=== PATIENT | female | born 2000 | race Caucasian/White ===

== ENCOUNTER 2021-05-04 17:18 | Emergency (ER) | payer OTHER, MEDICAID, SELFPAY ==
[2021-05-04] VITALS (18 sets, daily range): BP systolic 123–146; BP diastolic 58–93; PULSE 111–169; RESP 11–24; O2SAT 95–100
[2021-05-04 17:48] LABS: Add Manual Diff / Slide Review NO; Basophils Absolute Auto 0 /uL (0-100); Basophils Percent Auto 0.1 % (0-2); Eosinophils Absolute Auto 0 /uL (0-450); Eosinophils Percent Auto 0.2 % (2-4); Hematocrit 41.4 % (36-46); Hemoglobin 13.9 g/dL (12.0-16.0); Lymphocytes Absolute Auto 700 /uL (1100-4500); Lymphocytes Percent Auto 3.2 % (25-40); Mean Corpuscular HGB Conc 33.5 % (30-36); Mean Corpuscular Hemoglobin 25.5 PG (26-34); Mean Corpuscular Volume 76.1 fL (80-100); Monocytes Absolute Auto 1000 /uL (0-900); Monocytes Percent Auto 4.7 % (3-14); Neutrophils Absolute Auto 19400 /uL (1500-7000); Neutrophils Percent Auto 91.8 % (50-75); Platelet Count 490 X10^3/uL (150-400); Red Blood Cell Count 5.45 X10^6/uL (4.0-5.2); Red Cell Distribution Width 15.1 % (11.6-14.8); White Blood Cell Count 21.1 X10^3/uL (4.5-11.0)
--- NOTE | 2021-05-04 18:25 | DI.RAD.S_ITS ---
PROCEDURE: XR CHEST 1V INDICATIONS: chest pain, tachycardia TECHNIQUE: One view of the chest was acquired. COMPARISON: None. FINDINGS: Surgical changes and devices: Several overlying monitoring wires. Lungs and pleura: A subtle hazy right upper lobe alveolar opacity underlying monitoring wires, potentially summation artifact. No pleural effusion or pneumothorax. Mediastinum: Mediastinal contours appear normal. Heart size is normal. Bones and chest wall: No suspicious bony lesions. Overlying soft tissues appear unremarkable. IMPRESSION: 1. Possible hazy right upper lobe opacity, artifact versus infiltrate. Correlate clinically. Dictated by: Lynne Balderas M.D. on 05/04/2021 at 18:57 Approved by: Lynne Balderas M.D. on 05/04/2021 at 18:58
--- NOTE | 2021-05-04 18:25 | DI.US.S_ITS ---
PROCEDURE: US ABDOMEN LIMITED INDICATIONS: RUQ PAIN TECHNIQUE: Real-time focused scanning was performed of the abdominal right upper quadrant, with image documentation. COMPARISON: None. FINDINGS: The pancreas was not seen secondary to overlying bowel gas. The gallbladder is normal without stones, sludge, wall thickening, or pericholecystic fluid. The common bile duct is 3.8 mm. The visible liver is mildly hyperechoic compared to the kidney. No visible intrahepatic biliary dilatation. IMPRESSION: 1. Mild hepatic steatosis. 2. Normal gallbladder and no biliary dilatation. 3. Nonvisualized pancreas due to bowel gas. Dictated by: Lynne Balderas M.D. on 05/04/2021 at 19:32 Approved by: Lynne Balderas M.D. on 05/04/2021 at 19:34
--- NOTE | 2021-05-04 18:29 | ED.ABDPAIN ---
HPI - Abdominal Pain <Reginald Gambino PA-C - Last Filed: 05/04/21 20:05> General Chief Complaint: Abdominal Pain Stated Complaint: Vomiting ABD pain Time Seen by Provider: 05/04/21 18:19 Source: patient Mode of arrival: Ambulatory History of Present Illness HPI narrative: Patient is a 21-year-old female who presents to the ED complaining of right upper quadrant abdominal pain that started this morning when she woke up. There has been reports of nausea vomiting associated and has only had a small cup of apple sauce this morning but was able to eat a normal meal last night. No reported diarrhea pain is localized to the right upper quadrant does not radiate is constant. Patient has a history of heart problems in the past she was unable to recall the exact diagnosis however she was seen by [facility] few years ago and has not had any issues since then. Patient describes the pain to be a sharp sensation in severe Related Data Home Medications Medication Instructions Recorded Confirmed alprazolam 1 mg tablet (Xanax) 1 mg PO BID PRN 05/04/21 05/04/21 aspirin 81 mg capsule 81 mg PO DAILY 05/04/21 05/04/21 cetirizine 10 mg tablet 10 mg PO DAILY 05/04/21 05/04/21 clonazepam 2 mg tablet (Klonopin) 4 mg PO BID 05/04/21 05/04/21 estradiol cypionate 05/04/21 lamotrigine 100 mg tablet 50 mg PO DAILY 05/04/21 05/04/21 (Lamictal) levothyroxine 50 mcg capsule 50 mcg PO DAILY 05/04/21 05/04/21 progesterone micronized 200 mg 200 mg PO DAILY 05/04/21 05/04/21 capsule propranolol 20 mg tablet 20 mg PO BID 05/04/21 05/04/21 spironolactone 100 mg tablet 100 mg PO BID 05/04/21 05/04/21 trazodone 100 mg tablet 200 mg PO BEDTIME 05/04/21 05/04/21 Previous Rx's Medication Instructions Recorded ondansetron 4 mg disintegrating 4 mg PO Q8H #10 tab 05/05/21 tablet Allergies Allergy/AdvReac Type Severity Reaction Status Date / Time latex Allergy Verified 05/04/21 17:46 sumatriptan Allergy Verified 05/04/21 17:46 Patient History <Reginald Gambino PA-C - Last Filed: 05/04/21 20:05> Social History Smoking Status: Current every day smoker Smoking Status: Current every day smoker alcohol intake frequency: 0-2 drinks per day Exam <Reginald Gambino PA-C - Last Filed: 05/04/21 20:05> Initial Vital Signs Initial Vital Signs: Vital Signs Pulse Rate 169 H 05/04/21 17:22 Respiratory Rate 24 05/04/21 17:22 Blood Pressure 140/83 05/04/21 17:22 Pulse Oximetry 100 05/04/21 17:22 <Talia Maurer DO - Last Filed: 05/05/21 05:46> Initial Vital Signs Initial Vital Signs: Vital Signs Pulse Rate 169 H 05/04/21 17:22 Respiratory Rate 24 05/04/21 17:22 Blood Pressure 140/83 05/04/21 17:22 Pulse Oximetry 100 05/04/21 17:22 Course <Reginald Gambino PA-C - Last Filed: 05/04/21 20:05> Orders Ordered: ED Orders 05/04/21 20:50 Blood Culture Stat 05/04/21 21:30 UA Complete [Urinalysis and Microscopic] Stat Urine Drug Screen, Rapid Stat 05/04/21 22:06 CT abdomen pelvis wo con Stat Discontinued Medications Haloperidol (Haloperidol 5 Mg/Ml Vial) 2 mg IV NOW ONE Stop: 05/04/21 23:05 Last Admin: 05/04/21 23:32 Dose: 2 mg Documented by: HI Hydromorphone HCl (Hydromorphone 1 Mg Inj) 1 mg IV NOW ONE Stop: 05/04/21 18:46 Last Admin: 05/04/21 18:49 Dose: 1 mg Documented by: ZIYAD Hydromorphone HCl (Hydromorphone 1 Mg Inj) 1 mg IV NOW ONE Stop: 05/04/21 20:02 Last Admin: 05/04/21 20:13 Dose: 1 mg Documented by: ZIYAD Hydromorphone HCl (Hydromorphone 1 Mg Inj) 1 mg IV NOW ONE Stop: 05/04/21 22:07 Last Admin: 05/04/21 22:15 Dose: 1 mg Documented by: ZIYAD Sodium Chloride (Normal Saline 0.9%) 1,000 mls @ 1,000 mls/hr IV BOLUS ONE Stop: 05/04/21 19:24 Last Infusion: 05/04/21 21:24 Dose: 0 mls/hr Documented by: Admin: 05/04/21 18:30 Dose: 1,000 mls/hr Documented by: ZIYAD Piperacillin Sod/Tazobactam (Sod 3.375 gm/ Sodium Chloride) 100 mls @ 25 mls/hr IV Q8H MIR Last Infusion: 05/05/21 01:52 Dose: 0 mls/hr Documented by: Admin: 05/04/21 20:14 Dose: 25 mls/hr Documented by: ZIYAD Sodium Chloride (Normal Saline 0.9%) 1,000 mls @ 1,000 mls/hr IV BOLUS ONE Stop: 05/04/21 21:00 Last Infusion: 05/05/21 01:52 Dose: 0 mls/hr Documented by: Admin: 05/04/21 20:18 Dose: 1,000 mls/hr Documented by: ZIYAD Ketorolac Tromethamine (Ketorolac 30 Mg/Ml Vial) 15 mg IV NOW ONE Stop: 05/04/21 20:02 Last Admin: 05/04/21 20:13 Dose: 15 mg Documented by: ZIYAD Ondansetron HCl (Ondansetron 4 Mg Odt Prepack) 1 bottle MISC SEEINSTR ONE Stop: 05/05/21 01:32 Last Admin: 05/05/21 01:52 Dose: 1 bottle Documented by: HI Pantoprazole Sodium (Pantoprazole 40 Mg Vial) 40 mg IV NOW ONE Stop: 05/04/21 22:07 Last Admin: 05/04/21 22:15 Dose: 40 mg Documented by: ZIYAD Vital Signs Vital signs: Vital Signs - 8 hr 05/04/21 22:00 05/04/21 22:33 05/04/21 23:00 Temperature Pulse Rate 115 H 125 H 116 H Respiratory Rate 14 17 Blood Pressure 142/72 H Pulse Oximetry 97 99 96 05/04/21 23:01 05/04/21 23:30 05/05/21 00:00 Temperature Pulse Rate 113 H 128 H 102 H Respiratory Rate 16 11 L 13 Blood Pressure 128/58 L Pulse Oximetry 95 96 05/05/21 00:30 05/05/21 00:37 05/05/21 01:00 Temperature Pulse Rate 106 H 117 H 109 H Respiratory Rate 17 12 18 Blood Pressure 130/79 Pulse Oximetry 96 97 95 05/05/21 01:29 05/05/21 01:30 Temperature 98.2 F Pulse Rate 111 H 106 H Respiratory Rate 16 15 Blood Pressure 131/75 Pulse Oximetry 97 97 <Talia Maurer DO - Last Filed: 05/05/21 05:46> Orders Ordered: ED Orders 05/04/21 20:50 Blood Culture Stat 05/04/21 21:30 UA Complete [Urinalysis and Microscopic] Stat Urine Drug Screen, Rapid Stat 05/04/21 22:06 CT abdomen pelvis wo con Stat Discontinued Medications Haloperidol (Haloperidol 5 Mg/Ml Vial) 2 mg IV NOW ONE Stop: 05/04/21 23:05 Last Admin: 05/04/21 23:32 Dose: 2 mg Documented by: HI Hydromorphone HCl (Hydromorphone 1 Mg Inj) 1 mg IV NOW ONE Stop: 05/04/21 18:46 Last Admin: 05/04/21 18:49 Dose: 1 mg Documented by: ZIYAD Hydromorphone HCl (Hydromorphone 1 Mg Inj) 1 mg IV NOW ONE Stop: 05/04/21 20:02 Last Admin: 05/04/21 20:13 Dose: 1 mg Documented by: ZIYAD Hydromorphone HCl (Hydromorphone 1 Mg Inj) 1 mg IV NOW ONE Stop: 05/04/21 22:07 Last Admin: 05/04/21 22:15 Dose: 1 mg Documented by: ZIYAD Sodium Chloride (Normal Saline 0.9%) 1,000 mls @ 1,000 mls/hr IV BOLUS ONE Stop: 05/04/21 19:24 Last Infusion: 05/04/21 21:24 Dose: 0 mls/hr Documented by: Admin: 05/04/21 18:30 Dose: 1,000 mls/hr Documented by: ZIYAD Piperacillin Sod/Tazobactam (Sod 3.375 gm/ Sodium Chloride) 100 mls @ 25 mls/hr IV Q8H MIR Last Infusion: 05/05/21 01:52 Dose: 0 mls/hr Documented by: Admin: 05/04/21 20:14 Dose: 25 mls/hr Documented by: ZIYAD Sodium Chloride (Normal Saline 0.9%) 1,000 mls @ 1,000 mls/hr IV BOLUS ONE Stop: 05/04/21 21:00 Last Infusion: 05/05/21 01:52 Dose: 0 mls/hr Documented by: Admin: 05/04/21 20:18 Dose: 1,000 mls/hr Documented by: ZIYAD Ketorolac Tromethamine (Ketorolac 30 Mg/Ml Vial) 15 mg IV NOW ONE Stop: 05/04/21 20:02 Last Admin: 05/04/21 20:13 Dose: 15 mg Documented by: ZIYAD Ondansetron HCl (Ondansetron 4 Mg Odt Prepack) 1 bottle MISC SEEINSTR ONE Stop: 05/05/21 01:32 Last Admin: 05/05/21 01:52 Dose: 1 bottle Documented by: HI Pantoprazole Sodium (Pantoprazole 40 Mg Vial) 40 mg IV NOW ONE Stop: 05/04/21 22:07 Last Admin: 05/04/21 22:15 Dose: 40 mg Documented by: ZIYAD Vital Signs Vital signs: Vital Signs - 8 hr 05/04/21 22:00 05/04/21 22:33 05/04/21 23:00 Temperature Pulse Rate 115 H 125 H 116 H Respiratory Rate 14 17 Blood Pressure 142/72 H Pulse Oximetry 97 99 96 05/04/21 23:01 05/04/21 23:30 05/05/21 00:00 Temperature Pulse Rate 113 H 128 H 102 H Respiratory Rate 16 11 L 13 Blood Pressure 128/58 L Pulse Oximetry 95 96 05/05/21 00:30 05/05/21 00:37 05/05/21 01:00 Temperature Pulse Rate 106 H 117 H 109 H Respiratory Rate 17 12 18 Blood Pressure 130/79 Pulse Oximetry 96 97 95 05/05/21 01:29 05/05/21 01:30 Temperature 98.2 F Pulse Rate 111 H 106 H Respiratory Rate 16 15 Blood Pressure 131/75 Pulse Oximetry 97 97 MDM - Abdominal Pain <Reginald Gambino PA-C - Last Filed: 05/04/21 20:05> Lab Data Result diagrams: 05/04/21 17:40 05/04/21 18:09 Labs: Lab Results 05/04/21 05/04/21 05/04/21 Range/Units 17:40 17:40 18:09 WBC 21.1 H (4.5-11.0) X10^3/uL RBC 5.45 H (4.0-5.2) X10^6/uL Hgb 13.9 (12.0-16.0) g/dL Hct 41.4 (36-46) % MCV 76.1 L (80-100) fL MCH 25.5 L (26-34) PG MCHC 33.5 (30-36) % RDW 15.1 H (11.6-14.8) % Plt Count 490 H (150-400) X10^3/uL Neut % (Auto) 91.8 H (50-75) % Lymph % (Auto) 3.2 L (25-40) % Meagher % (Auto) 4.7 (3-14) % Eos % (Auto) 0.2 L (2-4) % Baso % (Auto) 0.1 (0-2) % Neut # (Auto) 68098 H (7949-4174) /uL Lymph # (Auto) 700 L (2391-0801) /uL Meagher # (Auto) 1000 H (0-900) /uL Eos # (Auto) 0 (0-450) /uL Baso # (Auto) 0 (0-100) /uL Sodium 140 (137-145) mmol/L Potassium 4.2 (3.4-5.1) mmol/L Chloride 103 (98-107) mmol/L Carbon Dioxide 23 (22-32) mmol/L BUN 17 (7-17) mg/dL Creatinine 0.72 (0.52-1.04) mg/dL Estimated GFR > 60.0 (>60) mL/min BUN/Creatinine Ratio 23.6 H (6-22) Glucose 120 H (70-100) mg/dL Lactate 2.2 H (0.7-2.1) mmol/L Calcium 10.2 (8.4-10.2) mg/dL Total Bilirubin 0.5 (0.2-1.3) mg/dL AST 26 (14-36) IU/L ALT 25 (<35) IU/L Alkaline Phosphatase 140 H (38-126) U/L Total Creatine Kinase (30-135) U/L CK-MB (CK-2) CK-MB (CK-2) Rel Index Troponin I (0.01-0.034) ng/mL NT-Pro-B Natriuret Pep (<125) pg/mL Total Protein 9.6 H (6.3-8.2) g/dL Albumin 5.1 H (3.5-5.0) g/dL Globulin 4.5 H (1.7-4.1) g/dL Albumin/Globulin Ratio 1.1 (1.0-2.8) Lipase 502 H (23-300) U/L Procalcitonin (<0.5) ng/mL Urine Color Urine Appearance Urine pH (4.5-8.0) Ur Specific [place] (1.000-1.035) Urine Protein (Negative) Urine Glucose (UA) (Negative) g/dL Urine Ketones (NEGATIVE) Urine Occult Blood (Negative) Urine Nitrate (Negative) Urine Bilirubin (NEGATIVE) Urine Urobilinogen (0.2) E.U./dL Ur Leukocyte Esterase (NEGATIVE) Urine RBC (0-5/HPF) Urine WBC (0-5/HPF) Ur Squamous Epith Cells (0-5/HPF) Urine Bacteria (None) Ur Culture Indicated? Micro UA Comment U Opiates 300ng/mL cut (Negative) Ur Oxycodone Screen (Negative) Urine Methadone Screen (Negative) Ur Barbiturates Screen (Negative) U Tricyclic Antidepress (Negative) Ur Phencyclidine Scrn (Negative) Ur Amphetamines Screen (Negative) U Methamphetamines Scrn (Negative) Ur MDMA Scrn (Ecstasy) (Negative) U Benzodiazepines Scrn (Negative) Urine Cocaine Screen (Negative) U Marijuana (THC) Screen (Negative) 05/04/21 05/04/21 05/04/21 Range/Units 18:09 18:09 21:14 WBC (4.5-11.0) X10^3/uL RBC (4.0-5.2) X10^6/uL Hgb (12.0-16.0) g/dL Hct (36-46) % MCV (80-100) fL MCH (26-34) PG MCHC (30-36) % RDW (11.6-14.8) % Plt Count (150-400) X10^3/uL Neut % (Auto) (50-75) % Lymph % (Auto) (25-40) % Meagher % (Auto) (3-14) % Eos % (Auto) (2-4) % Baso % (Auto) (0-2) % Neut # (Auto) (7235-1213) /uL Lymph # (Auto) (7669-3733) /uL Meagher # (Auto) (0-900) /uL Eos # (Auto) (0-450) /uL Baso # (Auto) (0-100) /uL Sodium (137-145) mmol/L Potassium (3.4-5.1) mmol/L Chloride (98-107) mmol/L Carbon Dioxide (22-32) mmol/L BUN (7-17) mg/dL Creatinine (0.52-1.04) mg/dL Estimated GFR (>60) mL/min BUN/Creatinine Ratio (6-22) Glucose (70-100) mg/dL Lactate 1.6 (0.7-2.1) mmol/L Calcium (8.4-10.2) mg/dL Total Bilirubin (0.2-1.3) mg/dL AST (14-36) IU/L ALT (<35) IU/L Alkaline Phosphatase (38-126) U/L Total Creatine Kinase 44 (30-135) U/L CK-MB (CK-2) TNP CK-MB (CK-2) Rel Index TNP Troponin I < 0.012 (0.01-0.034) ng/mL NT-Pro-B Natriuret Pep 16 (<125) pg/mL Total Protein (6.3-8.2) g/dL Albumin (3.5-5.0) g/dL Globulin (1.7-4.1) g/dL Albumin/Globulin Ratio (1.0-2.8) Lipase (23-300) U/L Procalcitonin 0.06 (<0.5) ng/mL Urine Color Urine Appearance Urine pH (4.5-8.0) Ur Specific [place] (1.000-1.035) Urine Protein (Negative) Urine Glucose (UA) (Negative) g/dL Urine Ketones (NEGATIVE) Urine Occult Blood (Negative) Urine Nitrate (Negative) Urine Bilirubin (NEGATIVE) Urine Urobilinogen (0.2) E.U./dL Ur Leukocyte Esterase (NEGATIVE) Urine RBC (0-5/HPF) Urine WBC (0-5/HPF) Ur Squamous Epith Cells (0-5/HPF) Urine Bacteria (None) Ur Culture Indicated? Micro UA Comment U Opiates 300ng/mL cut (Negative) Ur Oxycodone Screen (Negative) Urine Methadone Screen (Negative) Ur Barbiturates Screen (Negative) U Tricyclic Antidepress (Negative) Ur Phencyclidine Scrn (Negative) Ur Amphetamines Screen (Negative) U Methamphetamines Scrn (Negative) Ur MDMA Scrn (Ecstasy) (Negative) U Benzodiazepines Scrn (Negative) Urine Cocaine Screen (Negative) U Marijuana (THC) Screen (Negative) 05/04/21 05/04/21 Range/Units 21:30 21:30 WBC (4.5-11.0) X10^3/uL RBC (4.0-5.2) X10^6/uL Hgb (12.0-16.0) g/dL Hct (36-46) % MCV (80-100) fL MCH (26-34) PG MCHC (30-36) % RDW (11.6-14.8) % Plt Count (150-400) X10^3/uL Neut % (Auto) (50-75) % Lymph % (Auto) (25-40) % Meagher % (Auto) (3-14) % Eos % (Auto) (2-4) % Baso % (Auto) (0-2) % Neut # (Auto) (1961-0864) /uL Lymph # (Auto) (6209-5131) /uL Meagher # (Auto) (0-900) /uL Eos # (Auto) (0-450) /uL Baso # (Auto) (0-100) /uL Sodium (137-145) mmol/L Potassium (3.4-5.1) mmol/L Chloride (98-107) mmol/L Carbon Dioxide (22-32) mmol/L BUN (7-17) mg/dL Creatinine (0.52-1.04) mg/dL Estimated GFR (>60) mL/min BUN/Creatinine Ratio (6-22) Glucose (70-100) mg/dL Lactate (0.7-2.1) mmol/L Calcium (8.4-10.2) mg/dL Total Bilirubin (0.2-1.3) mg/dL AST (14-36) IU/L ALT (<35) IU/L Alkaline Phosphatase (38-126) U/L Total Creatine Kinase (30-135) U/L CK-MB (CK-2) CK-MB (CK-2) Rel Index Troponin I (0.01-0.034) ng/mL NT-Pro-B Natriuret Pep (<125) pg/mL Total Protein (6.3-8.2) g/dL Albumin (3.5-5.0) g/dL Globulin (1.7-4.1) g/dL Albumin/Globulin Ratio (1.0-2.8) Lipase (23-300) U/L Procalcitonin (<0.5) ng/mL Urine Color Yellow Urine Appearance Clear Urine pH 5.0 (4.5-8.0) Ur Specific [place] 1.020 (1.000-1.035) Urine Protein Negative (Negative) Urine Glucose (UA) Negative (Negative) g/dL Urine Ketones Negative (NEGATIVE) Urine Occult Blood Negative (Negative) Urine Nitrate Negative (Negative) Urine Bilirubin Negative (NEGATIVE) Urine Urobilinogen 0.2 (0.2) E.U./dL Ur Leukocyte Esterase Negative (NEGATIVE) Urine RBC None seen (0-5/HPF) Urine WBC None seen (0-5/HPF) Ur Squamous Epith Cells 0-1 /hpf (0-5/HPF) Urine Bacteria None seen (None) Ur Culture Indicated? Cult not indicated Micro UA Comment Microscopic normal U Opiates 300ng/mL cut Negative (Negative) Ur Oxycodone Screen Negative (Negative) Urine Methadone Screen Negative (Negative) Ur Barbiturates Screen Negative (Negative) U Tricyclic Antidepress Negative (Negative) Ur Phencyclidine Scrn Negative (Negative) Ur Amphetamines Screen Negative (Negative) U Methamphetamines Scrn Negative (Negative) Ur MDMA Scrn (Ecstasy) Negative (Negative) U Benzodiazepines Scrn Negative (Negative) Urine Cocaine Screen Negative (Negative) U Marijuana (THC) Screen Positive H (Negative) Point of care testing: Point of Care Testing Test Results Negative Urine Dip Bedside Urine Glucose Negative Bedside Urine Bilirubin + 1 Bedside Urine Ketone - Negative Urine Specific [place] 1.020 Bedside Urine Occult Blood - Negative Bedside Urine pH 6.0 Bedside Urine Protein - Negative Bedside Urine Urobilinogen - Negative Bedside Urine Nitrite - Negative Bedside Urine Leukocytes - Negative Esterase <Talia Erasto, DO - Last Filed: 05/05/21 05:46> Lab Data Labs: Lab Results 05/04/21 05/04/21 05/04/21 Range/Units 17:40 17:40 18:09 WBC 21.1 H (4.5-11.0) X10^3/uL RBC 5.45 H (4.0-5.2) X10^6/uL Hgb 13.9 (12.0-16.0) g/dL Hct 41.4 (36-46) % MCV 76.1 L (80-100) fL MCH 25.5 L (26-34) PG MCHC 33.5 (30-36) % RDW 15.1 H (11.6-14.8) % Plt Count 490 H (150-400) X10^3/uL Neut % (Auto) 91.8 H (50-75) % Lymph % (Auto) 3.2 L (25-40) % Meagher % (Auto) 4.7 (3-14) % Eos % (Auto) 0.2 L (2-4) % Baso % (Auto) 0.1 (0-2) % Neut # (Auto) 33140 H (9599-9344) /uL Lymph # (Auto) 700 L (9980-0573) /uL Meagher # (Auto) 1000 H (0-900) /uL Eos # (Auto) 0 (0-450) /uL Baso # (Auto) 0 (0-100) /uL Sodium 140 (137-145) mmol/L Potassium 4.2 (3.4-5.1) mmol/L Chloride 103 (98-107) mmol/L Carbon Dioxide 23 (22-32) mmol/L BUN 17 (7-17) mg/dL Creatinine 0.72 (0.52-1.04) mg/dL Estimated GFR > 60.0 (>60) mL/min BUN/Creatinine Ratio 23.6 H (6-22) Glucose 120 H (70-100) mg/dL Lactate 2.2 H (0.7-2.1) mmol/L Calcium 10.2 (8.4-10.2) mg/dL Total Bilirubin 0.5 (0.2-1.3) mg/dL AST 26 (14-36) IU/L ALT 25 (<35) IU/L Alkaline Phosphatase 140 H (38-126) U/L Total Creatine Kinase (30-135) U/L CK-MB (CK-2) CK-MB (CK-2) Rel Index Troponin I (0.01-0.034) ng/mL NT-Pro-B Natriuret Pep (<125) pg/mL Total Protein 9.6 H (6.3-8.2) g/dL Albumin 5.1 H (3.5-5.0) g/dL Globulin 4.5 H (1.7-4.1) g/dL Albumin/Globulin Ratio 1.1 (1.0-2.8) Lipase 502 H (23-300) U/L Procalcitonin (<0.5) ng/mL Urine Color Urine Appearance Urine pH (4.5-8.0) Ur Specific [place] (1.000-1.035) Urine Protein (Negative) Urine Glucose (UA) (Negative) g/dL Urine Ketones (NEGATIVE) Urine Occult Blood (Negative) Urine Nitrate (Negative) Urine Bilirubin (NEGATIVE) Urine Urobilinogen (0.2) E.U./dL Ur Leukocyte Esterase (NEGATIVE) Urine RBC (0-5/HPF) Urine WBC (0-5/HPF) Ur Squamous Epith Cells (0-5/HPF) Urine Bacteria (None) Ur Culture Indicated? Micro UA Comment U Opiates 300ng/mL cut (Negative) Ur Oxycodone Screen (Negative) Urine Methadone Screen (Negative) Ur Barbiturates Screen (Negative) U Tricyclic Antidepress (Negative) Ur Phencyclidine Scrn (Negative) Ur Amphetamines Screen (Negative) U Methamphetamines Scrn (Negative) Ur MDMA Scrn (Ecstasy) (Negative) U Benzodiazepines Scrn (Negative) Urine Cocaine Screen (Negative) U Marijuana (THC) Screen (Negative) 05/04/21 05/04/21 05/04/21 Range/Units 18:09 18:09 21:14 WBC (4.5-11.0) X10^3/uL RBC (4.0-5.2) X10^6/uL Hgb (12.0-16.0) g/dL Hct (36-46) % MCV (80-100) fL MCH (26-34) PG MCHC (30-36) % RDW (11.6-14.8) % Plt Count (150-400) X10^3/uL Neut % (Auto) (50-75) % Lymph % (Auto) (25-40) % Meagher % (Auto) (3-14) % Eos % (Auto) (2-4) % Baso % (Auto) (0-2) % Neut # (Auto) (5721-6536) /uL Lymph # (Auto) (8229-5247) /uL Meagher # (Auto) (0-900) /uL Eos # (Auto) (0-450) /uL Baso # (Auto) (0-100) /uL Sodium (137-145) mmol/L Potassium (3.4-5.1) mmol/L Chloride (98-107) mmol/L Carbon Dioxide (22-32) mmol/L BUN (7-17) mg/dL Creatinine (0.52-1.04) mg/dL Estimated GFR (>60) mL/min BUN/Creatinine Ratio (6-22) Glucose (70-100) mg/dL Lactate 1.6 (0.7-2.1) mmol/L Calcium (8.4-10.2) mg/dL Total Bilirubin (0.2-1.3) mg/dL AST (14-36) IU/L ALT (<35) IU/L Alkaline Phosphatase (38-126) U/L Total Creatine Kinase 44 (30-135) U/L CK-MB (CK-2) TNP CK-MB (CK-2) Rel Index TNP Troponin I < 0.012 (0.01-0.034) ng/mL NT-Pro-B Natriuret Pep 16 (<125) pg/mL Total Protein (6.3-8.2) g/dL Albumin (3.5-5.0) g/dL Globulin (1.7-4.1) g/dL Albumin/Globulin Ratio (1.0-2.8) Lipase (23-300) U/L Procalcitonin 0.06 (<0.5) ng/mL Urine Color Urine Appearance Urine pH (4.5-8.0) Ur Specific [place] (1.000-1.035) Urine Protein (Negative) Urine Glucose (UA) (Negative) g/dL Urine Ketones (NEGATIVE) Urine Occult Blood (Negative) Urine Nitrate (Negative) Urine Bilirubin (NEGATIVE) Urine Urobilinogen (0.2) E.U./dL Ur Leukocyte Esterase (NEGATIVE) Urine RBC (0-5/HPF) Urine WBC (0-5/HPF) Ur Squamous Epith Cells (0-5/HPF) Urine Bacteria (None) Ur Culture Indicated? Micro UA Comment U Opiates 300ng/mL cut (Negative) Ur Oxycodone Screen (Negative) Urine Methadone Screen (Negative) Ur Barbiturates Screen (Negative) U Tricyclic Antidepress (Negative) Ur Phencyclidine Scrn (Negative) Ur Amphetamines Screen (Negative) U Methamphetamines Scrn (Negative) Ur MDMA Scrn (Ecstasy) (Negative) U Benzodiazepines Scrn (Negative) Urine Cocaine Screen (Negative) U Marijuana (THC) Screen (Negative) 05/04/21 05/04/21 Range/Units 21:30 21:30 WBC (4.5-11.0) X10^3/uL RBC (4.0-5.2) X10^6/uL Hgb (12.0-16.0) g/dL Hct (36-46) % MCV (80-100) fL MCH (26-34) PG MCHC (30-36) % RDW (11.6-14.8) % Plt Count (150-400) X10^3/uL Neut % (Auto) (50-75) % Lymph % (Auto) (25-40) % Meagher % (Auto) (3-14) % Eos % (Auto) (2-4) % Baso % (Auto) (0-2) % Neut # (Auto) (3821-7161) /uL Lymph # (Auto) (1300-7313) /uL Meagher # (Auto) (0-900) /uL Eos # (Auto) (0-450) /uL Baso # (Auto) (0-100) /uL Sodium (137-145) mmol/L Potassium (3.4-5.1) mmol/L Chloride (98-107) mmol/L Carbon Dioxide (22-32) mmol/L BUN (7-17) mg/dL Creatinine (0.52-1.04) mg/dL Estimated GFR (>60) mL/min BUN/Creatinine Ratio (6-22) Glucose (70-100) mg/dL Lactate (0.7-2.1) mmol/L Calcium (8.4-10.2) mg/dL Total Bilirubin (0.2-1.3) mg/dL AST (14-36) IU/L ALT (<35) IU/L Alkaline Phosphatase (38-126) U/L Total Creatine Kinase (30-135) U/L CK-MB (CK-2) CK-MB (CK-2) Rel Index Troponin I (0.01-0.034) ng/mL NT-Pro-B Natriuret Pep (<125) pg/mL Total Protein (6.3-8.2) g/dL Albumin (3.5-5.0) g/dL Globulin (1.7-4.1) g/dL Albumin/Globulin Ratio (1.0-2.8) Lipase (23-300) U/L Procalcitonin (<0.5) ng/mL Urine Color Yellow Urine Appearance Clear Urine pH 5.0 (4.5-8.0) Ur Specific [place] 1.020 (1.000-1.035) Urine Protein Negative (Negative) Urine Glucose (UA) Negative (Negative) g/dL Urine Ketones Negative (NEGATIVE) Urine Occult Blood Negative (Negative) Urine Nitrate Negative (Negative) Urine Bilirubin Negative (NEGATIVE) Urine Urobilinogen 0.2 (0.2) E.U./dL Ur Leukocyte Esterase Negative (NEGATIVE) Urine RBC None seen (0-5/HPF) Urine WBC None seen (0-5/HPF) Ur Squamous Epith Cells 0-1 /hpf (0-5/HPF) Urine Bacteria None seen (None) Ur Culture Indicated? Cult not indicated Micro UA Comment Microscopic normal U Opiates 300ng/mL cut Negative (Negative) Ur Oxycodone Screen Negative (Negative) Urine Methadone Screen Negative (Negative) Ur Barbiturates Screen Negative (Negative) U Tricyclic Antidepress Negative (Negative) Ur Phencyclidine Scrn Negative (Negative) Ur Amphetamines Screen Negative (Negative) U Methamphetamines Scrn Negative (Negative) Ur MDMA Scrn (Ecstasy) Negative (Negative) U Benzodiazepines Scrn Negative (Negative) Urine Cocaine Screen Negative (Negative) U Marijuana (THC) Screen Positive H (Negative) Point of care testing: Point of Care Testing Test Results Negative Urine Dip Bedside Urine Glucose Negative Bedside Urine Bilirubin + 1 Bedside Urine Ketone - Negative Urine Specific [place] 1.020 Bedside Urine Occult Blood - Negative Bedside Urine pH 6.0 Bedside Urine Protein - Negative Bedside Urine Urobilinogen - Negative Bedside Urine Nitrite - Negative Bedside Urine Leukocytes - Negative Esterase Imaging Data US - abdomen: Radiologist's Impression: PROCEDURE: US ABDOMEN LIMITED ? INDICATIONS:? RUQ PAIN ? TECHNIQUE:? Real-time focused scanning was performed of the abdominal right upper quadrant, with image documentation.? ? COMPARISON:? None. ? FINDINGS:? The pancreas was not seen secondary to overlying bowel gas. The gallbladder is normal without stones, sludge, wall thickening, or pericholecystic fluid.? The common bile duct is 3.8 mm.? The visible liver is mildly hyperechoic compared to the kidney.? No visible intrahepatic biliary dilatation.? ? IMPRESSION:? ? 1. Mild hepatic steatosis. ? 2. Normal gallbladder and no biliary dilatation. ? 3. Nonvisualized pancreas due to bowel gas.? ? ? Dictated by: Lynne Balderas M.D. on 05/04/2021 at 19:32 ? ? Approved by: Lynne Balderas M.D. on 05/04/2021 at 19:34 ? Chest x-ray: Radiologist's Impression: PROCEDURE:? XR CHEST 1V ? INDICATIONS:? chest pain, tachycardia ? TECHNIQUE:? One view of the chest was acquired.? ? COMPARISON:? None. ? FINDINGS:? ? Surgical changes and devices:? Several overlying monitoring wires. ? Lungs and pleura:? A subtle hazy right upper lobe alveolar opacity underlying monitoring wires, potentially summation artifact. No pleural effusion or pneumothorax. ? Mediastinum:? Mediastinal contours appear normal.? Heart size is normal.? ? Bones and chest wall:? No suspicious bony lesions.? Overlying soft tissues appear unremarkable.? ? IMPRESSION:? ? 1. Possible hazy right upper lobe opacity, artifact versus infiltrate.? Correlate clinically.? ? ? Dictated by: Lynne Balderas M.D. on 05/04/2021 at 18:57 ? ? CT scan - chest: Radiologist's Impression: PROCEDURE:? CT ANGIO CHEST PE PROTOCOL ? INDICATIONS:? tachycardia, epigastric pain ? TECHNIQUE:? After the administration of intravenous contrast, 2 mm thick sections acquired from the pulmonary apices to the posterior costophrenic angles.? 3-dimensional maximum intensity projection (MIP) coronal and sagittal reformats were then acquired through the thorax.? For radiation dose reduction, the following was used:? automated exposure control, adjustment of mA and/or kV according to patient size.? ? COMPARISON:? [facility], CT, CT ANGIO CHEST PE, 04/27/2019, 17:29. ? FINDINGS:? Image quality:? Diagnostic.? ? Pulmonary arteries:? Pulmonary arteries are normal in size, and demonstrate no intraluminal filling defects to suggest central pulmonary embolism.? ? Lungs and pleura:? There is mild dependent atelectasis.? No focal consolidation.? No pleural effusions or pneumothorax.? Central and peripheral airways are patent.? ? Mediastinum:? Heart size is normal, with a small pericardial effusion which appears minimally increased compared to the prior study.? No mediastinal or hilar adenopathy.? There is triangular shaped soft tissue redemonstrated within the anterior mediastinum consistent with residual thymus.? Thoracic aorta is normal in caliber and enhancement.? Esophagus is normal in caliber, without hiatal hernia.? ? Bones and chest wall:? No suspicious bony lesions.? Ribs and thoracic spine appear intact throughout.? There are bilateral breast implants which appear intact.? No axillary or supraclavicular adenopathy.? ? Abdomen:? Visualized upper abdominal solid organs appear normal in the early arterial phase of enhancement.? ? IMPRESSION:? ? 1. No evidence of pulmonary embolism. ? 2. Small pericardial effusion appears minimally increased compared to the prior study. ? 3. No acute consolidation in the lungs.? ? ? Dictated by: Willard Rg M.D. on 05/04/2021 at 20:54 ? ? CT scan - abdomen/pelvis: Radiologist's Impression: PROCEDURE:? CT ABDOMEN PELVIS WO CON ? INDICATIONS:? severe ab pain ruq and periumbilical pain ? TECHNIQUE:? Axial sections were acquired from the lung bases to the pubic symphysis.? Coronal and sagittal reformats were performed.? For radiation dose reduction, the following was used: ?automated exposure control, adjustment of mA and/or kV according to patient size.? ? COMPARISON:? [facility], CT, CT ABDOMEN PELVIS WITH CONTRAST, 01/28/2021, 0:03.? [facility], CT, CT ANGIO CHEST PE PROTOCOL, 05/04/2021, 20:19. ? FINDINGS:? Image quality:? Excellent.? ? Lung bases:? There is minimal dependent atelectasis.? ? Heart:? Heart is normal in size. ? ? ABDOMEN: Liver:? Noncontrast evaluation demonstrates no discrete lesion. Gallbladder:? Within normal limits without calcified gallstones.? ? Biliary ducts:? No biliary ductal dilatation.? ? Pancreas:? Unremarkable.? ? Spleen:? Normal in size.? ? Adrenal Glands:? No adrenal nodules.? ? Kidneys and Ureters:? No hydronephrosis.? There is contrast within the renal collecting systems from recent chest CT.? ? Stomach and Bowel:? Stomach, small bowel loops, and residual colon are normal in caliber and wall thickness.? There are postsurgical changes compatible with partial right colonic resection redemonstrated.? There are also postsurgical changes consistent with partial sigmoid colon resection. Peritoneum:? No abnormal intraperitoneal fluid.? No free air.? ? Ventral Wall: ? No hernia.? Abdominal Nodes:? No retroperitoneal or mesenteric adenopathy by size criteria.? Vessels:? Aorta and inferior vena cava are normal in size.? ? PELVIS: Pelvic Organs:? Unremarkable.? ? Bladder:? There is dense contrast within the bladder secondary to recent chest CT.? ? Pelvic Nodes: No enlarged lymph nodes.? Miscellaneous: No inguinal hernias are seen. ? ? ? Bones:? Visualized osseous structures demonstrate no suspicious focal lesions. IMPRESSION:? ? 1.? No definite acute intra-abdominal abnormality. ? 2. Postsurgical changes consistent with prior partial bowel resection without evidence of obstruction or definite acute inflammatory changes.? ? ? Dictated by: Willard Rg M.D. on 05/04/2021 at 22:43 ? ? ECG Data Interpretation: Sinus tachycardia rate 141 NJ interval 128 QRS [address] changes MDM Narrative Medical decision making narrative: Patient signed out to me by Reginald Gambino patient is a 21-year-old male to female trans gender patient who had vaginal reconstruction surgery in January of 2021 history of cardiomyopathy anxiety presenting today with nausea vomiting and abdominal pain. She states she did use marijuana for the 1st time in a number of his months. Today is having pain in vomiting. She is quite tender in epigastric and right but upper quadrant however ultrasound is negative. A CT was done because of persistent tachycardia PE however CT angio was negative for PE. 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 She does have leukocytosis of 21,000 an tachycardia was given high dose of antibiotics here in the ED for possible infection, lactic acid was also noted to be mildly elevated at 2.2, and negative procalcitonin however source is not found. No abdominal source urine is negative chest is negative. At this time I see no need for continuing antibiotics. She requires multiple doses of anti nausea medication along with pain medication. Possible cannabis induced hyperemesis. She is tolerating oral fluids. At this time recommend outpatient treatment with oral rehydration. She is given prescription and prepack of Zofran. Recommend Tylenol and ibuprofen for pain management. Discharge Plan Departure Patient Disposition: Home Clinical Impression: Vomiting Instructions: DI for Vomiting -- Adult Activity Restrictions/Additional Instructions: *You have been diagnosed with vomiting *What to do: At this time I am not sure what caused your vomiting. It may or may not be related to the marijuana from yesterday. Good of very complete workup in the emergency department. At this time you do not a antibiotics for home. Increase fluid intake as tolerated. Recommend Gatorade or Gatorade like product. *Continue to take medications as directed Zofran 4 mg every 8 hours if needed for nausea vomit *Follow up with your primary care provider in 2-3 days or call [phone] *Return to ER if you should have increasing pain persistent vomiting dizziness lightheadedness passing out fever greater than 100.4 or any new, worsening or concerning symptoms Prescriptions: New ondansetron 4 mg tablet,disintegrating 4 mg PO Q8H Qty: 10 0RF No Action cetirizine 10 mg Tablet 10 mg PO DAILY 0RF alprazolam [Xanax] 1 mg Tablet 1 mg PO BID PRN (Reason: Anxiety) 0RF spironolactone 100 mg Tablet 100 mg PO BID 0RF Rx Instructions: 100mg morning, 150mg hs trazodone 100 mg Tablet 200 mg PO BEDTIME 0RF clonazepam [Klonopin] 2 mg Tablet 4 mg PO BID 0RF progesterone micronized 200 mg capsule 200 mg PO DAILY 0RF Rx Instructions: HS propranolol 20 mg Tablet 20 mg PO BID 0RF lamotrigine [Lamictal] 100 mg Tablet 50 mg PO DAILY 0RF levothyroxine 50 mcg Capsule 50 mcg PO DAILY 0RF aspirin 81 mg Capsule 81 mg PO DAILY 0RF estradiol cypionate 0RF Referrals: Miscellaneous,Doctor, MD [Primary Care Provider] - ED Sign-out <Reginald Gambino PA-C - Last Filed: 05/04/21 20:05> Sign Out Provider Sign Out Attestation: Report given to Dr. Maurer she will assume care and further treatment. <Talia Maurer DO - Last Filed: 05/05/21 05:46> Cosign ED Attending Cosignature Attestation: I was immediately available in the department for consultation. Documentation has been reviewed. I agree with assessment and plan.
[2021-05-04] MEDS: SODIUM CHLORIDE 0.9% 1,000 ML 1000 ML IV ×2 (18:30→20:18)
[2021-05-04 18:31] LABS: Alanine Aminotransferase 25 IU/L (<35); Albumin 5.1 g/dL (3.5-5.0); Albumin Globulin Ratio 1.1 (1.0-2.8); Alkaline Phosphatase 140 U/L (38-126); Aspartate Aminotransferase 26 IU/L (14-36); BUN Creatinine Ratio 23.6 (6-22); Bilirubin Total 0.5 mg/dL (0.2-1.3); Blood Urea Nitrogen 17 mg/dL (7-17); Calcium 10.2 mg/dL (8.4-10.2); Carbon Dioxide 23 mmol/L (22-32); Chloride 103 mmol/L (98-107); Estimated Glomerular Filt Rate > 60.0 mL/min (>60); Glucose 120 mg/dL (70-100); HEMOLYSIS < 15 (0-50); Lipase 502 U/L (23-300); Potassium 4.2 mmol/L (3.4-5.1); Sodium 140 mmol/L (137-145)
[2021-05-04 18:42] LABS: Globulin 4.5 g/dL (1.7-4.1); Total Protein 9.6 g/dL (6.3-8.2)
[2021-05-04] MEDS: HYDROMORPHONE 1 MG INJ IV ×3 (18:49→22:15)
[2021-05-04 18:51] LABS: Creatine Kinase 44 U/L (30-135)
[2021-05-04 19:04] LABS: NT-proBNP (BNP-Adult 18+) 16 pg/mL (<125); Troponin I < 0.012 ng/mL (0.01-0.034)
--- NOTE | 2021-05-04 19:05 | DI.CT.S_ITS ---
PROCEDURE: CT ANGIO CHEST PE PROTOCOL INDICATIONS: tachycardia, epigastric pain TECHNIQUE: After the administration of intravenous contrast, 2 mm thick sections acquired from the pulmonary apices to the posterior costophrenic angles. 3-dimensional maximum intensity projection (MIP) coronal and sagittal reformats were then acquired through the thorax. For radiation dose reduction, the following was used: automated exposure control, adjustment of mA and/or kV according to patient size. COMPARISON: [facility], CT, CT ANGIO CHEST PE, 04/27/2019, 17:29. FINDINGS: Image quality: Diagnostic. Pulmonary arteries: Pulmonary arteries are normal in size, and demonstrate no intraluminal filling defects to suggest central pulmonary embolism. Lungs and pleura: There is mild dependent atelectasis. No focal consolidation. No pleural effusions or pneumothorax. Central and peripheral airways are patent. Mediastinum: Heart size is normal, with a small pericardial effusion which appears minimally increased compared to the prior study. No mediastinal or hilar adenopathy. There is triangular shaped soft tissue redemonstrated within the anterior mediastinum consistent with residual thymus. Thoracic aorta is normal in caliber and enhancement. Esophagus is normal in caliber, without hiatal hernia. Bones and chest wall: No suspicious bony lesions. Ribs and thoracic spine appear intact throughout. There are bilateral breast implants which appear intact. No axillary or supraclavicular adenopathy. Abdomen: Visualized upper abdominal solid organs appear normal in the early arterial phase of enhancement. IMPRESSION: 1. No evidence of pulmonary embolism. 2. Small pericardial effusion appears minimally increased compared to the prior study. 3. No acute consolidation in the lungs. Dictated by: Willard Rg M.D. on 05/04/2021 at 20:54 Approved by: Willard Rg M.D. on 05/04/2021 at 20:58
[2021-05-04 19:19] LABS: Lactate (Lactic Acid) 2.2 mmol/L (0.7-2.1)
[2021-05-04] MEDS: KETOROLAC 30 MG/ML VIAL 15 MG IV (20:13)
[2021-05-04] MEDS: PIPERACILLIN/TAZO 3.375 GM in SODIUM CHLORIDE 0.9% 100 ML 25 ML IV (20:14)
[2021-05-04 20:33] LABS: Procalcitonin 0.06 ng/mL (<0.5)
[2021-05-04 21:09] LABS: Reflexed Lactate in 2 Hours Y
[2021-05-04 21:41] LABS: Appearance Urine UA CLEAR; Bilirubin Urine UA NEGATIVE (NEGATIVE); Color Urine UA YELLOW; Glucose Urine UA NEGATIVE (Negative); Ketones Urine UA NEGATIVE (NEGATIVE); Leukocyte Esterase Urine UA NEGATIVE (NEGATIVE); Nitrite Urine UA NEGATIVE (Negative); Occult Blood Urine UA NEGATIVE (Negative); Protein Urine UA NEGATIVE (Negative); Urobilinogen Urine UA 0.2 E.U./dL (0.2)
[2021-05-04 21:46] LABS: Bacteria Urine None Seen; RBC Urine None Seen (0-5/HPF); Squamous Epithelial Cell Urine 0-1 /HPF (0-5/HPF); WBC Urine None Seen (0-5/HPF)
[2021-05-04 21:46] LABS: Lactate 2HR (Lactic Acid Rflx) 1.6 mmol/L (0.7-2.1)
[2021-05-04 21:47] LABS: Culture Indicated Urine Cult Not Indicated; Urine Comments Microscopic Normal
--- NOTE | 2021-05-04 22:06 | DI.CT.S_ITS ---
PROCEDURE: CT ABDOMEN PELVIS WO CON INDICATIONS: severe ab pain ruq and periumbilical pain TECHNIQUE: Axial sections were acquired from the lung bases to the pubic symphysis. Coronal and sagittal reformats were performed. For radiation dose reduction, the following was used: automated exposure control, adjustment of mA and/or kV according to patient size. COMPARISON: [facility], CT, CT ABDOMEN PELVIS WITH CONTRAST, 01/28/2021, 0:03. [facility], CT, CT ANGIO CHEST PE PROTOCOL, 05/04/2021, 20:19. FINDINGS: Image quality: Excellent. Lung bases: There is minimal dependent atelectasis. Heart: Heart is normal in size. ABDOMEN: Liver: Noncontrast evaluation demonstrates no discrete lesion. Gallbladder: Within normal limits without calcified gallstones. Biliary ducts: No biliary ductal dilatation. Pancreas: Unremarkable. Spleen: Normal in size. Adrenal Glands: No adrenal nodules. Kidneys and Ureters: No hydronephrosis. There is contrast within the renal collecting systems from recent chest CT. Stomach and Bowel: Stomach, small bowel loops, and residual colon are normal in caliber and wall thickness. There are postsurgical changes compatible with partial right colonic resection redemonstrated. There are also postsurgical changes consistent with partial sigmoid colon resection. Peritoneum: No abnormal intraperitoneal fluid. No free air. Ventral Wall: No hernia. Abdominal Nodes: No retroperitoneal or mesenteric adenopathy by size criteria. Vessels: Aorta and inferior vena cava are normal in size. PELVIS: Pelvic Organs: Unremarkable. Bladder: There is dense contrast within the bladder secondary to recent chest CT. Pelvic Nodes: No enlarged lymph nodes. Miscellaneous: No inguinal hernias are seen. Bones: Visualized osseous structures demonstrate no suspicious focal lesions. IMPRESSION: 1. No definite acute intra-abdominal abnormality. 2. Postsurgical changes consistent with prior partial bowel resection without evidence of obstruction or definite acute inflammatory changes. Dictated by: Willard Rg M.D. on 05/04/2021 at 22:43 Approved by: Willard Rg M.D. on 05/04/2021 at 22:47
[2021-05-04] MEDS: PANTOPRAZOLE 40 MG VIAL IV (22:15)
[2021-05-04] MEDS: HALOPERIDOL 5 MG/ML VIAL 2 MG IV (23:32)
[2021-05-04 23:38] LABS: UR Morphine/Opiate cutoff 300 Negative (Negative); Ur Creatinine Normal (Normal); Ur Specific Gravity Normal (Normal); Urine Amphetamines Negative (Negative); Urine Barbiturates Negative (Negative); Urine Benzodiazepines Negative (Negative); Urine Cocaine Negative (Negative); Urine MDMA Negative (Negative); Urine Methadone Negative (Negative); Urine Methamphetamines Negative (Negative); Urine Phencyclidine Negative (Negative); Urine Tetrahydrocannabinol Positive (Negative); Urine pH Normal (Normal)
[2021-05-04 23:39] LABS: Urine Oxycodone Negative (Negative); Urine Tricyclic Antidepressant Negative (Negative)
[2021-05-05] VITALS: PULSE 102; RESP 13; O2SAT 96
[2021-05-05 00:30] VITALS: PULSE 106; RESP 17; O2SAT 96
[2021-05-05 00:37] VITALS: BP 130/79; PULSE 117; RESP 12; O2SAT 97
[2021-05-05 01:00] VITALS: PULSE 109; RESP 18; O2SAT 95
[2021-05-05 01:29] VITALS: BP 131/75; PULSE 111; RESP 16; O2SAT 97
[2021-05-05 01:30] VITALS: PULSE 106; RESP 15; TEMP 36.8; O2SAT 97
[2021-05-05] MEDS: ONDANSETRON 4 MG ODT PREPACK 1 BOTTLE MISC (01:52)
== END 2021-05-05 01:59 | disposition home or self-care (01) ==
PROVIDERS: Emergency Medicine; Physician Assistant; Emergency Provider Emergency Medicine
DX: R10.11 Right upper quadrant pain (principal); R11.2 Nausea with vomiting, unspecified; R00.0 Tachycardia, unspecified
CPT/HCPCS: 36415; 71045; 71275; 74176; 76705; 80053; 80305; 81001; 81003; 81025; 82550; 83605; 83690; 83880; 84145; 84484; 85025; 87040; 93005; 96365; 96366; 96375; 96376; 99284; C9113; J1170; J1630; J1885; J2543; Q9967

== ENCOUNTER 2021-05-20 11:13 | Emergency (ER) | payer OTHER, MEDICAID, SELFPAY ==
[2021-05-20] VITALS (12 sets, daily range): BP systolic 107–125; BP diastolic 53–84; PULSE 68–93; RESP 13–18; TEMP 36.7; O2SAT 96–98; BMI 30.4
[2021-05-20 12:15] LABS: Add Manual Diff / Slide Review NO; Basophils Absolute Auto 0 /uL (0-100); Basophils Percent Auto 0.3 % (0-2); Eosinophils Absolute Auto 0 /uL (0-450); Eosinophils Percent Auto 0.4 % (2-4); Hematocrit 36.3 % (36-46); Hemoglobin 12.1 g/dL (12.0-16.0); Lymphocytes Absolute Auto 800 /uL (1100-4500); Lymphocytes Percent Auto 6.7 % (25-40); Mean Corpuscular HGB Conc 33.4 % (30-36); Mean Corpuscular Hemoglobin 25.4 PG (26-34); Monocytes Absolute Auto 800 /uL (0-900); Monocytes Percent Auto 6.9 % (3-14); Neutrophils Absolute Auto 10500 /uL (1500-7000); Neutrophils Percent Auto 85.7 % (50-75); Platelet Count 383 X10^3/uL (150-400); Red Blood Cell Count 4.78 X10^6/uL (4.0-5.2); Red Cell Distribution Width 15.7 % (11.6-14.8); White Blood Cell Count 12.2 X10^3/uL (4.5-11.0)
--- NOTE | 2021-05-20 12:15 | DI.CT.S_ITS ---
PROCEDURE: CT HEAD/BRAIN WO CON INDICATIONS: seizure TECHNIQUE: Noncontrast 4.5 mm thick angled axial sections acquired from the foramen magnum to the vertex, with coronal and sagittal reformats. For radiation dose reduction, the following was used: automated exposure control, adjustment of mA and/or kV according to patient size. COMPARISON: [facility], CT, CT HEAD WITHOUT CONTRAST, 04/27/2019, 16:20. FINDINGS: Image quality: Excellent. CSF spaces: Basal cisterns are patent. No extra-axial fluid collections. Ventricles are normal in size and shape. Brain: No midline shift. No intracranial masses or hemorrhage. Velarde-white matter interface is normal. Skull and face: Calvarium and visualized facial bones are intact, without suspicious lesions. Sinuses: Visualized sinuses and mastoids are clear. IMPRESSION: 1. No acute intracranial abnormalities. Dictated by: Govind Long M.D. on 05/20/2021 at 12:42 Approved by: Govind Long M.D. on 05/20/2021 at 12:43
[2021-05-20] MEDS: lamoTRIgine 25 MG CHEW TABLET 50 MG PO (12:18)
--- NOTE | 2021-05-20 12:35 | ED.SEIZURE ---
HPI - Seizure General Chief Complaint: Seizure Stated Complaint: Seizure,hx of same Time Seen by Provider: 05/20/21 11:50 Source: patient and family Mode of arrival: EMS Limitations: no limitations History of Present Illness HPI Narrative: This is a 21-year-old male to female transgender individual with history reported of seizures, migraines, cardiomyopathy, vaginal reconstructive surgery in 2020 Patient has had intermittent nausea and vomiting for several weeks. Has not been taking their Lamictal regularly because of the nausea. Patient states Lamictal was originally prescribed for bipolar disorder they along with their significant other who describes himself as the as well as fiance described patient is having some tonic-clonic activity earlier today as well as multiple other seizures but these were not all witnessed but somewhat heard. According to significant other patient seemed confused afterwards. Patient does not follow regularly with a neurologist they get their prescriptions from their primary care physician. 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 Patient is on propranolol as well as Lamictal daily has been taking these intermittently. Denies other daily medications at the moment. Patient denies fevers or chills since then chest pain or shortness of breath. Patient has had some mild constipation but stooling, no dysuria, urgency or other urinary symptoms but did have a small amount of urinary incontinence today with seizure activity. Patient denies any cuts or bites to lips or mouth. States they feel kind of painful all over and has a headache consistent with prior migraines which is present. Patient states they do smoke occasional alcohol, marijuana but denies other illicit. Related Data Home Medications Medication Instructions Recorded Confirmed alprazolam 1 mg tablet (Xanax) 1 mg PO BID PRN 05/04/21 05/04/21 aspirin 81 mg capsule 81 mg PO DAILY 05/04/21 05/04/21 cetirizine 10 mg tablet 10 mg PO DAILY 05/04/21 05/04/21 clonazepam 2 mg tablet (Klonopin) 4 mg PO BID 05/04/21 05/04/21 estradiol cypionate 05/04/21 lamotrigine 100 mg tablet 50 mg PO DAILY 05/04/21 05/04/21 (Lamictal) levothyroxine 50 mcg capsule 50 mcg PO DAILY 05/04/21 05/04/21 progesterone micronized 200 mg 200 mg PO DAILY 05/04/21 05/04/21 capsule propranolol 20 mg tablet 20 mg PO BID 05/04/21 05/04/21 spironolactone 100 mg tablet 100 mg PO BID 05/04/21 05/04/21 trazodone 100 mg tablet 200 mg PO BEDTIME 05/04/21 05/04/21 Previous Rx's Medication Instructions Recorded ondansetron 4 mg disintegrating 4 mg PO Q8H #10 tab 05/05/21 tablet levetiracetam 500 mg tablet 500 mg PO Q12H #30 tab 05/20/21 (Keppra) ondansetron 4 mg disintegrating 4 mg PO Q6H PRN #7 tab 05/20/21 tablet Allergies Allergy/AdvReac Type Severity Reaction Status Date / Time latex Allergy Verified 05/04/21 17:46 sumatriptan Allergy Verified 05/04/21 17:46 Review of Systems Review of Systems ROS Unobtainable: All systems reviewed & are unremarkable except as noted in HPI and below Patient History Social History Smoking Status: Current every day smoker Smoking Status: Current every day smoker tobacco type: cigarettes, e-cigarettes and vaping alcohol intake frequency: 0-2 drinks per day Substance Use Type: marijuana Exam Narrative Exam Narrative: GEN: well nourished, well appearing, alert and oriented x 3, patient appears to be in mild distress. HEENT: Atraumatic, pupils are equal round reactive to light, extraocular movements are intact, nares are clear, there is no conjunctival pallor. Throat is clear without any exudates, erythema, tonsillar enlargement or uvular deviation, no facial droop. HEART: Regular rate and rhythm without murmur, clicks, rubs. Pulses are equal in upper and lower extremities LUNGS:Lungs clear to auscultation, no wheezes, rales, crackles, chest moves symmetrically ABD:bowel sounds normal, soft, non-tender, no guarding, rebound, rigidity, no masses noted, no hepatosplenomegaly :No CVA tenderness MSCL: Non-tender, no muscle atrophy, muscles strength 5/5 upper and lower extremities, full range of motion, normal gait NEURO:CN 2-12 intact, sensation normal SKIN: No rash, erythema or other skin changes noted. Initial Vital Signs Initial Vital Signs: Vital Signs Temperature 98.0 F 05/20/21 11:29 Pulse Rate 92 H 05/20/21 11:29 Respiratory Rate 18 05/20/21 11:29 Blood Pressure 123/82 05/20/21 11:29 Pulse Oximetry 96 05/20/21 11:29 Scores GCS Katie coma scale eye opening: Spontaneous Katie coma scale verbal response: Orientated [place] coma scale motor response: Obey commands Katie coma scale total score: 15 Course Orders Ordered: ED Orders 05/20/21 11:50 EKG-12 Lead Stat 05/20/21 12:10 Basic Metabolic Panel Stat Complete Blood Count AUTO DIFF Stat Ethanol (ETOH) Stat Lamotrigine Lamictal Stat Magnesium Stat Prolactin Stat 05/20/21 12:15 CT head/brain wo con Stat 05/20/21 16:00 Urinalysis and Microscopic Stat Urine Drug Screen, Rapid Stat Discontinued Medications Acetaminophen (Acetaminophen 325 Mg Tablet) 975 mg PO NOW ONE Stop: 05/20/21 13:59 Last Admin: 05/20/21 14:25 Dose: 975 mg Documented by: NATHANIEL Sodium Chloride (Normal Saline 0.9%) 1,000 mls @ 1,000 mls/hr IV BOLUS ONE Stop: 05/20/21 12:49 Last Infusion: 05/20/21 14:46 Dose: 0 mls/hr Documented by: Admin: 05/20/21 12:45 Dose: 1,000 mls/hr Documented by: MONY Levetiracetam 1,000 mg/ Sodium (Chloride) 110 mls @ 440 mls/hr IV NOW ONE Stop: 05/20/21 13:59 Last Infusion: 05/20/21 14:46 Dose: 0 mls/hr Documented by: Admin: 05/20/21 14:25 Dose: 440 mls/hr Documented by: NATHANIEL Lamotrigine (Lamotrigine 25 Mg Chew Tablet) 50 mg PO NOW ONE Stop: 05/20/21 11:51 Last Admin: 05/20/21 12:18 Dose: 50 mg Documented by: MONY Reevaluation(s) Reevaluation #1: Patient and I discussed findings so far we have not completed this. There on Lamictal but states this is for bipolar disorder. They have been taking it regularly. Reevaluation #2: Patient has not had any seizure activity. They are quite anxious. We discussed they were on Keppra at some point it was. They do not know why and they do not know if they had any side effects with it. We discussed if we should restart this and follow-up with Neurology. They would like to talk with her primary care physician but would be happy to take prescription so if they discussed this is good thing they can started. I think this would be very appropriate. Time: 17:02 Vital Signs Vital signs: Vital Signs - 8 hr 05/20/21 12:00 05/20/21 12:20 05/20/21 12:55 Pulse Rate 84 85 84 Respiratory Rate 15 16 13 Blood Pressure 117/81 115/77 125/84 Pulse Oximetry 97 97 98 05/20/21 13:00 05/20/21 13:20 05/20/21 14:40 Pulse Rate 87 82 91 H Respiratory Rate 14 14 18 Blood Pressure 116/78 117/69 109/58 L Pulse Oximetry 98 98 97 05/20/21 15:00 05/20/21 15:40 05/20/21 16:05 Pulse Rate 76 68 89 Respiratory Rate 18 18 18 Blood Pressure 107/62 108/56 L 107/64 Pulse Oximetry 97 97 98 05/20/21 17:15 Pulse Rate 91 H Respiratory Rate 15 Blood Pressure 110/53 L Pulse Oximetry 98 MDM - Seizure Lab Data Result diagrams: 05/20/21 12:10 05/20/21 12:10 Labs: Lab Results 05/20/21 05/20/21 05/20/21 Range/Units 12:10 12:10 16:00 WBC 12.2 H (4.5-11.0) X10^3/uL RBC 4.78 (4.0-5.2) X10^6/uL Hgb 12.1 (12.0-16.0) g/dL Hct 36.3 (36-46) % MCV 76.0 L (80-100) fL MCH 25.4 L (26-34) PG MCHC 33.4 (30-36) % RDW 15.7 H (11.6-14.8) % Plt Count 383 (150-400) X10^3/uL Neut % (Auto) 85.7 H (50-75) % Lymph % (Auto) 6.7 L (25-40) % [place] % (Auto) 6.9 (3-14) % Eos % (Auto) 0.4 L (2-4) % Baso % (Auto) 0.3 (0-2) % Neut # (Auto) 30870 H (2138-9344) /uL Lymph # (Auto) 800 L (9707-4806) /uL [place] # (Auto) 800 (0-900) /uL Eos # (Auto) 0 (0-450) /uL Baso # (Auto) 0 (0-100) /uL Sodium 141 (137-145) mmol/L Potassium 4.5 (3.4-5.1) mmol/L Chloride 102 (98-107) mmol/L Carbon Dioxide 29 (22-32) mmol/L BUN 9 (7-17) mg/dL Creatinine 0.66 (0.52-1.04) mg/dL Estimated GFR > 60.0 (>60) mL/min BUN/Creatinine Ratio 13.6 (6-22) Glucose 118 H (70-100) mg/dL Calcium 9.7 (8.4-10.2) mg/dL Magnesium 1.8 (1.6-2.3) mg/dL Prolactin 23.9 H (3.0-18.6) ng/mL Urine Color Urine Appearance Urine pH (4.5-8.0) Ur Specific [place] (1.000-1.035) Urine Protein (Negative) Urine Glucose (UA) (Negative) g/dL Urine Ketones (NEGATIVE) Urine Occult Blood (Negative) Urine Nitrate (Negative) Urine Bilirubin (NEGATIVE) Urine Urobilinogen (0.2) E.U./dL Ur Leukocyte Esterase (NEGATIVE) Urine RBC (0-5/HPF) Urine WBC (0-5/HPF) Ur Squamous Epith Cells (0-5/HPF) Ur Transition Epith Cell (0-5/HPF) Urine Bacteria (None) Hyaline Casts (None) Granular Casts (None) Urine Mucus (Negative) Ur Culture Indicated? U Opiates 300ng/mL cut Negative (Negative) Ur Oxycodone Screen Negative (Negative) Urine Methadone Screen Negative (Negative) Ur Barbiturates Screen Negative (Negative) U Tricyclic Antidepress Negative (Negative) Ur Phencyclidine Scrn Negative (Negative) Ur Amphetamines Screen Negative (Negative) U Methamphetamines Scrn Negative (Negative) Ur MDMA Scrn (Ecstasy) Negative (Negative) U Benzodiazepines Scrn Positive H (Negative) Urine Cocaine Screen Negative (Negative) U Marijuana (THC) Screen Positive H (Negative) Ethyl Alcohol < 10 ( - 10) mg/dL 05/20/21 Range/Units 16:00 WBC (4.5-11.0) X10^3/uL RBC (4.0-5.2) X10^6/uL Hgb (12.0-16.0) g/dL Hct (36-46) % MCV (80-100) fL MCH (26-34) PG MCHC (30-36) % RDW (11.6-14.8) % Plt Count (150-400) X10^3/uL Neut % (Auto) (50-75) % Lymph % (Auto) (25-40) % [place] % (Auto) (3-14) % Eos % (Auto) (2-4) % Baso % (Auto) (0-2) % Neut # (Auto) (2600-8048) /uL Lymph # (Auto) (1020-7082) /uL [place] # (Auto) (0-900) /uL Eos # (Auto) (0-450) /uL Baso # (Auto) (0-100) /uL Sodium (137-145) mmol/L Potassium (3.4-5.1) mmol/L Chloride (98-107) mmol/L Carbon Dioxide (22-32) mmol/L BUN (7-17) mg/dL Creatinine (0.52-1.04) mg/dL Estimated GFR (>60) mL/min BUN/Creatinine Ratio (6-22) Glucose (70-100) mg/dL Calcium (8.4-10.2) mg/dL Magnesium (1.6-2.3) mg/dL Prolactin (3.0-18.6) ng/mL Urine Color Yellow Urine Appearance Clear Urine pH 7.0 (4.5-8.0) Ur Specific [place] 1.010 (1.000-1.035) Urine Protein 1+ H (Negative) Urine Glucose (UA) Negative (Negative) g/dL Urine Ketones 1+ H (NEGATIVE) Urine Occult Blood Negative (Negative) Urine Nitrate Negative (Negative) Urine Bilirubin Negative (NEGATIVE) Urine Urobilinogen 0.2 (0.2) E.U./dL Ur Leukocyte Esterase Negative (NEGATIVE) Urine RBC 1-5/hpf (0-5/HPF) Urine WBC 1-5/hpf (0-5/HPF) Ur Squamous Epith Cells 1-5 /hpf (0-5/HPF) Ur Transition Epith Cell 1-5/hpf (0-5/HPF) Urine Bacteria Occasional (0-1) (None) Hyaline Casts 0-1/lpf (None) Granular Casts 0-1/lpf (None) Urine Mucus 1+ H (Negative) Ur Culture Indicated? Cult not indicated U Opiates 300ng/mL cut (Negative) Ur Oxycodone Screen (Negative) Urine Methadone Screen (Negative) Ur Barbiturates Screen (Negative) U Tricyclic Antidepress (Negative) Ur Phencyclidine Scrn (Negative) Ur Amphetamines Screen (Negative) U Methamphetamines Scrn (Negative) Ur MDMA Scrn (Ecstasy) (Negative) U Benzodiazepines Scrn (Negative) Urine Cocaine Screen (Negative) U Marijuana (THC) Screen (Negative) Ethyl Alcohol ( - 10) mg/dL Point of Care Testing Test Results Negative Glucose POC 107 Urine Dip Bedside Urine Glucose Negative Bedside Urine Bilirubin - Negative Bedside Urine Ketone +/- 5 Urine Specific [place] 1.015 Bedside Urine Occult Blood - Negative Bedside Urine pH 6.5 Bedside Urine Protein + 30 Bedside Urine Urobilinogen - Negative Bedside Urine Nitrite - Negative Bedside Urine Leukocytes - Negative Esterase Imaging Data CT scan - head: Radiologist's Impression: Janki Hall??21??F??2000 ? Allergy/Adv: latex, sumatriptan (More??) Close Head CT (Signed) Tiana Long - 05/20/21 Abdomen/Pelvis CT (Signed) Willard Rg - 05/04/21 Chest CTA (Signed) Willard Rg - 05/04/21 Chest X-Ray (Signed) Lynne Balderas - 05/04/21 Abdomen Ultrasound (Signed) Lynne Balderas - 05/04/21 Launch?[address] [address] [address] Scan Report Signed Patient: Janki Hall MR#: [id number] : 2000 Acct:[id number] Age/Sex: 21 / F Date of Service: 05/20/21 Loc: ED Accession Number: [id number] ?? Procedure: CT head/brain wo con Ordering Provider: Mitra Clement D.O. PROCEDURE:? CT HEAD/BRAIN WO CON ? INDICATIONS:? seizure ? TECHNIQUE:? Noncontrast 4.5 mm thick angled axial sections acquired from the foramen magnum to the vertex, with coronal and sagittal reformats.? For radiation dose reduction, the following was used:? automated exposure control, adjustment of mA and/or kV according to patient size.? ? COMPARISON:? [facility], CT, CT HEAD WITHOUT CONTRAST, 04/27/2019, 16:20. ? FINDINGS:? Image quality:? Excellent.? ? CSF spaces:? Basal cisterns are patent.? No extra-axial fluid collections.? Ventricles are normal in size and shape.? ? Brain:? No midline shift.? No intracranial masses or hemorrhage.? [place]-white matter interface is normal.? ? Skull and face:? Calvarium and visualized facial bones are intact, without suspicious lesions.? ? Sinuses:? Visualized sinuses and mastoids are clear.? ? IMPRESSION:? ? 1. No acute intracranial abnormalities. ? ? ? Dictated by: Govind Long M.D. on 05/20/2021 at 12:42 ? ? Approved by: Govind Long M.D. on 05/20/2021 at 12:43?? MDM Narrative Medical decision making narrative: This is a 21 year old individual with reported history of seizure disorder that had several seizures some witnessed some not. Patient is slightly tearful on arrival but alert, appropriate with no acute neurologic deficits and mentation is clear and has been stable during stay. No additional seizure activity in the department. Patient states that there stopped and had been on Keppra but was stopped by physician at a correctional facility several years ago they have also been taking their Lamictal intermittently secondary to some nausea and vomiting at home intermittently. Patient's head CT and lab work do not show major changes I feel patient is safe to return home today. We discussed possibly restarting Keppra and patient was loaded in the department. They would elect to wait and talk with her primary care provider. We did reach out to Dr. Negro but did not receive a call back. Patient is not currently established with a neurologist I think this would be helpful for further management and evaluation and was given referral as well. Return precautions were discussed as well as precautions for night driving, swimming or participating in high risk activities and patient expressed their understanding. Patient is returning home with roommate who can help keep an eye on the patient. Discharge Plan Departure Patient Disposition: Home Clinical Impression: Seizure Instructions: DI for Seizure Disorder -- Adult Activity Restrictions/Additional Instructions: Follow-up with your primary care physician. Feel free to discussed with your physician about starting Keppra. They may also have records about what your prior dosage was or if there are any issues or complications with the medicine. I would recommend follow-up with Neurology, no driving or high-risk activities until cleared by Neurology. Call for follow-up with neurology referral is included below. Recommend restarting your Keppra. As were unsure of the dose will started a low dosing can be adjusted by your physician or neurologist. Also included as prescription for antinausea medicine that you can take every 6 hours as needed. You may take this 20 minutes prior to her Lamictal if you are having so can keep this medication down. Please return for fevers, recurrent seizures, altered mental status, new chest pain, shortness of breath, persistent vomiting, new weakness numbness or loss of sensation or difficulty with ambulation or other new or concerning symptoms. Prescriptions: New levetiracetam [Keppra] 500 mg tablet 500 mg PO Q12H Qty: 30 0RF ondansetron 4 mg tablet,disintegrating 4 mg PO Q6H PRN (Reason: nausea and vomiting) Qty: 7 0RF No Action cetirizine 10 mg Tablet 10 mg PO DAILY 0RF alprazolam [Xanax] 1 mg Tablet 1 mg PO BID PRN (Reason: Anxiety) 0RF spironolactone 100 mg Tablet 100 mg PO BID 0RF Rx Instructions: 100mg morning, 150mg hs trazodone 100 mg Tablet 200 mg PO BEDTIME 0RF clonazepam [Klonopin] 2 mg Tablet 4 mg PO BID 0RF progesterone micronized 200 mg capsule 200 mg PO DAILY 0RF Rx Instructions: HS propranolol 20 mg Tablet 20 mg PO BID 0RF lamotrigine [Lamictal] 100 mg Tablet 50 mg PO DAILY 0RF levothyroxine 50 mcg Capsule 50 mcg PO DAILY 0RF aspirin 81 mg Capsule 81 mg PO DAILY 0RF estradiol cypionate 0RF ondansetron 4 mg tablet,disintegrating 4 mg PO Q8H Qty: 10 0RF Referrals: Mirna Negro DO [Primary Care Provider] - Chester Gimenez MD [Non-Staff] -
[2021-05-20] MEDS: SODIUM CHLORIDE 0.9% 1,000 ML 1000 ML IV (12:45)
[2021-05-20 13:43] LABS: BUN Creatinine Ratio 13.6 (6-22); Blood Urea Nitrogen 9 mg/dL (7-17); Calcium 9.7 mg/dL (8.4-10.2); Carbon Dioxide 29 mmol/L (22-32); Chloride 102 mmol/L (98-107); Estimated Glomerular Filt Rate > 60.0 mL/min (>60); Ethanol (ETOH) < 10 mg/dL; Glucose 118 mg/dL (70-100); HEMOLYSIS < 15 (0-50); Magnesium 1.8 mg/dL (1.6-2.3); Potassium 4.5 mmol/L (3.4-5.1); Sodium 141 mmol/L (137-145)
[2021-05-20 13:58] LABS: Prolactin 23.9 ng/mL (3.0-18.6)
[2021-05-20] MEDS: ACETAMINOPHEN 325 MG TABLET 975 MG PO (14:25)
[2021-05-20] MEDS: levETIRAcetam 1,000 MG in SODIUM CHLORIDE 0.9% 100 ML 440 ML IV (14:25)
[2021-05-20 16:19] LABS: Appearance Urine UA CLEAR; Bilirubin Urine UA NEGATIVE (NEGATIVE); Color Urine UA YELLOW; Glucose Urine UA NEGATIVE (Negative); Ketones Urine UA 1+ (NEGATIVE); Leukocyte Esterase Urine UA NEGATIVE (NEGATIVE); Nitrite Urine UA NEGATIVE (Negative); Occult Blood Urine UA NEGATIVE (Negative); Protein Urine UA 1+ (Negative); Urobilinogen Urine UA 0.2 E.U./dL (0.2)
[2021-05-20 16:23] LABS: UR Morphine/Opiate cutoff 300 Negative (Negative); Ur Creatinine Normal (Normal); Ur Specific Gravity Normal (Normal); Urine Amphetamines Negative (Negative); Urine Barbiturates Negative (Negative); Urine Benzodiazepines Positive (Negative); Urine Cocaine Negative (Negative); Urine MDMA Negative (Negative); Urine Methadone Negative (Negative); Urine Methamphetamines Negative (Negative); Urine Oxycodone Negative (Negative); Urine Phencyclidine Negative (Negative); Urine Tetrahydrocannabinol Positive (Negative); Urine Tricyclic Antidepressant Negative (Negative); Urine pH Normal (Normal)
[2021-05-20 16:51] LABS: Bacteria Urine Occasional (0-1); Culture Indicated Urine Cult Not Indicated; Granular Casts Urine 0-1/LPF; Hyaline Casts Urine 0-1/LPF; Mucus Urine 1+ (Negative); RBC Urine 1-5/HPF (0-5/HPF); Squamous Epithelial Cell Urine 1-5 /HPF (0-5/HPF); Transitional Epi Cells Urine 1-5/HPF (0-5/HPF); WBC Urine 1-5/HPF (0-5/HPF)
[2021-05-23 13:05] LABS: Lamotrigine Lamictal <1.0 ug/mL (2.0-20.0)
== END 2021-05-20 17:17 | disposition home or self-care (01) ==
PROVIDERS: Emergency Provider Emergency Medicine; PCP Family Medicine
DX: G40.909 Epilepsy, unspecified, not intractable, without status epilepticus (principal); F17.210 Nicotine dependence, cigarettes, uncomplicated; F17.290 Nicotine dependence, other tobacco product, uncomplicated; Z79.899 Other long term (current) drug therapy
CPT/HCPCS: 36415; 70450; 80048; 80175; 80305; 80320; 81001; 81003; 81025; 82962; 83735; 84146; 85025; 93005; 93010; 96361; 96365; 99284; J1953

== ENCOUNTER 2021-06-09 07:34 | Emergency (ER) | payer OTHER, MEDICAID, SELFPAY ==
[2021-06-09 07:35] VITALS: BP 131/92; PULSE 103; RESP 18; TEMP 36.8; O2SAT 96; BMI 28.0
--- NOTE | 2021-06-09 07:41 | ED_ITS ---
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 She states 1 of the episodes was dark and looked like coffee grounds. She has epigastric pain that seems to get a bit worse when she vomits and then gets back to its baseline intensity. She denies other or obvious provocation, palliation or radiation of her pain. She has had no fever chills. She is not dizzy nor weak or lightheaded. She states she had an episode of diarrhea yesterday. She denies any change in medications, new [id number]-sei-jjlwnae medications, dietary change, recent antibiotics, bad food, exposure to other ill persons or travel. She denies runny nose, sore throat or cough. She has no chest pain or shortness of breath. She denies dysuria, frequency or urgency. She denies vaginal bleeding or discharge Related Data Home Medications Medication Instructions Recorded Confirmed alprazolam 1 mg tablet (Xanax) 1 mg PO BID PRN 05/04/21 05/04/21 aspirin 81 mg capsule 81 mg PO DAILY 05/04/21 05/04/21 cetirizine 10 mg tablet 10 mg PO DAILY 05/04/21 05/04/21 clonazepam 2 mg tablet (Klonopin) 4 mg PO BID 05/04/21 05/04/21 estradiol cypionate 05/04/21 lamotrigine 100 mg tablet 50 mg PO DAILY 05/04/21 05/04/21 (Lamictal) levothyroxine 50 mcg capsule 50 mcg PO DAILY 05/04/21 05/04/21 progesterone micronized 200 mg 200 mg PO DAILY 05/04/21 05/04/21 capsule propranolol 20 mg tablet 20 mg PO BID 05/04/21 05/04/21 spironolactone 100 mg tablet 100 mg PO BID 05/04/21 05/04/21 trazodone 100 mg tablet 200 mg PO BEDTIME 05/04/21 05/04/21 Previous Rx's Medication Instructions Recorded ondansetron 4 mg disintegrating 4 mg PO Q8H #10 tab 05/05/21 tablet levetiracetam 500 mg tablet 500 mg PO Q12H #30 tab 05/20/21 (Keppra) ondansetron 4 mg disintegrating 4 mg PO Q6H PRN #7 tab 05/20/21 tablet pantoprazole 40 mg tablet,delayed 40 mg PO DAILY #30 tab 06/09/21 release (Protonix) Allergies Allergy/AdvReac Type Severity Reaction Status Date / Time Cedar And Derivatives Allergy Verified 06/09/21 07:52 latex Allergy Verified 06/09/21 07:49 sumatriptan Allergy Verified 06/09/21 07:49 Review of Systems Review of Systems Narrative: GENERAL: Denies chills, fatigue, malaise, fever, sweats. HEENT: Denies sinus pain, ear pain, sore throat, difficulty swallowing, dizziness. RESPIRATORY: Denies dyspnea, cough, wheezing, hemoptysis, sputum. CARDIOVASCULAR: Denies chest pain, palpitations, orthopnea, edema, GASTROINTESTINAL: See HPI : Denies dysuria, frequency, incontinence, hematuria, urinary retention. MUSCULOSKELETAL: denies weakness, joint pain, or bony pain SKIN: Denies rash, skin lesions, or other NEUROLOGIC: Denies weakness, headache, numbness, change in speech, confusion, seizures, incoordination. PSYCHIATRIC: No concerning psychosocial issues. 12 point review of systems is negative except for those stated above Patient History Social History Smoking Status: Current every day smoker Smoking Status: Current every day smoker tobacco type: cigarettes, e-cigarettes and vaping alcohol intake frequency: 0-2 drinks per day Substance Use Type: marijuana Exam Narrative Exam Narrative: GENERAL: [21 year old patient appears stated age. Well-developed patient, in mild distress. Appears uncomfortable but in no acute distress, vitals stable HEAD: Atraumatic. Normocephalic. EYES: Pupils equal round and reactive. Extraocular motions intact. No scleral icterus. No injection or drainage. ENT: Nose without bleeding, purulent drainage. Throat without erythema, tonsillar hypertrophy or exudate. Airway patent. NECK: Trachea midline. Non tender CARDIOVASCULAR: Regular rate and rhythm without murmurs, gallops, or rubs. RESPIRATORY: Clear to auscultation. Breath sounds equal bilaterally. No wheezes, rales, or rhonchi. GASTROINTESTINAL: Abdomen soft, mild epigastric tenderness, nondistended. EXTREMITIES: No edema or joint tenderness. BACK: Nontender without deformity or crepitance. No flank tenderness. NEURO: AOx3. SKIN: No rash or erythema of visible areas Initial Vital Signs Initial Vital Signs: Vital Signs Temperature 98.3 F 06/09/21 07:35 Pulse Rate 103 H 06/09/21 07:35 Respiratory Rate 18 06/09/21 07:35 Blood Pressure 131/92 H 06/09/21 07:35 Pulse Oximetry 96 06/09/21 07:35 Course Course Course Narrative: Patient brought garbage bag with emesis, light brown with very minimal bright red streaks, no coffee-grounds at this time. Orders Ordered: ED Orders 06/09/21 07:42 US abdomen limited Stat 06/09/21 07:53 Complete Blood Count AUTO DIFF Stat 06/09/21 09:09 Comprehensive Metabolic Panel Stat Lipase Stat Magnesium Stat Prothrombin Time INR Stat 06/09/21 10:08 Chest [XR chest 2V] Stat 06/09/21 10:20 COVID19 -Nasal RAPID/Pre-Proc Stat 06/09/21 12:34 Throat Culture Stat Discontinued Medications Sodium Chloride (Normal Saline 0.9%) 1,000 mls @ 1,000 mls/hr IV BOLUS ONE Stop: 06/09/21 08:40 Last Infusion: 06/09/21 10:35 Dose: 0 mls/hr Documented by: Admin: 06/09/21 08:08 Dose: 1,000 mls/hr Documented by: MARRY Ondansetron HCl (Ondansetron 4 Mg/2 Ml Inj) 4 mg IV NOW ONE Stop: 06/09/21 07:42 Last Admin: 06/09/21 08:08 Dose: 4 mg Documented by: MARRY Pantoprazole Sodium (Pantoprazole 40 Mg Vial) 40 mg IV NOW ONE Stop: 06/09/21 07:42 Last Admin: 06/09/21 08:08 Dose: 40 mg Documented by: MARRY Vital Signs Vital signs: Vital Signs - 8 hr 06/09/21 07:35 06/09/21 08:13 06/09/21 12:37 Temperature 98.3 F 97.4 F L Pulse Rate 103 H 99 H 72 Respiratory Rate 18 20 Blood Pressure 131/92 H 122/78 Pulse Oximetry 96 97 99 06/09/21 12:56 Temperature Pulse Rate 101 H Respiratory Rate 16 Blood Pressure 123/78 Pulse Oximetry 98 MDM - Nausea/Vomiting/Diarrhea Lab Data Result diagrams: 06/09/21 07:53 06/09/21 09:09 Labs: Lab Results 06/09/21 06/09/21 06/09/21 Range/Units 07:53 09:09 09:09 WBC 14.5 H (4.5-11.0) X10^3/uL RBC 5.27 H (4.0-5.2) X10^6/uL Hgb 13.5 (12.0-16.0) g/dL Hct 41.1 (36-46) % MCV 77.9 L (80-100) fL MCH 25.7 L (26-34) PG MCHC 32.9 (30-36) % RDW 16.4 H (11.6-14.8) % Plt Count 407 H (150-400) X10^3/uL Neut % (Auto) 88.3 H (50-75) % Lymph % (Auto) 6.8 L (25-40) % [facility] % (Auto) 3.6 (3-14) % Eos % (Auto) 1.1 L (2-4) % Baso % (Auto) 0.2 (0-2) % Neut # (Auto) 42042 H (9290-0410) /uL Lymph # (Auto) 1000 L (4804-7826) /uL [facility] # (Auto) 500 (0-900) /uL Eos # (Auto) 200 (0-450) /uL Baso # (Auto) 0 (0-100) /uL PT 11.7 (10.1-12.7) SECONDS INR 1.0 (0.9-1.3) Sodium 141 (137-145) mmol/L Potassium 4.9 (3.4-5.1) mmol/L Chloride 107 (98-107) mmol/L Carbon Dioxide 27 (22-32) mmol/L BUN 9 (7-17) mg/dL Creatinine 0.73 (0.52-1.04) mg/dL Estimated GFR > 60 (>60) mL/min BUN/Creatinine Ratio 12.3 (6-22) Glucose 126 H (70-100) mg/dL Calcium 10.0 (8.4-10.2) mg/dL Magnesium 1.8 (1.6-2.3) mg/dL Total Bilirubin 0.2 (0.2-1.3) mg/dL AST 29 (14-36) IU/L ALT 37 H (<35) IU/L Alkaline Phosphatase 107 (38-126) U/L Total Protein 8.4 H (6.3-8.2) g/dL Albumin 4.7 (3.5-5.0) g/dL Globulin 3.7 (1.7-4.1) g/dL Albumin/Globulin Ratio 1.3 (1.0-2.8) Lipase 99 (23-300) U/L SARS-CoV-2 (PCR) (Negative) 06/09/21 Range/Units 10:20 WBC (4.5-11.0) X10^3/uL RBC (4.0-5.2) X10^6/uL Hgb (12.0-16.0) g/dL Hct (36-46) % MCV (80-100) fL MCH (26-34) PG MCHC (30-36) % RDW (11.6-14.8) % Plt Count (150-400) X10^3/uL Neut % (Auto) (50-75) % Lymph % (Auto) (25-40) % [facility] % (Auto) (3-14) % Eos % (Auto) (2-4) % Baso % (Auto) (0-2) % Neut # (Auto) (2979-3309) /uL Lymph # (Auto) (1672-6279) /uL [facility] # (Auto) (0-900) /uL Eos # (Auto) (0-450) /uL Baso # (Auto) (0-100) /uL PT (10.1-12.7) SECONDS INR (0.9-1.3) Sodium (137-145) mmol/L Potassium (3.4-5.1) mmol/L Chloride (98-107) mmol/L Carbon Dioxide (22-32) mmol/L BUN (7-17) mg/dL Creatinine (0.52-1.04) mg/dL Estimated GFR (>60) mL/min BUN/Creatinine Ratio (6-22) Glucose (70-100) mg/dL Calcium (8.4-10.2) mg/dL Magnesium (1.6-2.3) mg/dL Total Bilirubin (0.2-1.3) mg/dL AST (14-36) IU/L ALT (<35) IU/L Alkaline Phosphatase (38-126) U/L Total Protein (6.3-8.2) g/dL Albumin (3.5-5.0) g/dL Globulin (1.7-4.1) g/dL Albumin/Globulin Ratio (1.0-2.8) Lipase (23-300) U/L SARS-CoV-2 (PCR) Negative (Negative) Urine Dip Bedside Urine Glucose Negative Bedside Urine Bilirubin - Negative Bedside Urine Ketone - Negative Urine Specific Beaver 1.025 Bedside Urine Occult Blood - Negative Bedside Urine pH 6.0 Bedside Urine Protein - Negative Bedside Urine Urobilinogen - Negative Bedside Urine Nitrite - Negative Bedside Urine Leukocytes - Negative Esterase Imaging Data US - abdomen: Radiologist's Impression: [place] [address] Ultrasound Report Signed Patient: Janki Hall MR#: [id number] : 2000 Acct:[id number] Age/Sex: 21 / F Date of Service: 06/09/21 Loc: ED Accession Number: [id number] ?? Procedure: US abdomen limited Ordering Provider: Audie Tan D.O. PROCEDURE:? US ABDOMEN LIMITED ? INDICATIONS:? EPIGASTRIC PAIN ? TECHNIQUE:? Real-time scanning was performed of the abdominal and retroperitoneal organs, with image documentation.? ? [facility], 05/04/[facility]21, 18:56. ? FINDINGS:? Liver:? Liver is normal in size and homogeneous in echotexture.? ? Gallbladder:? Gallbladder is normal in sonographic appearance without gallston es, gallbladder wall thickening, pericholecystic fluid, or abnormal sonographic Eli's.? ? Biliary ducts:? Intrahepatic bile ducts are non-dilated.? Extrahepatic bile duct caliber measures 4 mm.? Normal is 6-7 mm or less in diameter, or 10 mm or less post-cholecystectomy.? ? Pancreas:? Pancreas not visualized secondary to overlying bowel gas. ? Miscellaneous:? No free abdominal fluid.? ? IMPRESSION:? No acute sonographic abnormalities identified in the right upper quadrant.? Pancreas not visualized secondary to overlying bowel gas. ? ? ? Dictated by: Adilson Rai M.D. on 06/09/2021 at 8:10 ? ? Approved by: Adilson Rai M.D. on 06/09/2021 at 8:11 ? Chest x-ray: Radiologist's Impression: Janki Hall??21??F??2000 ? Allergy/Adv: Cedar And Derivatives, latex, sumatriptan (More??) Close Chest X-Ray (Signed) Joey Christianson - 06/09/21 Abdomen Ultrasound (Signed) Adilson Rai - 06/09/[address] (Signed) Tiana Long - 05/20/21 Abdomen/Pelvis CT (Signed) Willard Rg - 05/04/21 Chest CTA (Signed) Willard Rg - 05/04/21 Chest X-Ray (Signed) Lynne Balderas - 05/04/21 Abdomen Ultrasound (Signed) Lynne Balderas - 05/04/21 [place] [address] XRay Report Signed Patient: Janki Hall MR#: [id number] : 2000 Acct:[id number] Age/Sex: 21 / F Date of Service: 06/09/21 Loc: ED Accession Number: [id number] ?? Procedure: XR chest 2V Ordering Provider: Audie Tan D.O. PROCEDURE:? XR CHEST 2V ? INDICATIONS:? cough, vomiting ? TECHNIQUE:? 2 views of the chest were acquired.? ? COMPARISON:? [facility], CT, CT ANGIO CHEST PE, 04/27/2019, 17:29.? [facility], CT, CT ABDOMEN PELVIS WO CON, 05/04/2021, 22:24.? [facility], CR, XR CHEST 1 VIEW, 01/27/2021, 21:19.? [facility], CR, XR CHEST 1V, 05/04/2021, 18:31. ? FINDINGS:? ? Surgical changes and devices:? Mammoplasty implants are faintly seen. ? Lungs and pleura:? Lungs are clear.? No pleural effusions or pneumothorax.? ? Mediastinum:? Mediastinal contours are normal.? Heart size is normal.? ? Bones and chest wall:? No suspicious bony abnormalities.? Soft tissues appear unremarkable.? IMPRESSION:? Negative for infiltrate. ? ? Dictated by: Joey Christianson M.D. on 06/09/2021 at 10:27 ? ? Approved by: Joey Christianson M.D. on 06/09/2021 at 10:28 MDM Narrative Medical decision making narrative: Multiple etiologies for patient's symptoms considered including: [Pancreatitis versus gallbladder disease versus bowel obstruction versus other Patient's symptoms improved over duration of stay with above-stated therapies. Pain is well controlled, patient no longer vomiting, tolerating orals. Findings and discharge diagnosis discussed with patient/family followed by verbalization of understanding Return precautions discussed with patient/family whom verbalize understanding. Discharge Plan Departure Patient Disposition: Home Clinical Impression: Vomiting, Acute epigastric pain Instructions: DI for Abdominal Pain-Adult, DI for Vomiting -- Adult Activity Restrictions/Additional Instructions: *You have been diagnosed with [vomiting with epigastric pain. As we discussed her history and physical exam as well as labs are very reassuring. There is no indication of a bowel obstruction, pancreatitis, gallbladder disease. As we discussed we will wait on cultures for throat to determine if you might need treatment for your sore throat, if the culture would suggest you needed specific treatment we will call you and talk about how to help *What to do: *Please continue to take your regular medications as directed. [ x] New medication prescriptions sent to your pharmacy: [ [facility]] [ ] New medication written as a paper prescription [ ] No new medications given *Please follow up with your primary care provider in 2-3 days, call for an appointment. Let them know you were seen in the Emergency Department and that we ask that you be seen in follow up. We will electronically transmit a record of today's note if your PCP is in our system * please consider a clear liquid diet for the next 24-48 hours and then slowly advance as tolerated *Return to Emergency Department if you should have any new, worsening or concerning symptoms, such as [fever greater than 101 F, shaking chills, worsenin g pain, persistent vomiting or other bothersome symptoms] Prescriptions: New pantoprazole [Protonix] 40 mg tablet,delayed release (DR/EC) 40 mg PO DAILY Qty: 30 0RF No Action cetirizine 10 mg Tablet 10 mg PO DAILY 0RF alprazolam [Xanax] 1 mg Tablet 1 mg PO BID PRN (Reason: Anxiety) 0RF spironolactone 100 mg Tablet 100 mg PO BID 0RF Rx Instructions: 100mg morning, 150mg hs trazodone 100 mg Tablet 200 mg PO BEDTIME 0RF clonazepam [Klonopin] 2 mg Tablet 4 mg PO BID 0RF progesterone micronized 200 mg capsule 200 mg PO DAILY 0RF Rx Instructions: HS propranolol 20 mg Tablet 20 mg PO BID 0RF lamotrigine [Lamictal] 100 mg Tablet 50 mg PO DAILY 0RF levothyroxine 50 mcg Capsule 50 mcg PO DAILY 0RF aspirin 81 mg Capsule 81 mg PO DAILY 0RF estradiol cypionate 0RF ondansetron 4 mg tablet,disintegrating 4 mg PO Q8H Qty: 10 0RF levetiracetam [Keppra] 500 mg tablet 500 mg PO Q12H Qty: 30 0RF ondansetron 4 mg tablet,disintegrating 4 mg PO Q6H PRN (Reason: nausea and vomiting) Qty: 7 0RF Referrals: Mirna Negro DO [Primary Care Provider] -
--- NOTE | 2021-06-09 07:42 | DI.US.S_ITS ---
PROCEDURE: US ABDOMEN LIMITED INDICATIONS: EPIGASTRIC PAIN TECHNIQUE: Real-time scanning was performed of the abdominal and retroperitoneal organs, with image documentation. COMPARISON: [facility], , US ABDOMEN LIMITED, 05/04/2021, 18:56. FINDINGS: Liver: Liver is normal in size and homogeneous in echotexture. Gallbladder: Gallbladder is normal in sonographic appearance without gallstones, gallbladder wall thickening, pericholecystic fluid, or abnormal sonographic Eli's. Biliary ducts: Intrahepatic bile ducts are non-dilated. Extrahepatic bile duct caliber measures 4 mm. Normal is 6-7 mm or less in diameter, or 10 mm or less post-cholecystectomy. Pancreas: Pancreas not visualized secondary to overlying bowel gas. Miscellaneous: No free abdominal fluid. IMPRESSION: No acute sonographic abnormalities identified in the right upper quadrant. Pancreas not visualized secondary to overlying bowel gas. Dictated by: Adilson Rai M.D. on 06/09/2021 at 8:10 Approved by: Adilson Rai M.D. on 06/09/2021 at 8:11
[2021-06-09] MEDS: ONDANSETRON 4 MG/2 ML INJ IV (08:08)
[2021-06-09] MEDS: SODIUM CHLORIDE 0.9% 1,000 ML 1000 ML IV (08:08)
[2021-06-09] MEDS: PANTOPRAZOLE 40 MG VIAL IV (08:08)
[2021-06-09 08:13] VITALS: PULSE 99; O2SAT 97
[2021-06-09 08:49] LABS: Add Manual Diff / Slide Review NO; Basophils Absolute Auto 0 /uL (0-100); Basophils Percent Auto 0.2 % (0-2); Eosinophils Absolute Auto 200 /uL (0-450); Eosinophils Percent Auto 1.1 % (2-4); Hematocrit 41.1 % (36-46); Hemoglobin 13.5 g/dL (12.0-16.0); Lymphocytes Absolute Auto 1000 /uL (1100-4500); Lymphocytes Percent Auto 6.8 % (25-40); Mean Corpuscular HGB Conc 32.9 % (30-36); Mean Corpuscular Hemoglobin 25.7 PG (26-34); Mean Corpuscular Volume 77.9 fL (80-100); Monocytes Absolute Auto 500 /uL (0-900); Monocytes Percent Auto 3.6 % (3-14); Neutrophils Absolute Auto 12800 /uL (1500-7000); Neutrophils Percent Auto 88.3 % (50-75); Platelet Count 407 X10^3/uL (150-400); Red Blood Cell Count 5.27 X10^6/uL (4.0-5.2); Red Cell Distribution Width 16.4 % (11.6-14.8); White Blood Cell Count 14.5 X10^3/uL (4.5-11.0)
[2021-06-09 09:23] LABS: Prothrombin Time 11.7 SECONDS (10.1-12.7)
--- NOTE | 2021-06-09 10:08 | DI.RAD.S_ITS ---
PROCEDURE: XR CHEST 2V INDICATIONS: cough, vomiting TECHNIQUE: 2 views of the chest were acquired. COMPARISON: [facility], CT, CT ANGIO CHEST PE, 04/27/2019, 17:29. [facility], CT, CT ABDOMEN PELVIS WO CON, 05/04/2021, 22:24. [facility], CR, XR CHEST 1 VIEW, 01/27/2021, 21:19. [facility], CR, XR CHEST 1V, 05/04/2021, 18:31. FINDINGS: Surgical changes and devices: Mammoplasty implants are faintly seen. Lungs and pleura: Lungs are clear. No pleural effusions or pneumothorax. Mediastinum: Mediastinal contours are normal. Heart size is normal. Bones and chest wall: No suspicious bony abnormalities. Soft tissues appear unremarkable. IMPRESSION: Negative for infiltrate. Dictated by: Joey Christianson M.D. on 06/09/2021 at 10:27 Approved by: Joey Christianson M.D. on 06/09/2021 at 10:28
[2021-06-09 10:17] LABS: Alanine Aminotransferase 37 IU/L (<35); Albumin 4.7 g/dL (3.5-5.0); Albumin Globulin Ratio 1.3 (1.0-2.8); Alkaline Phosphatase 107 U/L (38-126); Aspartate Aminotransferase 29 IU/L (14-36); BUN Creatinine Ratio 12.3 (6-22); Bilirubin Total 0.2 mg/dL (0.2-1.3); Blood Urea Nitrogen 9 mg/dL (7-17); Carbon Dioxide 27 mmol/L (22-32); Chloride 107 mmol/L (98-107); Estimated Glomerular Filt Rate > 60 mL/min (>60); Globulin 3.7 g/dL (1.7-4.1); Glucose 126 mg/dL (70-100); HEMOLYSIS < 15 (0-50); Lipase 99 U/L (23-300); Magnesium 1.8 mg/dL (1.6-2.3); Potassium 4.9 mmol/L (3.4-5.1); Sodium 141 mmol/L (137-145); Total Protein 8.4 g/dL (6.3-8.2)
[2021-06-09 10:57] LABS: COVID19 -Nasal RAPID Negative (Negative)
[2021-06-09 12:37] VITALS: BP 122/78; PULSE 72; RESP 20; TEMP 36.3; O2SAT 99
[2021-06-09 12:56] VITALS: BP 123/78; PULSE 101; RESP 16; O2SAT 98
== END 2021-06-09 13:15 | disposition home or self-care (01) ==
PROVIDERS: Emergency Provider Emergency Medicine; PCP Family Medicine
DX: K92.0 Hematemesis (principal); R10.13 Epigastric pain; Z20.822 Contact with and (suspected) exposure to COVID-19
CPT/HCPCS: 36415; 71046; 76705; 80053; 81003; 83690; 83735; 85025; 85610; 87070; 87635; 96374; 96375; 99284; C9803; C9113; J2405

== ENCOUNTER 2021-06-18 08:16 | Emergency (ER) | payer OTHER, MEDICAID, SELFPAY ==
[2021-06-18 09:11] VITALS: BP 155/94; PULSE 91; RESP 16; TEMP 36.8; O2SAT 99; BMI 33.5
[2021-06-18] MEDS: ONDANSETRON 4 MG/2 ML INJ IV (09:27)
[2021-06-18] MEDS: SODIUM CHLORIDE 0.9% 1,000 ML 1000 ML IV ×2 (09:27→10:55)
[2021-06-18 09:30] LABS: Add Manual Diff / Slide Review NO; Basophils Absolute Auto 0 /uL (0-100); Basophils Percent Auto 0.2 % (0-2); Eosinophils Absolute Auto 100 /uL (0-450); Eosinophils Percent Auto 0.5 % (2-4); Hematocrit 36.7 % (36-46); Hemoglobin 12.3 g/dL (12.0-16.0); Lymphocytes Absolute Auto 1200 /uL (1100-4500); Lymphocytes Percent Auto 9.9 % (25-40); Mean Corpuscular HGB Conc 33.6 % (30-36); Mean Corpuscular Hemoglobin 25.5 PG (26-34); Monocytes Absolute Auto 700 /uL (0-900); Monocytes Percent Auto 5.7 % (3-14); Neutrophils Absolute Auto 9900 /uL (1500-7000); Neutrophils Percent Auto 83.7 % (50-75); Platelet Count 530 X10^3/uL (150-400); Red Blood Cell Count 4.83 X10^6/uL (4.0-5.2); Red Cell Distribution Width 15.7 % (11.6-14.8); White Blood Cell Count 11.8 X10^3/uL (4.5-11.0)
[2021-06-18 09:31] LABS: Alanine Aminotransferase 29 IU/L (<35); Albumin 4.9 g/dL (3.5-5.0); Albumin Globulin Ratio 1.2 (1.0-2.8); Alkaline Phosphatase 132 U/L (38-126); Aspartate Aminotransferase 30 IU/L (14-36); BUN Creatinine Ratio 13.8 (6-22); Bilirubin Total 0.8 mg/dL (0.2-1.3); Blood Urea Nitrogen 9 mg/dL (7-17); Calcium 9.7 mg/dL (8.4-10.2); Carbon Dioxide 24 mmol/L (22-32); Chloride 101 mmol/L (98-107); Estimated Glomerular Filt Rate > 60 mL/min (>60); Globulin 4.1 g/dL (1.7-4.1); Glucose 112 mg/dL (70-100); HEMOLYSIS 18 (0-50); Lipase 53 U/L (23-300); Potassium 3.8 mmol/L (3.4-5.1); Sodium 140 mmol/L (137-145)
--- NOTE | 2021-06-18 09:54 | ED_ITS ---
HPI - Nausea/Vomiting/Diarrhea General Chief complaint: Nausea/Vomiting/Diarrhea Stated complaint: Vomiting, not eating x 5 days Time Seen by Provider: 06/18/21 09:33 Source: patient Mode of arrival: Ambulatory History of Present Illness HPI Narrative: Patient is a 21-year-old male to female transgender, History of seizure disorder, hypothyroid, mental health, cardiomyopathy, vaginal reconstructive surgery in 2020, ongoing abdominal pain and vomiting for number of weeks. This is her 3rd visit in the last 4 weeks for the same. She states she has been seen by GI she had an endoscopy and colonoscopy showing hiatal hernia and esophag itis. She has Zofran and suppository Phenergan at she says it is working. She was on proton pump inhibitor but was changed to Protonix cousin was not working insurance will not cover Protonix as she is not taking anything. She says at the thought of food, she vomits and throws up. She is unable to tolerate any liquids or solids. Denies any dizziness or lightheadedness. Has some mid periumbilical and epigastric pain but not severe. No fever or chills. She does smoke marijuana daily she says in fact that is only thing that seems to help her. Related Data Home Medications Medication Instructions Recorded Confirmed alprazolam 1 mg tablet (Xanax) 1 mg PO BID PRN 05/04/21 05/04/21 aspirin 81 mg capsule 81 mg PO DAILY 05/04/21 05/04/21 cetirizine 10 mg tablet 10 mg PO DAILY 05/04/21 05/04/21 clonazepam 2 mg tablet (Klonopin) 4 mg PO BID 05/04/21 05/04/21 estradiol cypionate 05/04/21 lamotrigine 100 mg tablet 50 mg PO DAILY 05/04/21 05/04/21 (Lamictal) levothyroxine 50 mcg capsule 50 mcg PO DAILY 05/04/21 05/04/21 progesterone micronized 200 mg 200 mg PO DAILY 05/04/21 05/04/21 capsule propranolol 20 mg tablet 20 mg PO BID 05/04/21 05/04/21 spironolactone 100 mg tablet 100 mg PO BID 05/04/21 05/04/21 trazodone 100 mg tablet 200 mg PO BEDTIME 05/04/21 05/04/21 Previous Rx's Medication Instructions Recorded ondansetron 4 mg disintegrating 4 mg PO Q8H #10 tab 05/05/21 tablet levetiracetam 500 mg tablet 500 mg PO Q12H #30 tab 05/20/21 (Keppra) ondansetron 4 mg disintegrating 4 mg PO Q6H PRN #7 tab 05/20/21 tablet pantoprazole 40 mg tablet,delayed 40 mg PO DAILY #30 tab 06/09/21 release (Protonix) ondansetron 4 mg disintegrating 4 mg PO Q8H PRN #10 tab 06/18/21 tablet Allergies Allergy/AdvReac Type Severity Reaction Status Date / Time adhesive Allergy Verified 06/18/21 09:11 aripiprazole [From Abilify] Allergy Verified 06/18/21 09:11 [place] And Derivatives Allergy Verified 06/09/21 07:52 latex Allergy Verified 06/09/21 07:49 sumatriptan Allergy Verified 06/09/21 07:49 Review of Systems Review of Systems Narrative: GENERAL: Denies chills, fatigue, malaise, fever, sweats, travel HEENT: Denies sinus pain, ear pain, sore throat, difficulty swallowing, neck pain RESPIRATORY: Denies dyspnea, cough, wheezing, hemoptysis, sputum. CARDIOVASCULAR: Denies chest pain, palpitations, orthopnea, edema GASTROINTESTINAL: See HPI : Denies dysuria, frequency, incontinence, hematuria, urinary retention, flank pain. MUSCULOSKELETAL: Denies weakness, joint pain, or bony pain SKIN: No rash, no erythema, no pruritus NEUROLOGIC: Denies weakness, dizziness, headache, numbness, change in speech, confusion PSYCHIATRIC: No concerning psychosocial issues. 12 point review of systems is negative except for those stated above and HPI Patient History Social History Smoking Status: Current every day smoker Smoking Status: Current every day smoker tobacco type: cigarettes, e-cigarettes and vaping alcohol intake frequency: 0-2 drinks per day Substance Use Type: marijuana Exam Initial Vital Signs Initial Vital Signs: Vital Signs Temperature 98.2 F 06/18/21 09:11 Pulse Rate 91 H 06/18/21 09:11 Respiratory Rate 16 06/18/21 09:11 Blood Pressure 155/94 H 06/18/21 09:11 Pulse Oximetry 99 06/18/21 09:11 GENERAL: Alert well-appearing and in no acute distress. HEENT: Head atraumatic,EOMI, pupils reactive, face symmetric, moist mucous membranes CARDIOVASCULAR: Regular rate and rhythm without murmurs, rubs or gallops. RESPIRATORY: Breath sounds equal bilaterally, no wheezes rales or rhonchi. ABDOMEN: Soft, mild pain epigastric no guarding no rebound no distention EXTREMITIES: Normal range of motion, no clubbing or edema. Neurovascularly intact NEUROLOGICAL: Alert and oriented x4.Normal gait and speech. SKIN: Warm, dry, no laceration, no petechiae, no rashes or lesions. Course Orders Ordered: ED Orders 06/18/21 10:53 Ictotest Urine Stat Urine Microscopic Stat Discontinued Medications Haloperidol (Haloperidol 5 Mg/Ml Vial) 2 mg IV NOW ONE Stop: 06/18/21 09:57 Last Admin: 06/18/21 10:07 Dose: 2 mg Documented by: LONI Sodium Chloride (Normal Saline 0.9%) 1,000 mls @ 1,000 mls/hr IV BOLUS ONE Stop: 06/18/21 10:15 Last Infusion: 06/18/21 11:11 Dose: 0 mls/hr Documented by: Admin: 06/18/21 09:27 Dose: 1,000 mls/hr Documented by: LONI Sodium Chloride (Normal Saline 0.9%) 1,000 mls @ 1,000 mls/hr IV BOLUS ONE Stop: 06/18/21 12:56 Last Infusion: 06/18/21 11:45 Dose: 0 mls/hr Documented by: Admin: 06/18/21 10:55 Dose: 1,000 mls/hr Documented by: LONI Ketorolac Tromethamine (Ketorolac 30 Mg/Ml Vial) 15 mg IV NOW ONE Stop: 06/18/21 09:57 Last Admin: 06/18/21 10:07 Dose: 15 mg Documented by: LONI Levetiracetam (Levetiracetam 250 Mg Tablet) 500 mg PO NOW ONE Stop: 06/18/21 11:22 Last Admin: 06/18/21 12:41 Dose: Not Given Documented by: KATE Metoclopramide HCl (Metoclopramide 10 Mg/2 Ml Inj) 10 mg IV NOW ONE Stop: 06/18/21 11:15 Last Admin: 06/18/21 11:21 Dose: 10 mg Documented by: LONI Ondansetron HCl (Ondansetron 4 Mg/2 Ml Inj) 4 mg IV NOW ONE Stop: 06/18/21 09:17 Last Admin: 06/18/21 09:27 Dose: 4 mg Documented by: LONI Pantoprazole Sodium (Pantoprazole 40 Mg Vial) 40 mg IV NOW ONE Stop: 06/18/21 09:57 Last Admin: 06/18/21 10:07 Dose: 40 mg Documented by: LONI Vital Signs Vital signs: Vital Signs - 8 hr 06/18/21 12:30 Pulse Rate 98 H Blood Pressure 135/72 Pulse Oximetry 97 MDM - Nausea/Vomiting/Diarrhea Lab Data Result diagrams: 06/18/21 09:10 06/18/21 09:10 Labs: Lab Results 06/18/21 06/18/21 06/18/21 Range/Units 09:10 09:10 10:53 WBC 11.8 H (4.5-11.0) X10^3/uL RBC 4.83 (4.0-5.2) X10^6/uL Hgb 12.3 (12.0-16.0) g/dL Hct 36.7 (36-46) % MCV 76.0 L (80-100) fL MCH 25.5 L (26-34) PG MCHC 33.6 (30-36) % RDW 15.7 H (11.6-14.8) % Plt Count 530 H (150-400) X10^3/uL Neut % (Auto) 83.7 H (50-75) % Lymph % (Auto) 9.9 L (25-40) % [place] % (Auto) 5.7 (3-14) % Eos % (Auto) 0.5 L (2-4) % Baso % (Auto) 0.2 (0-2) % Neut # (Auto) 9900 H (5113-2635) /uL Lymph # (Auto) 1200 (5792-4357) /uL [place] # (Auto) 700 (0-900) /uL Eos # (Auto) 100 (0-450) /uL Baso # (Auto) 0 (0-100) /uL Sodium 140 (137-145) mmol/L Potassium 3.8 (3.4-5.1) mmol/L Chloride 101 (98-107) mmol/L Carbon Dioxide 24 (22-32) mmol/L BUN 9 (7-17) mg/dL Creatinine 0.65 (0.52-1.04) mg/dL Estimated GFR > 60 (>60) mL/min BUN/Creatinine Ratio 13.8 (6-22) Glucose 112 H (70-100) mg/dL Calcium 9.7 (8.4-10.2) mg/dL Total Bilirubin 0.8 (0.2-1.3) mg/dL AST 30 (14-36) IU/L ALT 29 (<35) IU/L Alkaline Phosphatase 132 H (38-126) U/L Total Protein 9.0 H (6.3-8.2) g/dL Albumin 4.9 (3.5-5.0) g/dL Globulin 4.1 (1.7-4.1) g/dL Albumin/Globulin Ratio 1.2 (1.0-2.8) Lipase 53 (23-300) U/L Ur Bilirubin Confirm (Negative) Urine RBC 1-5/hpf (0-5/HPF) Urine WBC 0-1/hpf (0-5/HPF) Ur Squamous Epith Cells 5-10 /hpf H (0-5/HPF) Urine Bacteria None seen (None) Ur Culture Indicated? Cult not indicated 06/18/21 Range/Units 10:53 WBC (4.5-11.0) X10^3/uL RBC (4.0-5.2) X10^6/uL Hgb (12.0-16.0) g/dL Hct (36-46) % MCV (80-100) fL MCH (26-34) PG MCHC (30-36) % RDW (11.6-14.8) % Plt Count (150-400) X10^3/uL Neut % (Auto) (50-75) % Lymph % (Auto) (25-40) % [place] % (Auto) (3-14) % Eos % (Auto) (2-4) % Baso % (Auto) (0-2) % Neut # (Auto) (6099-7994) /uL Lymph # (Auto) (8723-3819) /uL [place] # (Auto) (0-900) /uL Eos # (Auto) (0-450) /uL Baso # (Auto) (0-100) /uL Sodium (137-145) mmol/L Potassium (3.4-5.1) mmol/L Chloride (98-107) mmol/L Carbon Dioxide (22-32) mmol/L BUN (7-17) mg/dL Creatinine (0.52-1.04) mg/dL Estimated GFR (>60) mL/min BUN/Creatinine Ratio (6-22) Glucose (70-100) mg/dL Calcium (8.4-10.2) mg/dL Total Bilirubin (0.2-1.3) mg/dL AST (14-36) IU/L ALT (<35) IU/L Alkaline Phosphatase (38-126) U/L Total Protein (6.3-8.2) g/dL Albumin (3.5-5.0) g/dL Globulin (1.7-4.1) g/dL Albumin/Globulin Ratio (1.0-2.8) Lipase (23-300) U/L Ur Bilirubin Confirm Negative (Negative) Urine RBC (0-5/HPF) Urine WBC (0-5/HPF) Ur Squamous Epith Cells (0-5/HPF) Urine Bacteria (None) Ur Culture Indicated? Point of Care Testing Test Results Negative Urine Dip Bedside Urine Glucose Negative Bedside Urine Bilirubin + 1 Bedside Urine Ketone ++ 40 Urine Specific [place] 1.030 Bedside Urine Occult Blood - Negative Bedside Urine pH 6.0 Bedside Urine Protein + 30 Bedside Urine Urobilinogen - Negative Bedside Urine Nitrite - Negative Bedside Urine Leukocytes - Negative Esterase MDM Narrative Medical decision making narrative: Patient complains of nausea but she actually does not have any vomiting in the emergency department. Blood work is overall reassuring her potassium is it within normal limits along with her creatinine. She does have some abdominal pain but she has had CTs in the past biggest complaint today is nausea without vomiting. Blood work is overall reassuring. I have discussed with her that she does need outpatient follow-up. She already sees GI she has already had endoscopy and colonoscopy. At this time there is nothing else to do in the emergency department. Requesting Zofran prescription. At this time patient pain is controlled, I see no need for further imaging. Discharge Plan Departure Patient Disposition: Home Clinical Impression: Chronic nausea Instructions: DI for Nausea -- Adult Activity Restrictions/Additional Instructions: *You have been diagnosed with nausea *What to do: At this time I do not have an explanation for your nausea. I do recommend dietitian consult to help reintroduce food. Try to take boost or Ensure daily this will help with nutrient intake. *Continue to take medications as directed Famotidine 20 mg twice a day for 6 weeks Tylenol 1000 mg every 6 hours if needed for pain, (avoid NSAIDs this can increase your stomach pain) *Follow up with your primary care provider in 2-3 days or call [phone] *Return to ER if you should have dizziness lightheadedness fever, persistent vomiting for more than 24 hours or any new, worsening or concerning symptoms Prescriptions: New ondansetron 4 mg tablet,disintegrating 4 mg PO Q8H PRN (Reason: nausea and vomiting) Qty: 10 0RF No Action cetirizine 10 mg Tablet 10 mg PO DAILY 0RF alprazolam [Xanax] 1 mg Tablet 1 mg PO BID PRN (Reason: Anxiety) 0RF spironolactone 100 mg Tablet 100 mg PO BID 0RF Rx Instructions: 100mg morning, 150mg hs trazodone 100 mg Tablet 200 mg PO BEDTIME 0RF clonazepam [Klonopin] 2 mg Tablet 4 mg PO BID 0RF progesterone micronized 200 mg capsule 200 mg PO DAILY 0RF Rx Instructions: HS propranolol 20 mg Tablet 20 mg PO BID 0RF lamotrigine [Lamictal] 100 mg Tablet 50 mg PO DAILY 0RF levothyroxine 50 mcg Capsule 50 mcg PO DAILY 0RF aspirin 81 mg Capsule 81 mg PO DAILY 0RF estradiol cypionate 0RF ondansetron 4 mg tablet,disintegrating 4 mg PO Q8H Qty: 10 0RF levetiracetam [Keppra] 500 mg tablet 500 mg PO Q12H Qty: 30 0RF ondansetron 4 mg tablet,disintegrating 4 mg PO Q6H PRN (Reason: nausea and vomiting) Qty: 7 0RF pantoprazole [Protonix] 40 mg tablet,delayed release (DR/EC) 40 mg PO DAILY Qty: 30 0RF Referrals: Mirna Negro DO [Primary Care Provider] -
[2021-06-18] MEDS: HALOPERIDOL 5 MG/ML VIAL 2 MG IV (10:07)
[2021-06-18] MEDS: PANTOPRAZOLE 40 MG VIAL IV (10:07)
[2021-06-18] MEDS: KETOROLAC 30 MG/ML VIAL 15 MG IV (10:07)
[2021-06-18 10:56] LABS: Ictotest Urine Negative (Negative)
[2021-06-18 11:01] LABS: Bacteria Urine None Seen; Culture Indicated Urine Cult Not Indicated; RBC Urine 1-5/HPF (0-5/HPF); Squamous Epithelial Cell Urine 5-10 /HPF (0-5/HPF); WBC Urine 0-1/HPF (0-5/HPF)
[2021-06-18 11:14] VITALS: BP 133/68; PULSE 91; RESP 14; O2SAT 98
[2021-06-18] MEDS: METOCLOPRAMIDE 10 MG/2 ML INJ IV (11:21)
[2021-06-18 12:30] VITALS: BP 135/72; PULSE 98; O2SAT 97
== END 2021-06-18 12:44 | disposition home or self-care (01) ==
PROVIDERS: Emergency Provider Emergency Medicine; PCP Family Medicine
DX: R11.0 Nausea (principal); R10.9 Unspecified abdominal pain
CPT/HCPCS: 36415; 80053; 81003; 81015; 81025; 83690; 85025; 93005; 93010; 96361; 96374; 96375; 99284; C9113; J1630; J1885; J2405; J2765

== ENCOUNTER 2021-08-22 19:02 | Emergency (ER) | payer OTHER, MEDICAID, SELFPAY ==
[2021-08-22 19:06] VITALS: BP 148/91; PULSE 127; RESP 20; TEMP 36.2; O2SAT 98; BMI 31.9
== END 2021-08-22 20:24 | disposition left against medical advice (07) ==
PROVIDERS: Emergency Provider Emergency Medicine; PCP Family Medicine
CPT/HCPCS: 99281

== ENCOUNTER 2021-09-25 11:32 | Emergency (ER) | payer OTHER, MEDICAID, SELFPAY ==
[2021-09-25 11:35] VITALS: BP 119/69; PULSE 86; RESP 14; TEMP 36.7; O2SAT 99; BMI 29.5
--- NOTE | 2021-09-25 12:24 | DI.CT.S_ITS ---
PROCEDURE: CT HEAD/BRAIN WO CON INDICATIONS: multiple recurrent seizures TECHNIQUE: Noncontrast 4.5 mm thick angled axial sections acquired from the foramen magnum to the vertex, with coronal and sagittal reformats. For radiation dose reduction, the following was used: automated exposure control, adjustment of mA and/or kV according to patient size. COMPARISON: [facility], CT, CT HEAD/BRAIN WO CON, 05/20/2021, 12:24. FINDINGS: Image quality: Excellent. CSF spaces: Basal cisterns are patent. No extra-axial fluid collections. Ventricles are normal in size and shape. Brain: No midline shift. No intracranial masses or hemorrhage. [place]-white matter interface is normal. Skull and face: Calvarium and visualized facial bones are intact, without suspicious lesions. Sinuses: Visualized sinuses and mastoids are clear. IMPRESSION: No evidence acute intracranial process. Dictated by: Mando Manriquez M.D. on 09/25/2021 at 12:54 Approved by: Mando Manriquez M.D. on 09/25/2021 at 12:55
[2021-09-25 12:40] LABS: Add Manual Diff / Slide Review NO; Basophils Absolute Auto 100 /uL (0-100); Basophils Percent Auto 0.6 % (0-2); Eosinophils Absolute Auto 200 /uL (0-450); Eosinophils Percent Auto 1.6 % (2-4); Hematocrit 35.4 % (36-46); Hemoglobin 11.7 g/dL (12.0-16.0); Lymphocytes Absolute Auto 2300 /uL (1100-4500); Lymphocytes Percent Auto 15.4 % (25-40); Mean Corpuscular HGB Conc 33.2 % (30-36); Mean Corpuscular Volume 78.5 fL (80-100); Monocytes Absolute Auto 800 /uL (0-900); Monocytes Percent Auto 5.4 % (3-14); Neutrophils Absolute Auto 11400 /uL (1500-7000); Platelet Count 439 X10^3/uL (150-400); Red Blood Cell Count 4.51 X10^6/uL (4.0-5.2); White Blood Cell Count 14.9 X10^3/uL (4.5-11.0)
[2021-09-25] MEDS: ONDANSETRON 4 MG/2 ML INJ IV (12:45)
[2021-09-25 12:56] LABS: Alanine Aminotransferase 14 IU/L (<35); Albumin 3.9 g/dL (3.5-5.0); Albumin Globulin Ratio 1.1 (1.0-2.8); Alkaline Phosphatase 95 U/L (38-126); Aspartate Aminotransferase 22 IU/L (14-36); BUN Creatinine Ratio 18.8 (6-22); Bilirubin Total 0.2 mg/dL (0.2-1.3); Blood Urea Nitrogen 12 mg/dL (7-17); Calcium 8.7 mg/dL (8.4-10.2); Carbon Dioxide 28 mmol/L (22-32); Chloride 103 mmol/L (98-107); Estimated Glomerular Filt Rate > 60 mL/min (>60); Globulin 3.4 g/dL (1.7-4.1); Glucose 100 mg/dL (70-100); HEMOLYSIS < 15 (0-50); Potassium 3.9 mmol/L (3.4-5.1); Sodium 137 mmol/L (137-145); Total Protein 7.3 g/dL (6.3-8.2)
--- NOTE | 2021-09-25 13:01 | ED.SEIZURE ---
HPI - Seizure General Chief Complaint: Seizure Stated Complaint: States multiple seizures this morning, headache Time Seen by Provider: 09/25/21 12:23 Source: patient Mode of arrival: Ambulatory Limitations: no limitations History of Present Illness HPI Narrative: Patient is a 21-year-old male to female transgender, history of seizure disorder, hypothyroid, mental health, cardiomyopathy, vaginal reconstructive surgery in 2020 and appendectomy. Patient presents today with recurrent seizure activity at home. Patient suspects they have had possibly 6 seizures at home today. Patient states that the room was in disarray, things were knocked over and had urinary incontinence. Two episodes were witnessed that were short 1-2 minutes, with fairly short postictal state of 1 or 2 minutes in the other 10 seconds. Patient has had fever yesterday of 102 F and 101 today, had vomiting and diarrhea yesterday with possibly vomiting up there a.m. anti seizure medication and missed evening dose. Patient states they have had a sore throat. No chest pain or shortness of breath. No dysuria, urgency or frequency. Diarrhea has slowed but not stop. No black or bloody stools. Patient thinks they may have hit her head. Patient states allergies include sumatriptan and Toradol makes them feel suicidal. Patient does use tobacco, denies current alcohol use, does use marijuana and states uses Xanax recreationally. Patient is supposed to see Neurology and October to establish. Currently their primary care is managing their medications. Related Data Home Medications Medication Instructions Recorded Confirmed alprazolam 1 mg tablet (Xanax) 1 mg PO BID PRN Anxiety 05/04/21 05/04/21 aspirin 81 mg capsule 81 mg PO DAILY 05/04/21 05/04/21 cetirizine 10 mg tablet 10 mg PO DAILY 05/04/21 05/04/21 clonazepam 2 mg tablet (Klonopin) 4 mg PO BID 05/04/21 05/04/21 estradiol cypionate 05/04/21 lamotrigine 100 mg tablet 50 mg PO DAILY 05/04/21 05/04/21 (Lamictal) levothyroxine 50 mcg capsule 50 mcg PO DAILY 05/04/21 05/04/21 progesterone micronized 200 mg 200 mg PO DAILY 05/04/21 05/04/21 capsule propranolol 20 mg tablet 20 mg PO BID 05/04/21 05/04/21 spironolactone 100 mg tablet 100 mg PO BID 05/04/21 05/04/21 trazodone 100 mg tablet 200 mg PO BEDTIME 05/04/21 05/04/21 Previous Rx's Medication Instructions Recorded ondansetron 4 mg disintegrating 4 mg PO Q8H #10 tabs 05/05/21 tablet levetiracetam 500 mg tablet 500 mg PO Q12H #30 tabs 05/20/21 (Keppra) ondansetron 4 mg disintegrating 4 mg PO Q6H PRN nausea and 05/20/21 tablet vomiting #7 tabs pantoprazole 40 mg tablet,delayed 40 mg PO DAILY #30 tabs 06/09/21 release (Protonix) ondansetron 4 mg disintegrating 4 mg PO Q8H PRN nausea and 06/18/21 tablet vomiting #10 tabs levetiracetam 500 mg tablet 1,000 mg PO BID #30 tabs 09/25/21 (Keppra) Allergies Allergy/AdvReac Type Severity Reaction Status Date / Time adhesive Allergy Verified 09/25/21 11:42 aripiprazole [From Abilify] Allergy Verified 09/25/21 11:42 [place] And Derivatives Allergy Verified 09/25/21 11:42 latex Allergy Verified 09/25/21 11:42 sumatriptan Allergy Verified 09/25/21 11:42 Review of Systems Review of Systems ROS Unobtainable: All systems reviewed & are unremarkable except as noted in HPI and below Patient History Social History Smoking Status: Current every day smoker Smoking Status: Current every day smoker tobacco type: cigarettes, e-cigarettes and vaping alcohol intake frequency: 0-2 drinks per day Substance Use Type: marijuana Exam Narrative Exam Narrative: GEN: well nourished, well appearing, alert and oriented x 3, patient appears to be in mild distress. HEENT: Atraumatic, pupils are equal round reactive to light, extraocular movements are intact, nares are clear, TMs are clear with no fluid, there is no conjunctival pallor. Throat is clear without any exudates, erythema, tonsillar enlargement or uvular deviation HEART: Regular rate and rhythm without murmur, clicks, rubs. LUNGS:Lungs clear to auscultation, no wheezes, rales, crackles, chest moves symmetrically, no tachypnea accessory muscle use. ABD:bowel sounds normal, soft, non-tender, no guarding, rebound, rigidity, no masses noted, no hepatosplenomegaly :No CVA tenderness MSCL: Non-tender, no muscle atrophy, muscles strength 5/5 upper and lower extremities, full range of motion NEURO:CN 2-12 intact, sensation normal SKIN: No rash, erythema or other skin changes. Initial Vital Signs Initial Vital Signs: Vital Signs Temperature 98.1 F 09/25/21 11:35 Pulse Rate 86 09/25/21 11:35 Respiratory Rate 14 09/25/21 11:35 Blood Pressure 119/69 09/25/21 11:35 Pulse Oximetry 99 09/25/21 11:35 Oxygen Delivery Method 09/25/21 11:35 Scores GCS Mabel coma scale eye opening: Spontaneous Mabel coma scale verbal response: Orientated Katie coma scale motor response: Obey commands Katie coma scale total score: 15 Course Orders Ordered: ED Orders 09/25/21 12:24 CT head/brain wo con Stat 09/25/21 12:37 CBC Auto Diff [Complete Blood Count AUTO DIFF] Stat CMP [Comprehensive Metabolic Panel] Stat ETOH [Ethanol (ETOH)] Stat Lamotrigine Lamictal Stat Levetiracetam Keppra Stat 09/25/21 13:10 COVID19 -Nasal RAPID/Pre-Proc Stat 09/25/21 14:50 Urine Drug Screen, Rapid Stat Discontinued Medications Acetaminophen (Acetaminophen 325 Mg Tablet) 975 mg PO NOW ONE Stop: 09/25/21 14:08 Last Admin: 09/25/21 14:13 Dose: 975 mg Documented By: KEVIN Sodium Chloride (Normal Saline 0.9%) 1,000 mls @ 1,000 mls/hr IV BOLUS ONE Stop: 09/25/21 13:23 Last Admin: 09/25/21 13:23 Dose: Not Given Documented By: KEVIN Levetiracetam (Levetiracetam 250 Mg Tablet) 1,000 mg PO NOW ONE Stop: 09/25/21 14:59 Last Admin: 09/25/21 15:04 Dose: 1,000 mg Documented By: DHRUV Lorazepam (Lorazepam 0.5 Mg Tablet) 1 mg PO NOW ONE Stop: 09/25/21 13:17 Last Admin: 09/25/21 13:23 Dose: 1 mg Documented By: KEVIN Midazolam HCl (Midazolam 2 Mg/2 Ml Vial) 0.5 mg IV NOW ONE Stop: 09/25/21 15:40 Last Admin: 09/25/21 15:42 Dose: 0.5 mg Documented By: DHRUV Morphine Sulfate (Morphine 2 Mg/Ml Inj) 2 mg IV NOW ONE Stop: 09/25/21 13:14 Last Admin: 09/25/21 13:23 Dose: 2 mg Documented By: KEVIN Morphine Sulfate (Morphine 4 Mg/Ml Inj) 4 mg IV NOW ONE Stop: 09/25/21 15:06 Ondansetron HCl (Ondansetron 4 Mg/2 Ml Inj) 4 mg IV NOW ONE Stop: 09/25/21 12:35 Last Admin: 09/25/21 12:45 Dose: 4 mg Documented By: KEVIN Vital Signs Vital signs: Vital Signs - 8 hr 09/25/21 11:35 09/25/21 14:14 09/25/21 15:08 Temperature 98.1 F Pulse Rate 86 75 77 Respiratory Rate 14 18 16 Blood Pressure 119/69 112/74 106/58 L Pulse Oximetry 99 98 98 Oxygen Delivery Method Room Air Room Air 09/25/21 16:34 Temperature Pulse Rate 85 Respiratory Rate 16 Blood Pressure 108/59 L Pulse Oximetry 98 Oxygen Delivery Method Room Air MDM - Seizure Lab Data Result diagrams: 09/25/21 12:37 09/25/21 12:37 Labs: Lab Results 09/25/21 09/25/21 09/25/21 Range/Units 12:37 12:37 13:10 WBC 14.9 H (4.5-11.0) X10^3/uL RBC 4.51 (4.0-5.2) X10^6/uL Hgb 11.7 L (12.0-16.0) g/dL Hct 35.4 L (36-46) % MCV 78.5 L (80-100) fL MCH 26.0 (26-34) PG MCHC 33.2 (30-36) % RDW 16.0 H (11.6-14.8) % Plt Count 439 H (150-400) X10^3/uL Neut % (Auto) 77.0 H (50-75) % Lymph % (Auto) 15.4 L (25-40) % [place] % (Auto) 5.4 (3-14) % Eos % (Auto) 1.6 L (2-4) % Baso % (Auto) 0.6 (0-2) % Neut # (Auto) 68380 H (5426-6078) /uL Lymph # (Auto) 2300 (7710-1807) /uL [place] # (Auto) 800 (0-900) /uL Eos # (Auto) 200 (0-450) /uL Baso # (Auto) 100 (0-100) /uL Sodium 137 (137-145) mmol/L Potassium 3.9 (3.4-5.1) mmol/L Chloride 103 (98-107) mmol/L Carbon Dioxide 28 (22-32) mmol/L BUN 12 (7-17) mg/dL Creatinine 0.64 (0.52-1.04) mg/dL Estimated GFR > 60 (>60) mL/min BUN/Creatinine Ratio 18.8 (6-22) Glucose 100 (70-100) mg/dL Calcium 8.7 (8.4-10.2) mg/dL Total Bilirubin 0.2 (0.2-1.3) mg/dL AST 22 (14-36) IU/L ALT 14 (<35) IU/L Alkaline Phosphatase 95 (38-126) U/L Total Protein 7.3 (6.3-8.2) g/dL Albumin 3.9 (3.5-5.0) g/dL Globulin 3.4 (1.7-4.1) g/dL Albumin/Globulin Ratio 1.1 (1.0-2.8) U Opiates 300ng/mL cut (Negative) Ur Oxycodone Screen (Negative) Urine Methadone Screen (Negative) Ur Barbiturates Screen (Negative) U Tricyclic Antidepress (Negative) Ur Phencyclidine Scrn (Negative) Ur Amphetamines Screen (Negative) U Methamphetamines Scrn (Negative) Ur MDMA Scrn (Ecstasy) (Negative) U Benzodiazepines Scrn (Negative) Urine Cocaine Screen (Negative) U Marijuana (THC) Screen (Negative) Ethyl Alcohol < 10 ( - 10) mg/dL SARS-CoV-2 (PCR) Negative (Negative) 09/25/21 Range/Units 14:50 WBC (4.5-11.0) X10^3/uL RBC (4.0-5.2) X10^6/uL Hgb (12.0-16.0) g/dL Hct (36-46) % MCV (80-100) fL MCH (26-34) PG MCHC (30-36) % RDW (11.6-14.8) % Plt Count (150-400) X10^3/uL Neut % (Auto) (50-75) % Lymph % (Auto) (25-40) % [place] % (Auto) (3-14) % Eos % (Auto) (2-4) % Baso % (Auto) (0-2) % Neut # (Auto) (2916-1941) /uL Lymph # (Auto) (5031-6830) /uL [place] # (Auto) (0-900) /uL Eos # (Auto) (0-450) /uL Baso # (Auto) (0-100) /uL Sodium (137-145) mmol/L Potassium (3.4-5.1) mmol/L Chloride (98-107) mmol/L Carbon Dioxide (22-32) mmol/L BUN (7-17) mg/dL Creatinine (0.52-1.04) mg/dL Estimated GFR (>60) mL/min BUN/Creatinine Ratio (6-22) Glucose (70-100) mg/dL Calcium (8.4-10.2) mg/dL Total Bilirubin (0.2-1.3) mg/dL AST (14-36) IU/L ALT (<35) IU/L Alkaline Phosphatase (38-126) U/L Total Protein (6.3-8.2) g/dL Albumin (3.5-5.0) g/dL Globulin (1.7-4.1) g/dL Albumin/Globulin Ratio (1.0-2.8) U Opiates 300ng/mL cut Positive H (Negative) Ur Oxycodone Screen Negative (Negative) Urine Methadone Screen Negative (Negative) Ur Barbiturates Screen Negative (Negative) U Tricyclic Antidepress Negative (Negative) Ur Phencyclidine Scrn Negative (Negative) Ur Amphetamines Screen Negative (Negative) U Methamphetamines Scrn Negative (Negative) Ur MDMA Scrn (Ecstasy) Negative (Negative) U Benzodiazepines Scrn Positive H (Negative) Urine Cocaine Screen Negative (Negative) U Marijuana (THC) Screen Positive H (Negative) Ethyl Alcohol ( - 10) mg/dL SARS-CoV-2 (PCR) (Negative) Urine Dip Bedside Urine Glucose Negative Bedside Urine Bilirubin - Negative Bedside Urine Ketone - Negative Urine Specific [place] 1.025 Bedside Urine Occult Blood - Negative Bedside Urine pH 6 Bedside Urine Protein - Negative Bedside Urine Urobilinogen - Negative Bedside Urine Nitrite - Negative Bedside Urine Leukocytes - Negative Esterase Imaging Data CT scan - head: Radiologist's Impression: Close Head CT (Signed) Mando Manriquez - 09/25/21 Chest X-Ray (Signed) Arthur Christiansonsse - 06/09/21 Abdomen Ultrasound (Signed) CeceliaAdilson - 06/09/[address] (Signed) Tiana Long - 05/20/21 Abdomen/Pelvis CT (Signed) Willard Rg - 05/04/21 Chest CTA (Signed) Willard Rg - 05/04/21 Chest X-Ray (Signed) Lynne Balderas - 05/04/21 Abdomen Ultrasound (Signed) Lynne Balderas - 05/04/21 Launch?[place] [address] CT Scan Report Signed Patient: Janki Hall MR#: [id number] : 2000 Acct:[id number] Age/Sex: 21 / F Date of Service: 09/25/21 Loc: ED Accession Number: [id number] ?? Procedure: CT head/brain wo con Ordering Provider: Mitra Clement D.O. PROCEDURE:? CT HEAD/BRAIN WO CON ? INDICATIONS:? multiple recurrent seizures ? TECHNIQUE:? Noncontrast 4.5 mm thick angled axial sections acquired from the foramen magnum to the vertex, with coronal and sagittal reformats.? For radiation dose reduction, the following was used:? automated exposure control, adjustment of mA and/or kV according to patient size.? ? COMPARISON:? [facility], CT, CT HEAD/BRAIN WO CON, 05/20/2021, 12:24. ? FINDINGS:? Image quality:? Excellent.? ? CSF spaces:? Basal cisterns are patent.? No extra-axial fluid collections.? Ventricles are normal in size and shape.? ? Brain:? No midline shift.? No intracranial masses or hemorrhage.? Velarde-white matter interface is normal.? ? Skull and face:? Calvarium and visualized facial bones are intact, without suspicious lesions.? ? Sinuses:? Visualized sinuses and mastoids are clear.? ? IMPRESSION:? No evidence acute intracranial process. ? ? Dictated by: Mando Manriquez M.D. on 09/25/2021 at 12:54 ? ? Approved by: Mando Manriquez M.D. on 09/25/2021 at 12:55?? MDM Narrative Medical decision making narrative: This is a 21-year-old male female transgender individual who has a history of seizure disorder. Patient has had recent illness likely viral upper respiratory illness, patient is COVID negative had reported 102 F and 101 F temperatures at home with headache, myalgias, vomiting and diarrhea. Patient likely missed 1 possibly 2 doses of their anti seizure medication yesterday they were able to take the medication today patient had multiple possible seizures today, likely seizure threshold lower secondary to these [address] is negative, no acute laboratory findings for focal infection that can be easily treated with antibiotics, patient does not appear to be in status, no signs or changes consistent with meningitis patient is afebrile here without any neck pain but does complain of headache, patient has normal neurologic exam with no other acute focal findings. Patient does note that you Xanax recreationally and if there is any withdrawal component this could also lower seizure threshold. Patient has plan to establish with Neurology in November but has not seen them yet. Patient was loaded orally with Keppra plan to increase their dosage for the short term, return precautions were discussed, all questions answered. Patient to discuss with their physician about readjusting there medications. Discharge Plan Departure Patient Disposition: Home Clinical Impression: Seizure, Acute upper respiratory infection Instructions: DI for Seizure Disorder -- Adult Activity Restrictions/Additional Instructions: Illness can lower your seizure threshold causing you to have more frequent seizures. You may take Tylenol up to a 1000 mg every hours and/or ibuprofen up to 600 mg every 6 hours. For the short-term please increase your Keppra to 1000mg twice daily. Prescription sent to [facility] in [place]. Please return for rapidly worsening symptoms, worsening headaches, persistent vomiting, black or bloody stools, new chest pain, shortness of breath or abdominal pain, persistent fevers, altered mental status, seizure activity without return to baseline in between or persistent seizure activity. Prescriptions: New levetiracetam [Keppra] 500 mg tablet 1,000 mg PO BID Qty: 30 0RF No Action cetirizine 10 mg Tablet 10 mg PO DAILY alprazolam [Xanax] 1 mg Tablet 1 mg PO BID PRN (Reason: Anxiety) spironolactone 100 mg Tablet 100 mg PO BID Rx Instructions: 100mg morning, 150mg hs trazodone 100 mg Tablet 200 mg PO BEDTIME clonazepam [Klonopin] 2 mg Tablet 4 mg PO BID progesterone micronized 200 mg capsule 200 mg PO DAILY Rx Instructions: HS propranolol 20 mg Tablet 20 mg PO BID lamotrigine [Lamictal] 100 mg Tablet 50 mg PO DAILY levothyroxine 50 mcg Capsule 50 mcg PO DAILY aspirin 81 mg Capsule 81 mg PO DAILY estradiol cypionate ondansetron 4 mg tablet,disintegrating 4 mg PO Q8H Qty: 10 0RF levetiracetam [Keppra] 500 mg tablet 500 mg PO Q12H Qty: 30 0RF ondansetron 4 mg tablet,disintegrating 4 mg PO Q6H PRN (Reason: nausea and vomiting) Qty: 7 0RF pantoprazole [Protonix] 40 mg tablet,delayed release (DR/EC) 40 mg PO DAILY Qty: 30 0RF ondansetron 4 mg tablet,disintegrating 4 mg PO Q8H PRN (Reason: nausea and vomiting) Qty: 10 0RF Referrals: Mirna Negro DO [Primary Care Provider] - Visit Report Forms: Patient Portal/API
[2021-09-25] MEDS: LORazepam 0.5 MG TABLET 1 MG PO (13:23)
[2021-09-25] MEDS: MORPHINE 2 MG/ML INJ IV (13:23)
[2021-09-25 13:31] LABS: COVID19 -Nasal RAPID Negative (Negative)
--- NOTE | 2021-09-25 14:05 | PC.NURSE ---
pt visitor reports in last 20ish minutes pt experienced a very brief shaking episode lasted seconds, pt has [employer] watch with imani to track seizure activity and registered some kind of activity, pt alert and orient and not postictal. seizure pads remain in place.
[2021-09-25] MEDS: ACETAMINOPHEN 325 MG TABLET 975 MG PO (14:13)
[2021-09-25 14:14] VITALS: BP 112/74; PULSE 75; RESP 18; O2SAT 98
[2021-09-25 15:02] LABS: Ethanol (ETOH) < 10 mg/dL
[2021-09-25] MEDS: levETIRAcetam 250 MG TABLET 1000 MG PO (15:04)
[2021-09-25 15:08] VITALS: BP 106/58; PULSE 77; RESP 16; O2SAT 98
[2021-09-25 15:12] LABS: UR Morphine/Opiate cutoff 300 Positive (Negative); Ur Creatinine Normal (Normal); Ur Specific Gravity Normal (Normal); Urine Amphetamines Negative (Negative); Urine Cocaine Negative (Negative); Urine Methamphetamines Negative (Negative); Urine Tetrahydrocannabinol Positive (Negative); Urine pH Normal (Normal)
[2021-09-25 15:13] LABS: Urine Barbiturates Negative (Negative); Urine Benzodiazepines Positive (Negative); Urine MDMA Negative (Negative); Urine Methadone Negative (Negative); Urine Oxycodone Negative (Negative); Urine Phencyclidine Negative (Negative); Urine Tricyclic Antidepressant Negative (Negative)
--- NOTE | 2021-09-25 15:14 | PC.NURSE ---
Pt BP 106/58, provider notified and verbal order to hold off on Morphine at this time.
[2021-09-25] MEDS: MIDAZOLAM 2 MG/2 ML VIAL 0.5 MG IV (15:42)
[2021-09-25 16:34] VITALS: BP 108/59; PULSE 85; RESP 16; O2SAT 98
[2021-09-29 11:27] LABS: Levetiracetam Keppra 11.5 ug/mL (10.0-40.0)
[2021-09-29 20:18] LABS: Lamotrigine Lamictal 3.7 ug/mL (2.0-20.0)
== END 2021-09-25 16:56 | disposition home or self-care (01) ==
PROVIDERS: Emergency Provider Emergency Medicine; PCP Family Medicine
DX: G40.901 Epilepsy, unspecified, not intractable, with status epilepticus (principal); J06.9 Acute upper respiratory infection, unspecified; Z20.822 Contact with and (suspected) exposure to COVID-19
CPT/HCPCS: 36415; 70450; 80053; 80175; 80177; 80305; 80320; 81003; 85025; 87635; 96374; 96375; 99284; C9803; J2250; J2270; J2405

== ENCOUNTER 2021-09-30 08:14 | Emergency (ER) | payer OTHER, MEDICAID, SELFPAY ==
[2021-09-30] VITALS (39 sets, daily range): BP systolic 87–151; BP diastolic 52–109; PULSE 74–118; RESP 11–34; TEMP 36.9; O2SAT 93–100; BMI 30.1
--- NOTE | 2021-09-30 08:34 | PC.NURSE ---
Patient reports has had episodes like this before with several days of vomiting and abdominal pain off and on since I was a kid. Has had GI workups with no diagnosis she states. States also has epilepsy, has not been able to keep down a full dose of Keppra since .
[2021-09-30 08:44] LABS: Add Manual Diff / Slide Review NO; Basophils Absolute Auto 0 /uL (0-100); Basophils Percent Auto 0.2 % (0-2); Eosinophils Absolute Auto 100 /uL (0-450); Eosinophils Percent Auto 0.6 % (2-4); Hematocrit 39.4 % (36-46); Hemoglobin 13.4 g/dL (12.0-16.0); Lymphocytes Absolute Auto 1400 /uL (1100-4500); Mean Corpuscular Hemoglobin 26.6 PG (26-34); Mean Corpuscular Volume 78.1 fL (80-100); Monocytes Absolute Auto 800 /uL (0-900); Monocytes Percent Auto 3.3 % (3-14); Neutrophils Absolute Auto 20700 /uL (1500-7000); Neutrophils Percent Auto 89.9 % (50-75); Platelet Count 492 X10^3/uL (150-400); Red Blood Cell Count 5.05 X10^6/uL (4.0-5.2); Red Cell Distribution Width 15.4 % (11.6-14.8); White Blood Cell Count 23.1 X10^3/uL (4.5-11.0)
[2021-09-30 08:49] LABS: Alanine Aminotransferase 20 IU/L (<35); Albumin Globulin Ratio 1.1 (1.0-2.8); Alkaline Phosphatase 130 U/L (38-126); Aspartate Aminotransferase 30 IU/L (14-36); BUN Creatinine Ratio 16.9 (6-22); Bilirubin Total 0.7 mg/dL (0.2-1.3); Blood Urea Nitrogen 12 mg/dL (7-17); Calcium 9.6 mg/dL (8.4-10.2); Carbon Dioxide 23 mmol/L (22-32); Chloride 98 mmol/L (98-107); Estimated Glomerular Filt Rate > 60 mL/min (>60); Globulin 4.5 g/dL (1.7-4.1); Glucose 126 mg/dL (70-100); HEMOLYSIS 62 (0-50); Lipase 109 U/L (23-300); Magnesium 1.6 mg/dL (1.6-2.3); Potassium 4.4 mmol/L (3.4-5.1); Sodium 137 mmol/L (137-145); Total Protein 9.5 g/dL (6.3-8.2)
[2021-09-30] MEDS: ONDANSETRON 4 MG/2 ML INJ IV ×2 (08:55→15:40)
[2021-09-30] MEDS: levETIRAcetam 1,000 MG in SODIUM CHLORIDE 0.9% 100 ML 440 MG IV (08:55)
[2021-09-30] MEDS: diphenhydrAMINE 50 MG/ML VIAL 25 MG IV (08:55)
[2021-09-30] MEDS: SODIUM CHLORIDE 0.9% 1,000 ML 1000 ML IV ×3 (08:58→12:11)
--- NOTE | 2021-09-30 09:16 | ED.GENADULT ---
HPI - General Adult <Shara Munson MD - Last Filed: 10/05/21 17:59> General Chief complaint: Abdominal Pain Stated complaint: vomiting, abd pain Time Seen by Provider: 09/30/21 08:27 Source: patient Mode of arrival: Family Vehicle History of Present Illness HPI narrative: 21-year-old male to female transgender woman with a history of seizure disorder, hypothyroidism, agoraphobia, cardiomyopathy who presents with 3 days of flu-like symptoms, significant vomiting to the point where she is not able to take her anxiety or seizure medications increasing stomach pain, dizziness and today while standing to check into the emergency department had a syncopal episode. She describes fevers as high as 102 with chills, no diarrhea, abdominal pain from vomiting, no headaches, flank pain no lower extremity edema. She has not had any seizures. She does note daily marijuana use however the cyclic vomiting type symptoms predated the use of marijuana and she finds that the marijuana it typically helps with her nausea. She has had discussions regarding cannabinoid hyperemesis syndrome with prior providers Related Data Home Medications Medication Instructions Recorded Confirmed alprazolam 1 mg tablet (Xanax) 1 mg PO BID PRN Anxiety 05/04/21 05/04/21 aspirin 81 mg capsule 81 mg PO DAILY 05/04/21 05/04/21 cetirizine 10 mg tablet 10 mg PO DAILY 05/04/21 05/04/21 clonazepam 2 mg tablet (Klonopin) 4 mg PO BID 05/04/21 05/04/21 estradiol cypionate 05/04/21 lamotrigine 100 mg tablet 50 mg PO DAILY 05/04/21 05/04/21 (Lamictal) levothyroxine 50 mcg capsule 50 mcg PO DAILY 05/04/21 05/04/21 progesterone micronized 200 mg 200 mg PO DAILY 05/04/21 05/04/21 capsule propranolol 20 mg tablet 20 mg PO BID 05/04/21 05/04/21 spironolactone 100 mg tablet 100 mg PO BID 05/04/21 05/04/21 trazodone 100 mg tablet 200 mg PO BEDTIME 05/04/21 05/04/21 Previous Rx's Medication Instructions Recorded ondansetron 4 mg disintegrating 4 mg PO Q8H #10 tabs 05/05/21 tablet levetiracetam 500 mg tablet 500 mg PO Q12H #30 tabs 05/20/21 (Keppra) ondansetron 4 mg disintegrating 4 mg PO Q6H PRN nausea and 05/20/21 tablet vomiting #7 tabs pantoprazole 40 mg tablet,delayed 40 mg PO DAILY #30 tabs 06/09/21 release (Protonix) ondansetron 4 mg disintegrating 4 mg PO Q8H PRN nausea and 06/18/21 tablet vomiting #10 tabs levetiracetam 500 mg tablet 1,000 mg PO BID #30 tabs 09/25/21 (Keppra) levetiracetam 1,000 mg tablet 1,000 mg PO BID #90 tabs 10/01/21 (Keppra) ondansetron 4 mg disintegrating 4 mg PO Q8H PRN nausea and 10/01/21 tablet vomiting #10 tabs promethazine 25 mg rectal 25 mg NM Q6H PRN nausea and 10/01/21 suppository vomiting #12 ea Allergies Allergy/AdvReac Type Severity Reaction Status Date / Time adhesive Allergy Verified 09/30/21 08:50 aripiprazole [From Abilify] Allergy Verified 09/30/21 08:50 Kane And Derivatives Allergy Verified 09/30/21 08:50 latex Allergy Verified 09/30/21 08:50 sumatriptan Allergy Verified 09/30/21 08:50 ketorolac [From Toradol] AdvReac Verified 09/30/21 09:23 Review of Systems <Shara Munson MD - Last Filed: 10/05/21 17:59> Review of Systems Narrative: Remainder of complete review of systems is otherwise unremarkable except for that included in the HPI. Patient History <Shara Munson MD - Last Filed: 10/05/21 17:59> Medical History (Updated 09/30/21 @ 16:13 by Shara Munson MD) Agoraphobia Seizure Surgical History (Updated 09/30/21 @ 09:27 by Shara Munson MD) Transgender, status post gender affirmation surgery Social History Smoking Status: Current every day smoker Smoking Status: Current every day smoker tobacco type: cigarettes, e-cigarettes and vaping alcohol intake frequency: 0-2 drinks per day Substance Use Type: marijuana Exam <Shara Munson MD - Last Filed: 10/05/21 17:59> Initial Vital Signs Initial Vital Signs: Vital Signs Respiratory Rate 28 H 09/30/21 08:24 Blood Pressure 147/81 H 09/30/21 08:24 Pulse Oximetry 98 09/30/21 08:24 General: Pale, shivering, anxious but Able to give a complete and coherent history. Well-nourished well-developed HEENT: Moist mucous membranes, normal sclera with reactive pupils, Neck: supple Respiratory: Lungs are clear to auscultation, no wheezing no rales no rhonchi. Full and symmetrical air movement Cardiac: Tachycardic but otherwise Regular rate and rhythm no murmurs no bruits Abdomen: Soft, mild epigastric tenderness without rebound or guarding, good bowel tones, no flank pain Skin: Pale, diaphoretic,, no rashes Neurologic: Grossly neurologically intact with no obvious asymmetries or abnormalities, hyper-reflexic without clonus Extremities: No trauma, well perfused Psych: Cooperative, appropriate insight and affect <Mtich Mcdonald MD - Last Filed: 10/01/21 23:54> Initial Vital Signs Initial Vital Signs: Vital Signs Respiratory Rate 28 H 09/30/21 08:24 Blood Pressure 147/81 H 09/30/21 08:24 Pulse Oximetry 98 09/30/21 08:24 <Talia Burnette DO - Last Filed: 10/01/21 11:02> Initial Vital Signs Initial Vital Signs: Vital Signs Respiratory Rate 28 H 09/30/21 08:24 Blood Pressure 147/81 H 09/30/21 08:24 Pulse Oximetry 98 09/30/21 08:24 Course <Shara Munson MD - Last Filed: 10/05/21 17:59> Orders Ordered: Discontinued Medications Diazepam (Diazepam 10 Mg/2 Ml Syringe) 5 mg IV NOW ONE Stop: 09/30/21 09:29 Last Admin: 09/30/21 09:54 Dose: 5 mg Documented By: MATT Diazepam (Diazepam 10 Mg/2 Ml Syringe) 5 mg IV NOW ONE Stop: 09/30/21 17:28 Last Admin: 09/30/21 17:32 Dose: 5 mg Documented By: FLAVIA Diphenhydramine HCl (Diphenhydramine 50 Mg/Ml Vial) 25 mg IV NOW ONE Stop: 09/30/21 08:33 Last Admin: 09/30/21 08:55 Dose: 25 mg Documented By: MATT Haloperidol (Haloperidol 5 Mg/Ml Vial) 2 mg IV NOW ONE Stop: 09/30/21 15:47 Last Admin: 09/30/21 17:05 Dose: 2 mg Documented By: FLAVIA Hydromorphone HCl (Hydromorphone 0.5 Mg Inj) 0.5 mg IV NOW ONE Stop: 09/30/21 09:29 Last Admin: 09/30/21 09:49 Dose: 0.5 mg Documented By: MATT Hydromorphone HCl (Hydromorphone 0.5 Mg Inj) 0.5 mg IV Q15MIN PRN PRN Reason: Pain, Last Admin: 09/30/21 15:40 Dose: 0.5 mg Documented By: Admin: 09/30/21 14:45 Dose: 0.5 mg Documented By: Admin: 09/30/21 14:09 Dose: 0.5 mg Documented By: FLAVIA Hydromorphone HCl (Hydromorphone 0.5 Mg Inj) 0.5 mg IV Q15MIN PRN PRN Reason: Pain, Sodium Chloride (Normal Saline 0.9%) 1,000 mls @ 1,000 mls/hr IV BOLUS ONE Stop: 09/30/21 09:31 Last Infusion: 09/30/21 09:59 Dose: 0 mls/hr Documented By: Admin: 09/30/21 08:58 Dose: 1,000 mls/hr Documented By: MATT Sodium Chloride (Normal Saline 0.9%) 1,000 mls @ 1,000 mls/hr IV BOLUS ONE Stop: 09/30/21 09:31 Last Infusion: 09/30/21 11:52 Dose: 0 mls/hr Documented By: Admin: 09/30/21 09:53 Dose: 1,000 mls/hr Documented By: MATT Levetiracetam 1,000 mg/ Sodium (Chloride) 110 mls @ 440 mls/hr IV NOW ONE Stop: 09/30/21 08:33 Last Infusion: 09/30/21 09:48 Dose: 0 mls/hr Documented By: Admin: 09/30/21 08:55 Dose: 440 mls/hr Documented By: MATT Sodium Chloride (Normal Saline 0.9%) 1,000 mls @ 1,000 mls/hr IV BOLUS ONE Stop: 09/30/21 12:51 Last Infusion: 09/30/21 15:37 Dose: 0 mls/hr Documented By: Admin: 09/30/21 12:11 Dose: 1,000 mls/hr Documented By: MATT Sodium Chloride (Normal Saline 0.9%) 1,000 mls @ 150 mls/hr IV CONT MIR Last Infusion: 09/30/21 18:06 Dose: 0 mls/hr Documented By: Admin: 09/30/21 12:10 Dose: 150 mls/hr Documented By: MATT Piperacillin Sod/Tazobactam (Sod 4.5 gm/ Sodium Chloride) 100 mls @ 200 mls/hr IV NOW ONE Stop: 09/30/21 11:53 Last Infusion: 09/30/21 13:18 Dose: 0 mls/hr Documented By: AMSandie Admin: 09/30/21 12:10 Dose: 200 mls/hr Documented By: MATT Sodium Chloride (Normal Saline 0.9%) 1,000 mls @ 150 mls/hr IV CONT MIR Last Admin: 09/30/21 16:22 Dose: Not Given Documented By: FLAIVA Levetiracetam 500 mg/ Sodium (Chloride) 105 mls @ 420 mls/hr IV NOW ONE Stop: 09/30/21 16:24 Last Admin: 09/30/21 16:52 Dose: Not Given Documented By: FLAVIA Levetiracetam 500 mg/ Sodium (Chloride) 105 mls @ 420 mls/hr IV NOW ONE Stop: 09/30/21 16:52 Last Infusion: 09/30/21 17:20 Dose: 0 mls/hr Documented By: Admin: 09/30/21 17:05 Dose: 420 mls/hr Documented By: FLAVIA Levetiracetam 500 mg/ Sodium (Chloride) 105 mls @ 420 mls/hr IV NOW ONE Stop: 09/30/21 21:19 Last Admin: 09/30/21 21:30 Dose: Not Given Documented By: FLAVIA Levetiracetam (Levetiracetam 250 Mg Tablet) 500 mg PO NOW ONE Stop: 10/01/21 08:13 Last Admin: 10/01/21 10:21 Dose: Not Given Documented By: SHADIA Levetiracetam (Levetiracetam 250 Mg Tablet) 1,000 mg PO NOW ONE Stop: 10/01/21 10:22 Last Admin: 10/01/21 10:33 Dose: 1,000 mg Documented By: SHADIA Midazolam HCl (Midazolam 2 Mg/2 Ml Vial) 2 mg IV NOW ONE Stop: 09/30/21 16:16 Last Admin: 09/30/21 16:21 Dose: Not Given Documented By: FLAVIA Ondansetron HCl (Ondansetron 4 Mg/2 Ml Inj) 4 mg IV NOW ONE Stop: 09/30/21 08:34 Last Admin: 09/30/21 08:55 Dose: 4 mg Documented By: MATT Ondansetron HCl (Ondansetron 4 Mg/2 Ml Inj) 4 mg IV NOW ONE Stop: 09/30/21 15:31 Last Admin: 09/30/21 15:40 Dose: 4 mg Documented By: FLAVIA Ondansetron HCl (Ondansetron 4 Mg/2 Ml Inj) 4 mg IV NOW ONE Stop: 10/01/21 08:08 Last Admin: 10/01/21 08:59 Dose: 4 mg Documented By: MYCHAL Oxycodone/Acetaminophen (Oxycodone/Acetaminophen 5/325 Tablet) 2 tab PO NOW ONE Stop: 09/30/21 15:31 Last Admin: 09/30/21 16:06 Dose: Not Given Documented By: FLAVIA Pantoprazole Sodium (Pantoprazole 40 Mg Vial) 80 mg IV NOW ONE Stop: 09/30/21 09:29 Last Admin: 09/30/21 11:22 Dose: 80 mg Documented By: MATT Pantoprazole Sodium (Pantoprazole 40 Mg Vial) 40 mg IV NOW ONE Stop: 10/01/21 08:08 Last Admin: 10/01/21 09:00 Dose: 40 mg Documented By: MYCHAL Promethazine HCl (Promethazine 25 Mg Supp) 25 mg NM NOW ONE Stop: 09/30/21 21:32 Last Admin: 09/30/21 21:43 Dose: 25 mg Documented By: FLAVIA Trazodone HCl (Trazodone 100 Mg Tablet) 100 mg PO BEDTIME MIR Trazodone HCl (Trazodone 100 Mg Tablet) 100 mg PO NOW ONE Stop: 10/01/21 01:27 Last Admin: 10/01/21 01:47 Dose: 100 mg Documented By: CHARITO Vital Signs Vital signs: Vital Signs - 8 hr 10/01/21 05:00 10/01/21 05:00 10/01/21 05:30 Pulse Rate 61 65 Respiratory Rate Blood Pressure 121/67 Pulse Oximetry 95 97 Oxygen Delivery Method 10/01/21 06:00 10/01/21 06:00 10/01/21 06:30 Pulse Rate 71 63 Respiratory Rate Blood Pressure 104/55 L Pulse Oximetry 99 98 Oxygen Delivery Method 10/01/21 07:00 10/01/21 07:00 10/01/21 07:30 Pulse Rate 62 80 Respiratory Rate Blood Pressure 96/55 L Pulse Oximetry 98 100 Oxygen Delivery Method 10/01/21 07:43 10/01/21 08:00 10/01/21 08:50 Pulse Rate 77 80 88 Respiratory Rate 18 Blood Pressure Pulse Oximetry 99 Oxygen Delivery Method 10/01/21 08:51 10/01/21 08:51 10/01/21 09:00 Pulse Rate 91 H 100 H Respiratory Rate Blood Pressure 100/63 Pulse Oximetry Oxygen Delivery Method 10/01/21 09:30 10/01/21 10:00 Pulse Rate 88 90 Respiratory Rate 18 Blood Pressure Pulse Oximetry 99 Oxygen Delivery Method Room Air <Mitch Mcdonald MD - Last Filed: 10/01/21 23:54> Course Course Narrative: 7:00 p.m.. Sign-out from Dr. Chery. Patient is on waiting list for transfer for intractable vomiting/seizure/needs neurology/EEG. May need repeat Keppra IV. Patient did receive Keppra IV here 500 mg 7:10 p.m.. Spoke with patient and partner at bedside. Patient in no distress. Patient states has epilepsy since 4 years of age. Is on Keppra. Unable take his medicines for seizure due to nausea and vomiting. They do understand need for transfer. I did speak with [facility] and they will be calling back for more information for possible receiving patient October 01, 2021 at 7:00 a.m. s/o dr burnette, patient on waiting list for transfer. As intractable vomiting. Also has had repeat seizures. Orders Ordered: Discontinued Medications Diazepam (Diazepam 10 Mg/2 Ml Syringe) 5 mg IV NOW ONE Stop: 09/30/21 09:29 Last Admin: 09/30/21 09:54 Dose: 5 mg Documented By: MATT Diazepam (Diazepam 10 Mg/2 Ml Syringe) 5 mg IV NOW ONE Stop: 09/30/21 17:28 Last Admin: 09/30/21 17:32 Dose: 5 mg Documented By: FLAVIA Diphenhydramine HCl (Diphenhydramine 50 Mg/Ml Vial) 25 mg IV NOW ONE Stop: 09/30/21 08:33 Last Admin: 09/30/21 08:55 Dose: 25 mg Documented By: MATT Haloperidol (Haloperidol 5 Mg/Ml Vial) 2 mg IV NOW ONE Stop: 09/30/21 15:47 Last Admin: 09/30/21 17:05 Dose: 2 mg Documented By: FLAVIA Hydromorphone HCl (Hydromorphone 0.5 Mg Inj) 0.5 mg IV NOW ONE Stop: 09/30/21 09:29 Last Admin: 09/30/21 09:49 Dose: 0.5 mg Documented By: MATT Hydromorphone HCl (Hydromorphone 0.5 Mg Inj) 0.5 mg IV Q15MIN PRN PRN Reason: Pain, Last Admin: 09/30/21 15:40 Dose: 0.5 mg Documented By: Admin: 09/30/21 14:45 Dose: 0.5 mg Documented By: Admin: 09/30/21 14:09 Dose: 0.5 mg Documented By: FLAVIA Hydromorphone HCl (Hydromorphone 0.5 Mg Inj) 0.5 mg IV Q15MIN PRN PRN Reason: Pain, Sodium Chloride (Normal Saline 0.9%) 1,000 mls @ 1,000 mls/hr IV BOLUS ONE Stop: 09/30/21 09:31 Last Infusion: 09/30/21 09:59 Dose: 0 mls/hr Documented By: Admin: 09/30/21 08:58 Dose: 1,000 mls/hr Documented By: MATT Sodium Chloride (Normal Saline 0.9%) 1,000 mls @ 1,000 mls/hr IV BOLUS ONE Stop: 09/30/21 09:31 Last Infusion: 09/30/21 11:52 Dose: 0 mls/hr Documented By: Admin: 09/30/21 09:53 Dose: 1,000 mls/hr Documented By: MATT Levetiracetam 1,000 mg/ Sodium (Chloride) 110 mls @ 440 mls/hr IV NOW ONE Stop: 09/30/21 08:33 Last Infusion: 09/30/21 09:48 Dose: 0 mls/hr Documented By: Admin: 09/30/21 08:55 Dose: 440 mls/hr Documented By: MATT Sodium Chloride (Normal Saline 0.9%) 1,000 mls @ 1,000 mls/hr IV BOLUS ONE Stop: 09/30/21 12:51 Last Infusion: 09/30/21 15:37 Dose: 0 mls/hr Documented By: Admin: 09/30/21 12:11 Dose: 1,000 mls/hr Documented By: MATT Sodium Chloride (Normal Saline 0.9%) 1,000 mls @ 150 mls/hr IV CONT MIR Last Infusion: 09/30/21 18:06 Dose: 0 mls/hr Documented By: Admin: 09/30/21 12:10 Dose: 150 mls/hr Documented By: MATT Piperacillin Sod/Tazobactam (Sod 4.5 gm/ Sodium Chloride) 100 mls @ 200 mls/hr IV NOW ONE Stop: 09/30/21 11:53 Last Infusion: 09/30/21 13:18 Dose: 0 mls/hr Documented By: Admin: 09/30/21 12:10 Dose: 200 mls/hr Documented By: MATT Sodium Chloride (Normal Saline 0.9%) 1,000 mls @ 150 mls/hr IV CONT MIR Last Admin: 09/30/21 16:22 Dose: Not Given Documented By: FLAVIA Levetiracetam 500 mg/ Sodium (Chloride) 105 mls @ 420 mls/hr IV NOW ONE Stop: 09/30/21 16:24 Last Admin: 09/30/21 16:52 Dose: Not Given Documented By: FLAVIA Levetiracetam 500 mg/ Sodium (Chloride) 105 mls @ 420 mls/hr IV NOW ONE Stop: 09/30/21 16:52 Last Infusion: 09/30/21 17:20 Dose: 0 mls/hr Documented By: Admin: 09/30/21 17:05 Dose: 420 mls/hr Documented By: FLAVIA Levetiracetam 500 mg/ Sodium (Chloride) 105 mls @ 420 mls/hr IV NOW ONE Stop: 09/30/21 21:19 Last Admin: 09/30/21 21:30 Dose: Not Given Documented By: FLAVIA Levetiracetam (Levetiracetam 250 Mg Tablet) 500 mg PO NOW ONE Stop: 10/01/21 08:13 Last Admin: 10/01/21 10:21 Dose: Not Given Documented By: SHADIA Levetiracetam (Levetiracetam 250 Mg Tablet) 1,000 mg PO NOW ONE Stop: 10/01/21 10:22 Last Admin: 10/01/21 10:33 Dose: 1,000 mg Documented By: SHADIA Midazolam HCl (Midazolam 2 Mg/2 Ml Vial) 2 mg IV NOW ONE Stop: 09/30/21 16:16 Last Admin: 09/30/21 16:21 Dose: Not Given Documented By: FLAVIA Ondansetron HCl (Ondansetron 4 Mg/2 Ml Inj) 4 mg IV NOW ONE Stop: 09/30/21 08:34 Last Admin: 09/30/21 08:55 Dose: 4 mg Documented By: MATT Ondansetron HCl (Ondansetron 4 Mg/2 Ml Inj) 4 mg IV NOW ONE Stop: 09/30/21 15:31 Last Admin: 09/30/21 15:40 Dose: 4 mg Documented By: FLAVIA Ondansetron HCl (Ondansetron 4 Mg/2 Ml Inj) 4 mg IV NOW ONE Stop: 10/01/21 08:08 Last Admin: 10/01/21 08:59 Dose: 4 mg Documented By: MYCHAL Oxycodone/Acetaminophen (Oxycodone/Acetaminophen 5/325 Tablet) 2 tab PO NOW ONE Stop: 09/30/21 15:31 Last Admin: 09/30/21 16:06 Dose: Not Given Documented By: FLAVIA Pantoprazole Sodium (Pantoprazole 40 Mg Vial) 80 mg IV NOW ONE Stop: 09/30/21 09:29 Last Admin: 09/30/21 11:22 Dose: 80 mg Documented By: MATT Pantoprazole Sodium (Pantoprazole 40 Mg Vial) 40 mg IV NOW ONE Stop: 10/01/21 08:08 Last Admin: 10/01/21 09:00 Dose: 40 mg Documented By: MYCHAL Promethazine HCl (Promethazine 25 Mg Supp) 25 mg NM NOW ONE Stop: 09/30/21 21:32 Last Admin: 09/30/21 21:43 Dose: 25 mg Documented By: FLAVIA Trazodone HCl (Trazodone 100 Mg Tablet) 100 mg PO BEDTIME MIR Trazodone HCl (Trazodone 100 Mg Tablet) 100 mg PO NOW ONE Stop: 10/01/21 01:27 Last Admin: 10/01/21 01:47 Dose: 100 mg Documented By: CHARITO Vital Signs Vital signs: Vital Signs - 8 hr 10/01/21 05:00 10/01/21 05:00 10/01/21 05:30 Pulse Rate 61 65 Respiratory Rate Blood Pressure 121/67 Pulse Oximetry 95 97 Oxygen Delivery Method 10/01/21 06:00 10/01/21 06:00 10/01/21 06:30 Pulse Rate 71 63 Respiratory Rate Blood Pressure 104/55 L Pulse Oximetry 99 98 Oxygen Delivery Method 10/01/21 07:00 10/01/21 07:00 10/01/21 07:30 Pulse Rate 62 80 Respiratory Rate Blood Pressure 96/55 L Pulse Oximetry 98 100 Oxygen Delivery Method 10/01/21 07:43 10/01/21 08:00 10/01/21 08:50 Pulse Rate 77 80 88 Respiratory Rate 18 Blood Pressure Pulse Oximetry 99 Oxygen Delivery Method 10/01/21 08:51 10/01/21 08:51 10/01/21 09:00 Pulse Rate 91 H 100 H Respiratory Rate Blood Pressure 100/63 Pulse Oximetry Oxygen Delivery Method 10/01/21 09:30 10/01/21 10:00 Pulse Rate 88 90 Respiratory Rate 18 Blood Pressure Pulse Oximetry 99 Oxygen Delivery Method Room Air <Talia Burnette DO - Last Filed: 10/01/21 11:02> Orders Ordered: Discontinued Medications Diazepam (Diazepam 10 Mg/2 Ml Syringe) 5 mg IV NOW ONE Stop: 09/30/21 09:29 Last Admin: 09/30/21 09:54 Dose: 5 mg Documented By: MATT Diazepam (Diazepam 10 Mg/2 Ml Syringe) 5 mg IV NOW ONE Stop: 09/30/21 17:28 Last Admin: 09/30/21 17:32 Dose: 5 mg Documented By: FLAVIA Diphenhydramine HCl (Diphenhydramine 50 Mg/Ml Vial) 25 mg IV NOW ONE Stop: 09/30/21 08:33 Last Admin: 09/30/21 08:55 Dose: 25 mg Documented By: MATT Haloperidol (Haloperidol 5 Mg/Ml Vial) 2 mg IV NOW ONE Stop: 09/30/21 15:47 Last Admin: 09/30/21 17:05 Dose: 2 mg Documented By: FLAVIA Hydromorphone HCl (Hydromorphone 0.5 Mg Inj) 0.5 mg IV NOW ONE Stop: 09/30/21 09:29 Last Admin: 09/30/21 09:49 Dose: 0.5 mg Documented By: MATT Hydromorphone HCl (Hydromorphone 0.5 Mg Inj) 0.5 mg IV Q15MIN PRN PRN Reason: Pain, Last Admin: 09/30/21 15:40 Dose: 0.5 mg Documented By: Admin: 09/30/21 14:45 Dose: 0.5 mg Documented By: Admin: 09/30/21 14:09 Dose: 0.5 mg Documented By: FLAVIA Hydromorphone HCl (Hydromorphone 0.5 Mg Inj) 0.5 mg IV Q15MIN PRN PRN Reason: Pain, Sodium Chloride (Normal Saline 0.9%) 1,000 mls @ 1,000 mls/hr IV BOLUS ONE Stop: 09/30/21 09:31 Last Infusion: 09/30/21 09:59 Dose: 0 mls/hr Documented By: Admin: 09/30/21 08:58 Dose: 1,000 mls/hr Documented By: MATT Sodium Chloride (Normal Saline 0.9%) 1,000 mls @ 1,000 mls/hr IV BOLUS ONE Stop: 09/30/21 09:31 Last Infusion: 09/30/21 11:52 Dose: 0 mls/hr Documented By: Admin: 09/30/21 09:53 Dose: 1,000 mls/hr Documented By: MATT Levetiracetam 1,000 mg/ Sodium (Chloride) 110 mls @ 440 mls/hr IV NOW ONE Stop: 09/30/21 08:33 Last Infusion: 09/30/21 09:48 Dose: 0 mls/hr Documented By: Admin: 09/30/21 08:55 Dose: 440 mls/hr Documented By: MATT Sodium Chloride (Normal Saline 0.9%) 1,000 mls @ 1,000 mls/hr IV BOLUS ONE Stop: 09/30/21 12:51 Last Infusion: 09/30/21 15:37 Dose: 0 mls/hr Documented By: Admin: 09/30/21 12:11 Dose: 1,000 mls/hr Documented By: MATT Sodium Chloride (Normal Saline 0.9%) 1,000 mls @ 150 mls/hr IV CONT MIR Last Infusion: 09/30/21 18:06 Dose: 0 mls/hr Documented By: Admin: 09/30/21 12:10 Dose: 150 mls/hr Documented By: MATT Piperacillin Sod/Tazobactam (Sod 4.5 gm/ Sodium Chloride) 100 mls @ 200 mls/hr IV NOW ONE Stop: 09/30/21 11:53 Last Infusion: 09/30/21 13:18 Dose: 0 mls/hr Documented By: AMSandie Admin: 09/30/21 12:10 Dose: 200 mls/hr Documented By: MATT Sodium Chloride (Normal Saline 0.9%) 1,000 mls @ 150 mls/hr IV CONT MIR Last Admin: 09/30/21 16:22 Dose: Not Given Documented By: FLAVIA Levetiracetam 500 mg/ Sodium (Chloride) 105 mls @ 420 mls/hr IV NOW ONE Stop: 09/30/21 16:24 Last Admin: 09/30/21 16:52 Dose: Not Given Documented By: FLAVIA Levetiracetam 500 mg/ Sodium (Chloride) 105 mls @ 420 mls/hr IV NOW ONE Stop: 09/30/21 16:52 Last Infusion: 09/30/21 17:20 Dose: 0 mls/hr Documented By: Admin: 09/30/21 17:05 Dose: 420 mls/hr Documented By: FLAVIA Levetiracetam 500 mg/ Sodium (Chloride) 105 mls @ 420 mls/hr IV NOW ONE Stop: 09/30/21 21:19 Last Admin: 09/30/21 21:30 Dose: Not Given Documented By: FLAVIA Levetiracetam (Levetiracetam 250 Mg Tablet) 500 mg PO NOW ONE Stop: 10/01/21 08:13 Last Admin: 10/01/21 10:21 Dose: Not Given Documented By: SHADIA Levetiracetam (Levetiracetam 250 Mg Tablet) 1,000 mg PO NOW ONE Stop: 10/01/21 10:22 Last Admin: 10/01/21 10:33 Dose: 1,000 mg Documented By: SHADIA Midazolam HCl (Midazolam 2 Mg/2 Ml Vial) 2 mg IV NOW ONE Stop: 09/30/21 16:16 Last Admin: 09/30/21 16:21 Dose: Not Given Documented By: FLAVIA Ondansetron HCl (Ondansetron 4 Mg/2 Ml Inj) 4 mg IV NOW ONE Stop: 09/30/21 08:34 Last Admin: 09/30/21 08:55 Dose: 4 mg Documented By: MATT Ondansetron HCl (Ondansetron 4 Mg/2 Ml Inj) 4 mg IV NOW ONE Stop: 09/30/21 15:31 Last Admin: 09/30/21 15:40 Dose: 4 mg Documented By: FLAVIA Ondansetron HCl (Ondansetron 4 Mg/2 Ml Inj) 4 mg IV NOW ONE Stop: 10/01/21 08:08 Last Admin: 10/01/21 08:59 Dose: 4 mg Documented By: MYCHAL Oxycodone/Acetaminophen (Oxycodone/Acetaminophen 5/325 Tablet) 2 tab PO NOW ONE Stop: 09/30/21 15:31 Last Admin: 09/30/21 16:06 Dose: Not Given Documented By: FLAVIA Pantoprazole Sodium (Pantoprazole 40 Mg Vial) 80 mg IV NOW ONE Stop: 09/30/21 09:29 Last Admin: 09/30/21 11:22 Dose: 80 mg Documented By: MATT Pantoprazole Sodium (Pantoprazole 40 Mg Vial) 40 mg IV NOW ONE Stop: 10/01/21 08:08 Last Admin: 10/01/21 09:00 Dose: 40 mg Documented By: MYCHAL Promethazine HCl (Promethazine 25 Mg Supp) 25 mg NM NOW ONE Stop: 09/30/21 21:32 Last Admin: 09/30/21 21:43 Dose: 25 mg Documented By: FLAVIA Trazodone HCl (Trazodone 100 Mg Tablet) 100 mg PO BEDTIME MIR Trazodone HCl (Trazodone 100 Mg Tablet) 100 mg PO NOW ONE Stop: 10/01/21 01:27 Last Admin: 10/01/21 01:47 Dose: 100 mg Documented By: CHARITO Vital Signs Vital signs: Vital Signs - 8 hr 10/01/21 05:00 10/01/21 05:00 10/01/21 05:30 Pulse Rate 61 65 Respiratory Rate Blood Pressure 121/67 Pulse Oximetry 95 97 Oxygen Delivery Method 10/01/21 06:00 10/01/21 06:00 10/01/21 06:30 Pulse Rate 71 63 Respiratory Rate Blood Pressure 104/55 L Pulse Oximetry 99 98 Oxygen Delivery Method 10/01/21 07:00 10/01/21 07:00 10/01/21 07:30 Pulse Rate 62 80 Respiratory Rate Blood Pressure 96/55 L Pulse Oximetry 98 100 Oxygen Delivery Method 10/01/21 07:43 10/01/21 08:00 10/01/21 08:50 Pulse Rate 77 80 88 Respiratory Rate 18 Blood Pressure Pulse Oximetry 99 Oxygen Delivery Method 10/01/21 08:51 10/01/21 08:51 10/01/21 09:00 Pulse Rate 91 H 100 H Respiratory Rate Blood Pressure 100/63 Pulse Oximetry Oxygen Delivery Method 10/01/21 09:30 10/01/21 10:00 Pulse Rate 88 90 Respiratory Rate 18 Blood Pressure Pulse Oximetry 99 Oxygen Delivery Method Room Air Medical Decision Making <Shara Munson MD - Last Filed: 10/05/21 17:59> Lab Data Result diagrams: 09/30/21 15:52 09/30/21 08:40 Labs: Lab Results 09/30/21 09/30/21 09/30/21 Range/Units 08:30 08:40 08:40 WBC 23.1 H (4.5-11.0) X10^3/uL RBC 5.05 (4.0-5.2) X10^6/uL Hgb 13.4 (12.0-16.0) g/dL Hct 39.4 (36-46) % MCV 78.1 L (80-100) fL MCH 26.6 (26-34) PG MCHC 34.0 (30-36) % RDW 15.4 H (11.6-14.8) % Plt Count 492 H (150-400) X10^3/uL Neut % (Auto) 89.9 H (50-75) % Lymph % (Auto) 6.0 L (25-40) % [place] % (Auto) 3.3 (3-14) % Eos % (Auto) 0.6 L (2-4) % Baso % (Auto) 0.2 (0-2) % Neut # (Auto) 10357 H (2328-8279) /uL Lymph # (Auto) 1400 (6259-0378) /uL [place] # (Auto) 800 (0-900) /uL Eos # (Auto) 100 (0-450) /uL Baso # (Auto) 0 (0-100) /uL Sodium 137 (137-145) mmol/L Potassium 4.4 (3.4-5.1) mmol/L Chloride 98 (98-107) mmol/L Carbon Dioxide 23 (22-32) mmol/L BUN 12 (7-17) mg/dL Creatinine 0.71 (0.52-1.04) mg/dL Estimated GFR > 60 (>60) mL/min BUN/Creatinine Ratio 16.9 (6-22) Glucose 126 H (70-100) mg/dL Lactate 4.0 H (0.7-2.1) mmol/L Calcium 9.6 (8.4-10.2) mg/dL Magnesium 1.6 (1.6-2.3) mg/dL Total Bilirubin 0.7 (0.2-1.3) mg/dL AST 30 (14-36) IU/L ALT 20 (<35) IU/L Alkaline Phosphatase 130 H (38-126) U/L Total Protein 9.5 H (6.3-8.2) g/dL Albumin 5.0 (3.5-5.0) g/dL Globulin 4.5 H (1.7-4.1) g/dL Albumin/Globulin Ratio 1.1 (1.0-2.8) Lipase 109 (23-300) U/L Urine RBC (0-5/HPF) Urine WBC (0-5/HPF) Ur Squamous Epith Cells (0-5/HPF) Urine Bacteria (None) Ur Culture Indicated? U Opiates 300ng/mL cut (Negative) Ur Oxycodone Screen (Negative) Urine Methadone Screen (Negative) Ur Barbiturates Screen (Negative) U Tricyclic Antidepress (Negative) Ur Phencyclidine Scrn (Negative) Ur Amphetamines Screen (Negative) U Methamphetamines Scrn (Negative) Ur MDMA Scrn (Ecstasy) (Negative) U Benzodiazepines Scrn (Negative) Urine Cocaine Screen (Negative) U Marijuana (THC) Screen (Negative) SARS-CoV-2 (PCR) (Negative) 09/30/21 09/30/21 09/30/21 Range/Units 09:05 11:24 12:02 WBC (4.5-11.0) X10^3/uL RBC (4.0-5.2) X10^6/uL Hgb (12.0-16.0) g/dL Hct (36-46) % MCV (80-100) fL MCH (26-34) PG MCHC (30-36) % RDW (11.6-14.8) % Plt Count (150-400) X10^3/uL Neut % (Auto) (50-75) % Lymph % (Auto) (25-40) % [place] % (Auto) (3-14) % Eos % (Auto) (2-4) % Baso % (Auto) (0-2) % Neut # (Auto) (1547-0679) /uL Lymph # (Auto) (7622-6473) /uL [place] # (Auto) (0-900) /uL Eos # (Auto) (0-450) /uL Baso # (Auto) (0-100) /uL Sodium (137-145) mmol/L Potassium (3.4-5.1) mmol/L Chloride (98-107) mmol/L Carbon Dioxide (22-32) mmol/L BUN (7-17) mg/dL Creatinine (0.52-1.04) mg/dL Estimated GFR (>60) mL/min BUN/Creatinine Ratio (6-22) Glucose (70-100) mg/dL Lactate 0.8 (0.7-2.1) mmol/L Calcium (8.4-10.2) mg/dL Magnesium (1.6-2.3) mg/dL Total Bilirubin (0.2-1.3) mg/dL AST (14-36) IU/L ALT (<35) IU/L Alkaline Phosphatase (38-126) U/L Total Protein (6.3-8.2) g/dL Albumin (3.5-5.0) g/dL Globulin (1.7-4.1) g/dL Albumin/Globulin Ratio (1.0-2.8) Lipase (23-300) U/L Urine RBC (0-5/HPF) Urine WBC (0-5/HPF) Ur Squamous Epith Cells (0-5/HPF) Urine Bacteria (None) Ur Culture Indicated? U Opiates 300ng/mL cut Negative (Negative) Ur Oxycodone Screen Negative (Negative) Urine Methadone Screen Negative (Negative) Ur Barbiturates Screen Negative (Negative) U Tricyclic Antidepress Negative (Negative) Ur Phencyclidine Scrn Negative (Negative) Ur Amphetamines Screen Negative (Negative) U Methamphetamines Scrn Negative (Negative) Ur MDMA Scrn (Ecstasy) Negative (Negative) U Benzodiazepines Scrn Negative (Negative) Urine Cocaine Screen Negative (Negative) U Marijuana (THC) Screen Positive H (Negative) SARS-CoV-2 (PCR) Negative (Negative) 09/30/21 09/30/21 Range/Units 12:02 15:52 WBC 16.6 H (4.5-11.0) X10^3/uL RBC 4.43 (4.0-5.2) X10^6/uL Hgb 11.7 L (12.0-16.0) g/dL Hct 34.5 L (36-46) % MCV 78.0 L (80-100) fL MCH 26.4 (26-34) PG MCHC 33.8 (30-36) % RDW 15.8 H (11.6-14.8) % Plt Count 448 H (150-400) X10^3/uL Neut % (Auto) 79.0 H (50-75) % Lymph % (Auto) 15.3 L (25-40) % [place] % (Auto) 5.2 (3-14) % Eos % (Auto) 0.3 L (2-4) % Baso % (Auto) 0.2 (0-2) % Neut # (Auto) 38160 H (4095-9776) /uL Lymph # (Auto) 2500 (3227-1736) /uL [place] # (Auto) 900 (0-900) /uL Eos # (Auto) 100 (0-450) /uL Baso # (Auto) 0 (0-100) /uL Sodium (137-145) mmol/L Potassium (3.4-5.1) mmol/L Chloride (98-107) mmol/L Carbon Dioxide (22-32) mmol/L BUN (7-17) mg/dL Creatinine (0.52-1.04) mg/dL Estimated GFR (>60) mL/min BUN/Creatinine Ratio (6-22) Glucose (70-100) mg/dL Lactate (0.7-2.1) mmol/L Calcium (8.4-10.2) mg/dL Magnesium (1.6-2.3) mg/dL Total Bilirubin (0.2-1.3) mg/dL AST (14-36) IU/L ALT (<35) IU/L Alkaline Phosphatase (38-126) U/L Total Protein (6.3-8.2) g/dL Albumin (3.5-5.0) g/dL Globulin (1.7-4.1) g/dL Albumin/Globulin Ratio (1.0-2.8) Lipase (23-300) U/L Urine RBC 0-1/hpf (0-5/HPF) Urine WBC 0-1/hpf (0-5/HPF) Ur Squamous Epith Cells 5-10 /hpf H (0-5/HPF) Urine Bacteria Few (2-10) H (None) Ur Culture Indicated? Cult not indicated U Opiates 300ng/mL cut (Negative) Ur Oxycodone Screen (Negative) Urine Methadone Screen (Negative) Ur Barbiturates Screen (Negative) U Tricyclic Antidepress (Negative) Ur Phencyclidine Scrn (Negative) Ur Amphetamines Screen (Negative) U Methamphetamines Scrn (Negative) Ur MDMA Scrn (Ecstasy) (Negative) U Benzodiazepines Scrn (Negative) Urine Cocaine Screen (Negative) U Marijuana (THC) Screen (Negative) SARS-CoV-2 (PCR) (Negative) Point of Care Testing Test Results Negative Urine Dip Bedside Urine Glucose Negative Bedside Urine Bilirubin - Negative Bedside Urine Ketone +++ 80 Urine Specific [place] 1.015 Bedside Urine Occult Blood - Negative Bedside Urine pH 6.0 Bedside Urine Protein +/- 15 Bedside Urine Urobilinogen - Negative Bedside Urine Nitrite - Negative Bedside Urine Leukocytes - Negative Esterase Point of care testing: Point of Care Testing Test Results Negative Urine Dip Bedside Urine Glucose Negative Bedside Urine Bilirubin - Negative Bedside Urine Ketone +++ 80 Urine Specific [place] 1.015 Bedside Urine Occult Blood - Negative Bedside Urine pH 6.0 Bedside Urine Protein +/- 15 Bedside Urine Urobilinogen - Negative Bedside Urine Nitrite - Negative Bedside Urine Leukocytes - Negative Esterase Imaging Data Chest x-ray: Radiologist's Impression: FINDINGS:? ? Surgical changes and devices:? None.? ? Lungs and pleura:? Lungs are clear.? No pleural effusions or pneumothorax.? ? Mediastinum:? Mediastinal contours appear normal.? Heart size is normal.? ? Bones and chest wall:? No suspicious bony lesions.? Overlying soft tissues appear unremarkable.? ? IMPRESSION:? No acute cardiopulmonary pathology. ? ? Dictated by: García Albrecht M.D. on 09/30/2021 at 11:19 ? ? ECG Data Interpretation: Sinus tach at 111 poor baseline No acute ischemic changes MDM Narrative Medical decision making narrative: 21-year-old woman presents with nausea significant vomiting, abdominal pain with prior episodes of similar. She is not able to keep seizure medications or anxiety medications down. I suspect there is small component of benzodiazepine withdrawal as well as significant dehydration. She does not look like she has a urinary tract infection, nausea has been controlled with Zofran. Chest x-ray does not suggest infection. With prior episodes of significant hyperemesis she has had associated leukocytosis that has not turned out to be infectious in etiology and likely is deep margination secondary to the intensity of her vomiting. Lactic is elevated which could be simply dehydration from the vomiting. Blood cultures are pending. With her reported home fevers and chills, will begin antibiotics and moved to CT scan of the abdomen to look for other infectious source. CT scan returns unremarkable. Nausea is again increasing and with the mention of a p.o. challenge and water begins vomiting again. Troponin it came back down to normal with hydration, will repeat white blood cell count. At this point with persistent nausea and unexplained abdominal pain will recommend hospitalization for observation, treatment of the nausea and continued hydration. 4pm acute seizure like activity. 3 minutes intermittent tonic-clonic like activity with waxing and waning consciousness. Is maintaining airway. Repeats that she is confused is able to speak even with increased overall motor activity. She is given 2 mg of IV Versed with significant relief. Will load her with an additional 500 mg of Keppra, was only given a g this morning. Still complaining of abdominal pain, still vomiting. On further questioning she states that her primary care doctor has diagnosed her seizures and has started her on the clonazepam, lamotrigine and Keppra and she has not yet had confirmatory testing with a neurologist. 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 Current symptoms may be exacerbated by benzodiazepine withdrawal, she had been prescribed clonazepam 4 mg b.i.d. and it sounds like she has not had this for a couple of days due to the vomiting. She had been on higher doses of Xanax and over a 6 month period of time weaned off the Xanax completely. Reviewed her CT scan with her. The radiologist states that he clearly sees the appendix, its normal and she notes that she absolutely had appendicitis and has her appendix removed 620 reviewed with [facility] for available hospital beds currently none. Care transferred to Dr Mcdonald <Mitch Mcdonald MD - Last Filed: 10/01/21 23:54> Lab Data Labs: Lab Results 09/30/21 09/30/21 09/30/21 Range/Units 08:30 08:40 08:40 WBC 23.1 H (4.5-11.0) X10^3/uL RBC 5.05 (4.0-5.2) X10^6/uL Hgb 13.4 (12.0-16.0) g/dL Hct 39.4 (36-46) % MCV 78.1 L (80-100) fL MCH 26.6 (26-34) PG MCHC 34.0 (30-36) % RDW 15.4 H (11.6-14.8) % Plt Count 492 H (150-400) X10^3/uL Neut % (Auto) 89.9 H (50-75) % Lymph % (Auto) 6.0 L (25-40) % [place] % (Auto) 3.3 (3-14) % Eos % (Auto) 0.6 L (2-4) % Baso % (Auto) 0.2 (0-2) % Neut # (Auto) 53743 H (4589-0685) /uL Lymph # (Auto) 1400 (3882-9039) /uL [place] # (Auto) 800 (0-900) /uL Eos # (Auto) 100 (0-450) /uL Baso # (Auto) 0 (0-100) /uL Sodium 137 (137-145) mmol/L Potassium 4.4 (3.4-5.1) mmol/L Chloride 98 (98-107) mmol/L Carbon Dioxide 23 (22-32) mmol/L BUN 12 (7-17) mg/dL Creatinine 0.71 (0.52-1.04) mg/dL Estimated GFR > 60 (>60) mL/min BUN/Creatinine Ratio 16.9 (6-22) Glucose 126 H (70-100) mg/dL Lactate 4.0 H (0.7-2.1) mmol/L Calcium 9.6 (8.4-10.2) mg/dL Magnesium 1.6 (1.6-2.3) mg/dL Total Bilirubin 0.7 (0.2-1.3) mg/dL AST 30 (14-36) IU/L ALT 20 (<35) IU/L Alkaline Phosphatase 130 H (38-126) U/L Total Protein 9.5 H (6.3-8.2) g/dL Albumin 5.0 (3.5-5.0) g/dL Globulin 4.5 H (1.7-4.1) g/dL Albumin/Globulin Ratio 1.1 (1.0-2.8) Lipase 109 (23-300) U/L Urine RBC (0-5/HPF) Urine WBC (0-5/HPF) Ur Squamous Epith Cells (0-5/HPF) Urine Bacteria (None) Ur Culture Indicated? U Opiates 300ng/mL cut (Negative) Ur Oxycodone Screen (Negative) Urine Methadone Screen (Negative) Ur Barbiturates Screen (Negative) U Tricyclic Antidepress (Negative) Ur Phencyclidine Scrn (Negative) Ur Amphetamines Screen (Negative) U Methamphetamines Scrn (Negative) Ur MDMA Scrn (Ecstasy) (Negative) U Benzodiazepines Scrn (Negative) Urine Cocaine Screen (Negative) U Marijuana (THC) Screen (Negative) SARS-CoV-2 (PCR) (Negative) 09/30/21 09/30/21 09/30/21 Range/Units 09:05 11:24 12:02 WBC (4.5-11.0) X10^3/uL RBC (4.0-5.2) X10^6/uL Hgb (12.0-16.0) g/dL Hct (36-46) % MCV (80-100) fL MCH (26-34) PG MCHC (30-36) % RDW (11.6-14.8) % Plt Count (150-400) X10^3/uL Neut % (Auto) (50-75) % Lymph % (Auto) (25-40) % [place] % (Auto) (3-14) % Eos % (Auto) (2-4) % Baso % (Auto) (0-2) % Neut # (Auto) (9194-3995) /uL Lymph # (Auto) (1139-9519) /uL [place] # (Auto) (0-900) /uL Eos # (Auto) (0-450) /uL Baso # (Auto) (0-100) /uL Sodium (137-145) mmol/L Potassium (3.4-5.1) mmol/L Chloride (98-107) mmol/L Carbon Dioxide (22-32) mmol/L BUN (7-17) mg/dL Creatinine (0.52-1.04) mg/dL Estimated GFR (>60) mL/min BUN/Creatinine Ratio (6-22) Glucose (70-100) mg/dL Lactate 0.8 (0.7-2.1) mmol/L Calcium (8.4-10.2) mg/dL Magnesium (1.6-2.3) mg/dL Total Bilirubin (0.2-1.3) mg/dL AST (14-36) IU/L ALT (<35) IU/L Alkaline Phosphatase (38-126) U/L Total Protein (6.3-8.2) g/dL Albumin (3.5-5.0) g/dL Globulin (1.7-4.1) g/dL Albumin/Globulin Ratio (1.0-2.8) Lipase (23-300) U/L Urine RBC (0-5/HPF) Urine WBC (0-5/HPF) Ur Squamous Epith Cells (0-5/HPF) Urine Bacteria (None) Ur Culture Indicated? U Opiates 300ng/mL cut Negative (Negative) Ur Oxycodone Screen Negative (Negative) Urine Methadone Screen Negative (Negative) Ur Barbiturates Screen Negative (Negative) U Tricyclic Antidepress Negative (Negative) Ur Phencyclidine Scrn Negative (Negative) Ur Amphetamines Screen Negative (Negative) U Methamphetamines Scrn Negative (Negative) Ur MDMA Scrn (Ecstasy) Negative (Negative) U Benzodiazepines Scrn Negative (Negative) Urine Cocaine Screen Negative (Negative) U Marijuana (THC) Screen Positive H (Negative) SARS-CoV-2 (PCR) Negative (Negative) 09/30/21 09/30/21 Range/Units 12:02 15:52 WBC 16.6 H (4.5-11.0) X10^3/uL RBC 4.43 (4.0-5.2) X10^6/uL Hgb 11.7 L (12.0-16.0) g/dL Hct 34.5 L (36-46) % MCV 78.0 L (80-100) fL MCH 26.4 (26-34) PG MCHC 33.8 (30-36) % RDW 15.8 H (11.6-14.8) % Plt Count 448 H (150-400) X10^3/uL Neut % (Auto) 79.0 H (50-75) % Lymph % (Auto) 15.3 L (25-40) % [place] % (Auto) 5.2 (3-14) % Eos % (Auto) 0.3 L (2-4) % Baso % (Auto) 0.2 (0-2) % Neut # (Auto) 96923 H (1541-1478) /uL Lymph # (Auto) 2500 (7353-3946) /uL [place] # (Auto) 900 (0-900) /uL Eos # (Auto) 100 (0-450) /uL Baso # (Auto) 0 (0-100) /uL Sodium (137-145) mmol/L Potassium (3.4-5.1) mmol/L Chloride (98-107) mmol/L Carbon Dioxide (22-32) mmol/L BUN (7-17) mg/dL Creatinine (0.52-1.04) mg/dL Estimated GFR (>60) mL/min BUN/Creatinine Ratio (6-22) Glucose (70-100) mg/dL Lactate (0.7-2.1) mmol/L Calcium (8.4-10.2) mg/dL Magnesium (1.6-2.3) mg/dL Total Bilirubin (0.2-1.3) mg/dL AST (14-36) IU/L ALT (<35) IU/L Alkaline Phosphatase (38-126) U/L Total Protein (6.3-8.2) g/dL Albumin (3.5-5.0) g/dL Globulin (1.7-4.1) g/dL Albumin/Globulin Ratio (1.0-2.8) Lipase (23-300) U/L Urine RBC 0-1/hpf (0-5/HPF) Urine WBC 0-1/hpf (0-5/HPF) Ur Squamous Epith Cells 5-10 /hpf H (0-5/HPF) Urine Bacteria Few (2-10) H (None) Ur Culture Indicated? Cult not indicated U Opiates 300ng/mL cut (Negative) Ur Oxycodone Screen (Negative) Urine Methadone Screen (Negative) Ur Barbiturates Screen (Negative) U Tricyclic Antidepress (Negative) Ur Phencyclidine Scrn (Negative) Ur Amphetamines Screen (Negative) U Methamphetamines Scrn (Negative) Ur MDMA Scrn (Ecstasy) (Negative) U Benzodiazepines Scrn (Negative) Urine Cocaine Screen (Negative) U Marijuana (THC) Screen (Negative) SARS-CoV-2 (PCR) (Negative) Point of Care Testing Test Results Negative Urine Dip Bedside Urine Glucose Negative Bedside Urine Bilirubin - Negative Bedside Urine Ketone +++ 80 Urine Specific [place] 1.015 Bedside Urine Occult Blood - Negative Bedside Urine pH 6.0 Bedside Urine Protein +/- 15 Bedside Urine Urobilinogen - Negative Bedside Urine Nitrite - Negative Bedside Urine Leukocytes - Negative Esterase Point of care testing: Point of Care Testing Test Results Negative Urine Dip Bedside Urine Glucose Negative Bedside Urine Bilirubin - Negative Bedside Urine Ketone +++ 80 Urine Specific [place] 1.015 Bedside Urine Occult Blood - Negative Bedside Urine pH 6.0 Bedside Urine Protein +/- 15 Bedside Urine Urobilinogen - Negative Bedside Urine Nitrite - Negative Bedside Urine Leukocytes - Negative Esterase <Talia Erasto, DO - Last Filed: 10/01/21 11:02> Lab Data Labs: Lab Results 09/30/21 09/30/21 09/30/21 Range/Units 08:30 08:40 08:40 WBC 23.1 H (4.5-11.0) X10^3/uL RBC 5.05 (4.0-5.2) X10^6/uL Hgb 13.4 (12.0-16.0) g/dL Hct 39.4 (36-46) % MCV 78.1 L (80-100) fL MCH 26.6 (26-34) PG MCHC 34.0 (30-36) % RDW 15.4 H (11.6-14.8) % Plt Count 492 H (150-400) X10^3/uL Neut % (Auto) 89.9 H (50-75) % Lymph % (Auto) 6.0 L (25-40) % [place] % (Auto) 3.3 (3-14) % Eos % (Auto) 0.6 L (2-4) % Baso % (Auto) 0.2 (0-2) % Neut # (Auto) 21823 H (9277-9040) /uL Lymph # (Auto) 1400 (9552-1965) /uL [place] # (Auto) 800 (0-900) /uL Eos # (Auto) 100 (0-450) /uL Baso # (Auto) 0 (0-100) /uL Sodium 137 (137-145) mmol/L Potassium 4.4 (3.4-5.1) mmol/L Chloride 98 (98-107) mmol/L Carbon Dioxide 23 (22-32) mmol/L BUN 12 (7-17) mg/dL Creatinine 0.71 (0.52-1.04) mg/dL Estimated GFR > 60 (>60) mL/min BUN/Creatinine Ratio 16.9 (6-22) Glucose 126 H (70-100) mg/dL Lactate 4.0 H (0.7-2.1) mmol/L Calcium 9.6 (8.4-10.2) mg/dL Magnesium 1.6 (1.6-2.3) mg/dL Total Bilirubin 0.7 (0.2-1.3) mg/dL AST 30 (14-36) IU/L ALT 20 (<35) IU/L Alkaline Phosphatase 130 H (38-126) U/L Total Protein 9.5 H (6.3-8.2) g/dL Albumin 5.0 (3.5-5.0) g/dL Globulin 4.5 H (1.7-4.1) g/dL Albumin/Globulin Ratio 1.1 (1.0-2.8) Lipase 109 (23-300) U/L Urine RBC (0-5/HPF) Urine WBC (0-5/HPF) Ur Squamous Epith Cells (0-5/HPF) Urine Bacteria (None) Ur Culture Indicated? U Opiates 300ng/mL cut (Negative) Ur Oxycodone Screen (Negative) Urine Methadone Screen (Negative) Ur Barbiturates Screen (Negative) U Tricyclic Antidepress (Negative) Ur Phencyclidine Scrn (Negative) Ur Amphetamines Screen (Negative) U Methamphetamines Scrn (Negative) Ur MDMA Scrn (Ecstasy) (Negative) U Benzodiazepines Scrn (Negative) Urine Cocaine Screen (Negative) U Marijuana (THC) Screen (Negative) SARS-CoV-2 (PCR) (Negative) 09/30/21 09/30/21 09/30/21 Range/Units 09:05 11:24 12:02 WBC (4.5-11.0) X10^3/uL RBC (4.0-5.2) X10^6/uL Hgb (12.0-16.0) g/dL Hct (36-46) % MCV (80-100) fL MCH (26-34) PG MCHC (30-36) % RDW (11.6-14.8) % Plt Count (150-400) X10^3/uL Neut % (Auto) (50-75) % Lymph % (Auto) (25-40) % [place] % (Auto) (3-14) % Eos % (Auto) (2-4) % Baso % (Auto) (0-2) % Neut # (Auto) (3122-6304) /uL Lymph # (Auto) (9120-6961) /uL [place] # (Auto) (0-900) /uL Eos # (Auto) (0-450) /uL Baso # (Auto) (0-100) /uL Sodium (137-145) mmol/L Potassium (3.4-5.1) mmol/L Chloride (98-107) mmol/L Carbon Dioxide (22-32) mmol/L BUN (7-17) mg/dL Creatinine (0.52-1.04) mg/dL Estimated GFR (>60) mL/min BUN/Creatinine Ratio (6-22) Glucose (70-100) mg/dL Lactate 0.8 (0.7-2.1) mmol/L Calcium (8.4-10.2) mg/dL Magnesium (1.6-2.3) mg/dL Total Bilirubin (0.2-1.3) mg/dL AST (14-36) IU/L ALT (<35) IU/L Alkaline Phosphatase (38-126) U/L Total Protein (6.3-8.2) g/dL Albumin (3.5-5.0) g/dL Globulin (1.7-4.1) g/dL Albumin/Globulin Ratio (1.0-2.8) Lipase (23-300) U/L Urine RBC (0-5/HPF) Urine WBC (0-5/HPF) Ur Squamous Epith Cells (0-5/HPF) Urine Bacteria (None) Ur Culture Indicated? U Opiates 300ng/mL cut Negative (Negative) Ur Oxycodone Screen Negative (Negative) Urine Methadone Screen Negative (Negative) Ur Barbiturates Screen Negative (Negative) U Tricyclic Antidepress Negative (Negative) Ur Phencyclidine Scrn Negative (Negative) Ur Amphetamines Screen Negative (Negative) U Methamphetamines Scrn Negative (Negative) Ur MDMA Scrn (Ecstasy) Negative (Negative) U Benzodiazepines Scrn Negative (Negative) Urine Cocaine Screen Negative (Negative) U Marijuana (THC) Screen Positive H (Negative) SARS-CoV-2 (PCR) Negative (Negative) 09/30/21 09/30/21 Range/Units 12:02 15:52 WBC 16.6 H (4.5-11.0) X10^3/uL RBC 4.43 (4.0-5.2) X10^6/uL Hgb 11.7 L (12.0-16.0) g/dL Hct 34.5 L (36-46) % MCV 78.0 L (80-100) fL MCH 26.4 (26-34) PG MCHC 33.8 (30-36) % RDW 15.8 H (11.6-14.8) % Plt Count 448 H (150-400) X10^3/uL Neut % (Auto) 79.0 H (50-75) % Lymph % (Auto) 15.3 L (25-40) % [place] % (Auto) 5.2 (3-14) % Eos % (Auto) 0.3 L (2-4) % Baso % (Auto) 0.2 (0-2) % Neut # (Auto) 40061 H (8062-4298) /uL Lymph # (Auto) 2500 (8750-8317) /uL [place] # (Auto) 900 (0-900) /uL Eos # (Auto) 100 (0-450) /uL Baso # (Auto) 0 (0-100) /uL Sodium (137-145) mmol/L Potassium (3.4-5.1) mmol/L Chloride (98-107) mmol/L Carbon Dioxide (22-32) mmol/L BUN (7-17) mg/dL Creatinine (0.52-1.04) mg/dL Estimated GFR (>60) mL/min BUN/Creatinine Ratio (6-22) Glucose (70-100) mg/dL Lactate (0.7-2.1) mmol/L Calcium (8.4-10.2) mg/dL Magnesium (1.6-2.3) mg/dL Total Bilirubin (0.2-1.3) mg/dL AST (14-36) IU/L ALT (<35) IU/L Alkaline Phosphatase (38-126) U/L Total Protein (6.3-8.2) g/dL Albumin (3.5-5.0) g/dL Globulin (1.7-4.1) g/dL Albumin/Globulin Ratio (1.0-2.8) Lipase (23-300) U/L Urine RBC 0-1/hpf (0-5/HPF) Urine WBC 0-1/hpf (0-5/HPF) Ur Squamous Epith Cells 5-10 /hpf H (0-5/HPF) Urine Bacteria Few (2-10) H (None) Ur Culture Indicated? Cult not indicated U Opiates 300ng/mL cut (Negative) Ur Oxycodone Screen (Negative) Urine Methadone Screen (Negative) Ur Barbiturates Screen (Negative) U Tricyclic Antidepress (Negative) Ur Phencyclidine Scrn (Negative) Ur Amphetamines Screen (Negative) U Methamphetamines Scrn (Negative) Ur MDMA Scrn (Ecstasy) (Negative) U Benzodiazepines Scrn (Negative) Urine Cocaine Screen (Negative) U Marijuana (THC) Screen (Negative) SARS-CoV-2 (PCR) (Negative) Point of Care Testing Test Results Negative Urine Dip Bedside Urine Glucose Negative Bedside Urine Bilirubin - Negative Bedside Urine Ketone +++ 80 Urine Specific [place] 1.015 Bedside Urine Occult Blood - Negative Bedside Urine pH 6.0 Bedside Urine Protein +/- 15 Bedside Urine Urobilinogen - Negative Bedside Urine Nitrite - Negative Bedside Urine Leukocytes - Negative Esterase Point of care testing: Point of Care Testing Test Results Negative Urine Dip Bedside Urine Glucose Negative Bedside Urine Bilirubin - Negative Bedside Urine Ketone +++ 80 Urine Specific [place] 1.015 Bedside Urine Occult Blood - Negative Bedside Urine pH 6.0 Bedside Urine Protein +/- 15 Bedside Urine Urobilinogen - Negative Bedside Urine Nitrite - Negative Bedside Urine Leukocytes - Negative Esterase MDM Narrative Medical decision making narrative: 21-year-old woman presents with nausea significant vomiting, abdominal pain with prior episodes of similar. She is not able to keep seizure medications or anxiety medications down. I suspect there is small component of benzodiazepine withdrawal as well as significant dehydration. She does not look like she has a urinary tract infection, nausea has been controlled with Zofran. Chest x-ray does not suggest infection. With prior episodes of significant hyperemesis she has had associated leukocytosis that has not turned out to be infectious in etiology and likely is deep margination secondary to the intensity of her vomiting. Lactic is elevated which could be simply dehydration from the vomiting. Blood cultures are pending. With her reported home fevers and chills, will begin antibiotics and moved to CT scan of the abdomen to look for other infectious source. CT scan returns unremarkable. Nausea is again increasing and with the mention of a p.o. challenge and water begins vomiting again. Troponin it came back down to normal with hydration, will repeat white blood cell count. At this point with persistent nausea and unexplained abdominal pain will recommend hospitalization for observation, treatment of the nausea and continued hydration. 4pm acute seizure like activity. 3 minutes intermittent tonic-clonic like activity with waxing and waning consciousness. Is maintaining airway. Repeats that she is confused is able to speak even with increased overall motor activity. She is given 2 mg of IV Versed with significant relief. Will load her with an additional 500 mg of Keppra, was only given a g this morning. Still complaining of abdominal pain, still vomiting. On further questioning she states that her primary care doctor has diagnosed her seizures and has started her on the clonazepam, lamotrigine and Keppra and she has not yet had confirmatory testing with a neurologist. 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 Current symptoms may be exacerbated by benzodiazepine withdrawal, she had been prescribed clonazepam 4 mg b.i.d. and it sounds like she has not had this for a couple of days due to the vomiting. She had been on higher doses of Xanax and over a 6 month period of time weaned off the Xanax completely. Reviewed her CT scan with her. The radiologist states that he clearly sees the appendix, its normal and she notes that she absolutely had appendicitis and has her appendix removed [id number] reviewed with [facility] for available hospital beds currently none. Care transferred to Dr Mcdonald 10/01/21 [place] Patient signed out to me of seen and evaluated her myself. Awake alert sitting in bed and texting. No vomiting for about 6 hours. She finally slept. She now complains that she is feeling extremely nauseous and if she coughs she is going to throw up. There is water at bedside. She reports having at least 10 seizures yesterday however nursing staff reports that she was awake alert and stating that she was having a seizure. She obviously did have at least 1 seizure yesterday she was loaded with Keppra from given a 2nd dose of Keppra IV. I suspect that breakthrough seizure is secondary to inability to swallow and tolerate seizure medications. She states she was diagnosed with seizures when she was 4 years old in the emergency department and she has never been seen by a neurologist and her primary he has only been filling her medications. It does seem reasonable that she would benefit from at least an outpatient Neurology consultation and further workup however probably not emergent at this time. Seems to be multiple factorial including benzodiazepine withdrawal, pseudoseizures. [id number] to patient's room concern for seizure activity. Partner states that she was shaking episode that lasted 30 seconds. She just got up to go to the bathroom so she was kept up to the monitor. Patient very stay awake alert not postictal can not remember what happened. 935 Dr. Arnold, urology at [facility] updated patient's symptoms test results states increase Keppra to 1000 b.i.d. outpatient follow-up for EEG is recommended At this time patient is tolerating fluids. Feels better. Sounds like there is a referral in for Neurology at [facility] but that has not gone through yet. Will increase Keppra to 1000 b.i.d. as Neurology recommended. And discharged home with anti nausea medication. She is given her 1st dose of Keppra 1000 mg here in the morning by mouth. Critical Care Time <Shara Munson MD - Last Filed: 10/05/21 17:59> Critical Care Time Critical Care Time: Yes Total Critical Care Time: 36 Attestation: Critical care time is separate from other billable procedures. There is a high probability of a significant, sudden or life-threatening deterioration that requires my full and direct attention, intervention and personal management. This critical care time includes consultation with family and other consulting doctors, review of records, and interpretation of data from labs, EKGs and imaging as well as managements of concern for sepsis, undifferentiated abdominal pain and acute seizure management with IV medications Discharge Plan Departure Patient Disposition: Home Clinical Impression: Seizure, Abdominal pain, Vomiting, Acute dehydration, Agoraphobia Instructions: Seizure Disorder -- Adult Activity Restrictions/Additional Instructions: DO NOT DRIVE FOR 6 MONTHS or UNTIL SEIZURE-FREE *You have been diagnosed with seizure disorder in his cyclic vomiting *What to do: At this time increase fluids as tolerated. He will need to see Neurology as an outpatient. Please call for referral *Continue to take medications as directed--> [facility] Phenergan 25 mg every 6 hours if needed for nausea or vomiting Zofran 4 mg every 8 hours if needed for nausea vomiting Keppra 1000 mg twice a day *Follow up with your primary care provider in 2-3 days or call [phone] *Return to ER if you should have persistent vomiting recurrent seizure activity or any new, worsening or concerning symptoms Prescriptions: New levetiracetam [Keppra] 1,000 mg tablet 1,000 mg PO BID Qty: 90 0RF promethazine 25 mg suppository 25 mg NM Q6H PRN (Reason: nausea and vomiting) Qty: 12 0RF ondansetron 4 mg tablet,disintegrating 4 mg PO Q8H PRN (Reason: nausea and vomiting) Qty: 10 0RF No Action levetiracetam [Keppra] 500 mg tablet 1,000 mg PO BID Qty: 30 0RF cetirizine 10 mg Tablet 10 mg PO DAILY alprazolam [Xanax] 1 mg Tablet 1 mg PO BID PRN (Reason: Anxiety) spironolactone 100 mg Tablet 100 mg PO BID Rx Instructions: 100mg morning, 150mg hs trazodone 100 mg Tablet 200 mg PO BEDTIME clonazepam [Klonopin] 2 mg Tablet 4 mg PO BID progesterone micronized 200 mg capsule 200 mg PO DAILY Rx Instructions: HS propranolol 20 mg Tablet 20 mg PO BID lamotrigine [Lamictal] 100 mg Tablet 50 mg PO DAILY levothyroxine 50 mcg Capsule 50 mcg PO DAILY aspirin 81 mg Capsule 81 mg PO DAILY estradiol cypionate ondansetron 4 mg tablet,disintegrating 4 mg PO Q8H Qty: 10 0RF levetiracetam [Keppra] 500 mg tablet 500 mg PO Q12H Qty: 30 0RF ondansetron 4 mg tablet,disintegrating 4 mg PO Q6H PRN (Reason: nausea and vomiting) Qty: 7 0RF pantoprazole [Protonix] 40 mg tablet,delayed release (DR/EC) 40 mg PO DAILY Qty: 30 0RF ondansetron 4 mg tablet,disintegrating 4 mg PO Q8H PRN (Reason: nausea and vomiting) Qty: 10 0RF Referrals: Mirna Negro DO [Primary Care Provider] - Visit Report Forms: Patient Portal/API ED Sign-out <Shara Munson MD - Last Filed: 10/05/21 17:59> Cosign ED Attending Cosignature Attestation: I was immediately available in the department for consultation throughout this patient's visit. I agree with documentation as above. Shara Munson MD
[2021-09-30 09:36] LABS: COVID19 -Nasal RAPID Negative (Negative)
[2021-09-30] MEDS: HYDROMORPHONE 0.5 MG INJ IV ×4 (09:49→15:40)
[2021-09-30] MEDS: diazePAM 10 MG/2 ML SYRINGE 5 MG IV ×2 (09:54→17:32)
--- NOTE | 2021-09-30 11:01 | DI.RAD.S_ITS ---
PROCEDURE: XR CHEST 1V INDICATIONS: elevated white count TECHNIQUE: One view of the chest was acquired. COMPARISON: [facility], CR, XR CHEST 2V, 06/09/2021, 10:07. FINDINGS: Surgical changes and devices: None. Lungs and pleura: Lungs are clear. No pleural effusions or pneumothorax. Mediastinum: Mediastinal contours appear normal. Heart size is normal. Bones and chest wall: No suspicious bony lesions. Overlying soft tissues appear unremarkable. IMPRESSION: No acute cardiopulmonary pathology. Dictated by: García Albrecht M.D. on 09/30/2021 at 11:19 Approved by: Garcaí Albrecht M.D. on 09/30/2021 at 11:19
[2021-09-30] MEDS: PANTOPRAZOLE 40 MG VIAL 80 MG IV (11:22)
[2021-09-30 12:09] LABS: UR Morphine/Opiate cutoff 300 Negative (Negative); Ur Creatinine Normal (Normal); Ur Specific Gravity Normal (Normal); Urine Amphetamines Negative (Negative); Urine Barbiturates Negative (Negative); Urine Benzodiazepines Negative (Negative); Urine Cocaine Negative (Negative); Urine MDMA Negative (Negative); Urine Methadone Negative (Negative); Urine Methamphetamines Negative (Negative); Urine Oxycodone Negative (Negative); Urine Phencyclidine Negative (Negative); Urine Tetrahydrocannabinol Positive (Negative); Urine Tricyclic Antidepressant Negative (Negative); Urine pH Normal (Normal)
[2021-09-30] MEDS: PIPERACILLIN/TAZO 4.5 GM in SODIUM CHLORIDE 0.9% 100 ML IV (12:10)
[2021-09-30] MEDS: SODIUM CHLORIDE 0.9% 1,000 ML 150 ML IV (12:10)
[2021-09-30 12:12] LABS: Bacteria Urine Few (2-10); Culture Indicated Urine Cult Not Indicated; RBC Urine 0-1/HPF (0-5/HPF); Squamous Epithelial Cell Urine 5-10 /HPF (0-5/HPF); WBC Urine 0-1/HPF (0-5/HPF)
[2021-09-30 13:12] LABS: Reflexed Lactate in 2 Hours Y
[2021-09-30 13:26] LABS: Lactate 2HR (Lactic Acid Rflx) 0.8 mmol/L (0.7-2.1)
--- NOTE | 2021-09-30 14:02 | DI.CT.S_ITS ---
PROCEDURE: CT ABDOMEN PELVIS W CON INDICATIONS: abdominal pain, fever, leukocytosis TECHNIQUE: After the administration of intravenous contrast, axial sections acquired from the lung bases to the pubic symphysis. Coronal and sagittal reformats were performed. For radiation dose reduction, the following was used: automated exposure control, adjustment of mA and/or kV according to patient size. COMPARISON: [facility], CT, CT ABDOMEN PELVIS WO CON, 05/04/2021, 22:24. FINDINGS: Image quality: Excellent. Lung bases: Dependent atelectasis in posterior aspect of bilateral lung bases are seen. Visualized bilateral breast implants are grossly intact.. Heart: No significant findings. ABDOMEN: Liver: Moderate hepatic steatosis is seen, no discrete hepatic lesion. Gallbladder: Within normal limits. Biliary ducts: Unremarkable. Pancreas: Unremarkable. Spleen: Unremarkable. Adrenal Glands: Unremarkable. Kidneys and Ureters: No stones or hydronephrosis. No hydroureter. Stomach and Bowel: Again noted is prior partial right colectomy with postsurgical changes. Surgical anastomosis appears intact. There is also prior sigmoid colon resection with postsurgical changes and intact anastomosis. No bowel obstruction. Appendix is visualized and is within normal limits. No abnormal bowel wall thickening. No mesenteric fat stranding. No abscess collection. Peritoneum: No abnormal intraperitoneal fluid. No free air. Ventral Wall: No hernias. Abdominal Nodes: No retroperitoneal or mesenteric adenopathy by size criteria. Vessels: Aorta and inferior vena cava are normal in size. PELVIS: Pelvic Organs: Unremarkable. Bladder: Unremarkable. Pelvic Nodes: No enlarged lymph nodes. Miscellaneous: No hernias are seen. Bones: No suspicious bony lesion. No acute vertebral body compression fracture. IMPRESSION: 1. No acute inflammatory process is seen in abdomen or pelvis. No free fluid or free air. Normal appendix. 2. Prior partial bowel resection with postsurgical changes. No bowel obstruction. No abscess collection. 3. Hepatic steatosis, no discrete hepatic lesion. Dictated by: García Albrecht M.D. on 09/30/2021 at 15:18 Approved by: García Albrecht M.D. on 09/30/2021 at 15:21
[2021-09-30 16:00] LABS: Add Manual Diff / Slide Review NO; Basophils Absolute Auto 0 /uL (0-100); Basophils Percent Auto 0.2 % (0-2); Eosinophils Absolute Auto 100 /uL (0-450); Eosinophils Percent Auto 0.3 % (2-4); Hematocrit 34.5 % (36-46); Hemoglobin 11.7 g/dL (12.0-16.0); Lymphocytes Absolute Auto 2500 /uL (1100-4500); Lymphocytes Percent Auto 15.3 % (25-40); Mean Corpuscular HGB Conc 33.8 % (30-36); Mean Corpuscular Hemoglobin 26.4 PG (26-34); Monocytes Absolute Auto 900 /uL (0-900); Monocytes Percent Auto 5.2 % (3-14); Neutrophils Absolute Auto 13100 /uL (1500-7000); Platelet Count 448 X10^3/uL (150-400); Red Blood Cell Count 4.43 X10^6/uL (4.0-5.2); Red Cell Distribution Width 15.8 % (11.6-14.8); White Blood Cell Count 16.6 X10^3/uL (4.5-11.0)
[2021-09-30] MEDS: MIDAZOLAM 5 MG/ML VIAL (16:21)
--- NOTE | 2021-09-30 16:21 | PC.NURSE ---
Pt had a seizure like episode. Full body involvement. Able to speak during episode and requested to be repositioned. Dr. Munson at bedside. Was not incontinent. Did not need suctioning. O2sat greater then 95% durring.
[2021-09-30] MEDS: HALOPERIDOL 5 MG/ML VIAL 2 MG IV (17:05)
[2021-09-30] MEDS: levETIRAcetam 500 MG in SODIUM CHLORIDE 0.9% 100 ML 420 MG IV (17:05)
--- NOTE | 2021-09-30 17:46 | PC.NURSE ---
Patient is on the wait list at [facility], /, [place]. [facility] are not able to accept anyone else on their wait list.
[2021-09-30] MEDS: PROMETHAZINE 25 MG SUPP PR (21:43)
--- NOTE | 2021-09-30 22:54 | PC.NURSE ---
Pt tolerating PO fluids. Okayd by
--- NOTE | 2021-09-30 22:55 | PC.NURSE ---
Pt has had a total of 5 seizures through out the shift. Lasting less then 30 seconds. Never needing O2 or suctioning. No vomiting or loss of bowel or bladder during seizure episodes. No Keppra available in the hospital. MD and coordinator aware. Pt declining valium d/t making her feel fuzzy. Pt doing very well with [place] phenergan. Tolerating fluids.
[2021-10-01] VITALS (13 sets, daily range): BP systolic 96–121; BP diastolic 55–67; PULSE 61–100; RESP 18; O2SAT 95–100
[2021-10-01] MEDS: TRAZODONE 100 MG TABLET PO (01:47)
--- NOTE | 2021-10-01 06:47 | PC.NURSE ---
Pt was awake for part of the night, requested sleep aid and was given trazodone with good results. No seizures or vomiting this shift commander.
--- NOTE | 2021-10-01 07:34 | PC.NURSE ---
up to BR, strong steady independent gait.
[2021-10-01] MEDS: ONDANSETRON 4 MG/2 ML INJ IV (08:59)
[2021-10-01] MEDS: PANTOPRAZOLE 40 MG VIAL IV (09:00)
[2021-10-01] MEDS: levETIRAcetam 250 MG TABLET 1000 MG PO (10:33)
--- NOTE | 2021-10-01 10:34 | PC.NURSE ---
pt made aware that neuro transfer not indicatedat this time. pt given ice chips and was able to tolerate. plan for outpatient neuro consult which pt already has a referral for through her PCP. Advised she is unable to drive until cleared by neuro. Keppra dose increased at todays visit. Pt calling family member for a ride home
== END 2021-10-01 10:50 | disposition home or self-care (01) ==
PROVIDERS: Emergency Medicine; Emergency Provider Emergency Medicine; PCP Family Medicine
DX: R56.9 Unspecified convulsions (principal); R10.9 Unspecified abdominal pain; R11.10 Vomiting, unspecified; R50.9 Fever, unspecified; R55 Syncope and collapse; E86.0 Dehydration; F40.00 Agoraphobia, unspecified
CPT/HCPCS: 36415; 71045; 74177; 80053; 80305; 81003; 81015; 81025; 83605; 83690; 83735; 85025; 87040; 87635; 93005; 93010; 96361; 96365; 96367; 96375; 96376; 99284; 99291; C9803; C9113; J1170; J1200; J1630; J1953; J2250; J2405; J2543; J3360

== ENCOUNTER 2021-11-10 06:42 | Emergency (ER) | payer MEDICARE, MEDICAID, SELFPAY ==
[2021-11-10] VITALS (7 sets, daily range): BP systolic 134–141; BP diastolic 93–94; PULSE 80–98; RESP 18; TEMP 36.4; O2SAT 97–100; BMI 28.0
--- NOTE | 2021-11-10 07:07 | ED_ITS ---
HPI - Headache General Chief Complaint: Headache Stated Complaint: n/v/d headache Time Seen by Provider: 11/10/21 07:07 Mode of arrival: Ambulatory History of Present Illness HPI Narrative: Patient is a 21-year-old male to female transgender history of migraines a nxiety, seizures at her phobia presenting today with migraine headache. Says it has been ongoing for while definitely worse today. Been throwing up all night. The did to light. Feels like a typical migraine. Took Fioricet which usually helps this morning but it seems like it did not. Has all-over abdominal pain and headache. Thinks that the vomiting and abdominal pain came after the headache. Denies any fever chills neck pain nausea vomiting. Related Data Home Medications Medication Instructions Recorded Confirmed alprazolam 1 mg tablet (Xanax) 1 mg PO BID PRN Anxiety 05/04/21 05/04/21 aspirin 81 mg capsule 81 mg PO DAILY 05/04/21 05/04/21 cetirizine 10 mg tablet 10 mg PO DAILY 05/04/21 05/04/21 clonazepam 2 mg tablet (Klonopin) 4 mg PO BID 05/04/21 05/04/21 estradiol cypionate 05/04/21 lamotrigine 100 mg tablet 50 mg PO DAILY 05/04/21 05/04/21 (Lamictal) levothyroxine 50 mcg capsule 50 mcg PO DAILY 05/04/21 05/04/21 progesterone micronized 200 mg 200 mg PO DAILY 05/04/21 05/04/21 capsule propranolol 20 mg tablet 20 mg PO BID 05/04/21 05/04/21 spironolactone 100 mg tablet 100 mg PO BID 05/04/21 05/04/21 trazodone 100 mg tablet 200 mg PO BEDTIME 05/04/21 05/04/21 Previous Rx's Medication Instructions Recorded ondansetron 4 mg disintegrating 4 mg PO Q8H #10 tabs 05/05/21 tablet levetiracetam 500 mg tablet 500 mg PO Q12H #30 tabs 05/20/21 (Keppra) ondansetron 4 mg disintegrating 4 mg PO Q6H PRN nausea and 05/20/21 tablet vomiting #7 tabs pantoprazole 40 mg tablet,delayed 40 mg PO DAILY #30 tabs 06/09/21 release (Protonix) ondansetron 4 mg disintegrating 4 mg PO Q8H PRN nausea and 06/18/21 tablet vomiting #10 tabs levetiracetam 500 mg tablet 1,000 mg PO BID #30 tabs 09/25/21 (Keppra) levetiracetam 1,000 mg tablet 1,000 mg PO BID #90 tabs 10/01/21 (Keppra) ondansetron 4 mg disintegrating 4 mg PO Q8H PRN nausea and 10/01/21 tablet vomiting #10 tabs promethazine 25 mg rectal 25 mg PA Q6H PRN nausea and 10/01/21 suppository vomiting #12 ea promethazine 25 mg rectal 25 mg PA Q6H PRN nausea and 11/10/21 suppository vomiting #12 ea Allergies Allergy/AdvReac Type Severity Reaction Status Date / Time adhesive Allergy Verified 09/30/21 08:50 aripiprazole [From Abilify] Allergy Verified 09/30/21 08:50 Hutchison And Derivatives Allergy Verified 09/30/21 08:50 latex Allergy Verified 09/30/21 08:50 sumatriptan Allergy Verified 09/30/21 08:50 ketorolac [From Toradol] AdvReac Verified 09/30/21 09:23 Review of Systems Review of Systems Narrative: GENERAL: Denies chills, fatigue, malaise, fever, sweats, travel HEENT: Denies sinus pain, ear pain, sore throat, difficulty swallowing, neck pain RESPIRATORY: Denies dyspnea, cough, wheezing, hemoptysis, sputum. CARDIOVASCULAR: Denies chest pain, palpitations, orthopnea, edema GASTROINTESTINAL: Denies nausea, vomiting, abdominal pain, diarrhea, constipation, melena. : Denies dysuria, frequency, incontinence, hematuria, urinary retention, flank pain. MUSCULOSKELETAL: Denies weakness, joint pain, or bony pain SKIN: No rash, no erythema, no pruritus NEUROLOGIC: + headache PSYCHIATRIC: No concerning psychosocial issues. 12 point review of systems is negative except for those stated above and HPI Patient History Medical History Agoraphobia Seizure Surgical History Transgender, status post gender affirmation surgery Social History Smoking Status: Current every day smoker Smoking Status: Current every day smoker tobacco type: cigarettes, e-cigarettes and vaping alcohol intake frequency: 0-2 drinks per day Substance Use Type: marijuana and methamphetamine Exam Initial Vital Signs Initial Vital Signs: Vital Signs Temperature 97.6 F 11/10/21 06:56 Pulse Rate 98 H 11/10/21 06:56 Respiratory Rate 18 11/10/21 06:56 Blood Pressure 141/93 H 11/10/21 06:56 Pulse Oximetry 97 11/10/21 06:56 Oxygen Delivery Method 11/10/21 06:56 GENERAL: Alert 21-year-old appears uncomfortable and in no acute distress. HEENT: Head atraumatic,EOMI, pupils reactive, face symmetric, moist mucous membranes CARDIOVASCULAR: Regular rate and rhythm without murmurs, rubs or gallops. RESPIRATORY: Breath sounds equal bilaterally, no wheezes rales or rhonchi. ABDOMEN: Soft, nontender. Normoactive bowel sounds all 4 quadrants. No guarding or rebound. EXTREMITIES: Normal range of motion, no clubbing or edema. Neurovascularly intact NEUROLOGICAL: Alert and oriented x4.Normal gait and speech. No cranial nerve deficits SKIN: Warm, dry, no laceration, no petechiae, no rashes or lesions. Course Orders Ordered: Discontinued Medications Dihydroergotamine Mesylate (Dihydroergotamine 1 Mg/Ml Ampul) 1 mg IV NOW ONE Stop: 11/10/21 08:38 Last Admin: 11/10/21 09:06 Dose: 1 mg Documented By: JESSE Sodium Chloride (Normal Saline 0.9%) 1,000 mls @ 1,000 mls/hr IV CONT MIR Last Infusion: 11/10/21 09:16 Dose: 0 mls/hr Documented By: Admin: 11/10/21 07:15 Dose: 1,000 mls/hr Documented By: JESSE Metoclopramide HCl (Metoclopramide 10 Mg/2 Ml Inj) 10 mg IV NOW ONE Stop: 11/10/21 09:18 Last Admin: 11/10/21 09:20 Dose: 10 mg Documented By: JESSE Ondansetron HCl (Ondansetron 4 Mg/2 Ml Inj) 4 mg IV NOW ONE Stop: 11/10/21 07:08 Last Admin: 11/10/21 07:15 Dose: 4 mg Documented By: JESSE Pantoprazole Sodium (Pantoprazole 40 Mg Vial) 40 mg IV NOW ONE Stop: 11/10/21 07:08 Last Admin: 11/10/21 07:15 Dose: 40 mg Documented By: JESSE Promethazine HCl (Promethazine 25 Mg Tablet) 25 mg PO NOW ONE Stop: 11/10/21 10:26 Last Admin: 11/10/21 10:38 Dose: 25 mg Documented By: JESSE Vital Signs Vital signs: Vital Signs - 8 hr 11/10/21 06:56 11/10/21 07:25 11/10/21 07:30 Temperature 97.6 F Pulse Rate 98 H 88 84 Respiratory Rate 18 Blood Pressure 141/93 H Pulse Oximetry 97 100 99 Oxygen Delivery Method Room Air 11/10/21 08:00 11/10/21 08:30 11/10/21 09:00 Temperature Pulse Rate 87 91 H 82 Respiratory Rate Blood Pressure Pulse Oximetry 98 99 98 Oxygen Delivery Method MDM - Headache Lab Data Result diagrams: 11/10/21 09:00 11/10/21 09:00 Labs: Lab Results 11/10/21 11/10/21 11/10/21 Range/Units 09:00 09:00 09:53 WBC 13.5 H (4.5-11.0) X10^3/uL RBC 4.55 (4.0-5.2) X10^6/uL Hgb 11.9 L (12.0-16.0) g/dL Hct 36.5 (36-46) % MCV 80.1 (80-100) fL MCH 26.1 (26-34) PG MCHC 32.6 (30-36) % RDW 14.8 (11.6-14.8) % Plt Count 396 (150-400) X10^3/uL Neut % (Auto) 88.6 H (50-75) % Lymph % (Auto) 7.1 L (25-40) % [place] % (Auto) 3.7 (3-14) % Eos % (Auto) 0.4 L (2-4) % Baso % (Auto) 0.2 (0-2) % Neut # (Auto) 40470 H (4561-4902) /uL Lymph # (Auto) 1000 L (1888-8691) /uL [place] # (Auto) 500 (0-900) /uL Eos # (Auto) 100 (0-450) /uL Baso # (Auto) 0 (0-100) /uL Sodium 139 (137-145) mmol/L Potassium 3.8 (3.4-5.1) mmol/L Chloride 103 (98-107) mmol/L Carbon Dioxide 24 (22-32) mmol/L BUN 10 (7-17) mg/dL Creatinine 0.67 (0.52-1.04) mg/dL Estimated GFR > 60 (>60) mL/min BUN/Creatinine Ratio 14.9 (6-22) Glucose 124 H (70-100) mg/dL Calcium 8.6 (8.4-10.2) mg/dL Total Bilirubin 0.5 (0.2-1.3) mg/dL AST 22 (14-36) IU/L ALT 21 (<35) IU/L Alkaline Phosphatase 152 H (38-126) U/L Total Protein 8.2 (6.3-8.2) g/dL Albumin 4.3 (3.5-5.0) g/dL Globulin 3.9 (1.7-4.1) g/dL Albumin/Globulin Ratio 1.1 (1.0-2.8) Lipase 71 (23-300) U/L Urine Color Yellow Urine Appearance Clear Urine pH 7.0 (4.5-8.0) Ur Specific [place] 1.010 (1.000-1.035) Urine Protein Trace H (Negative) Urine Glucose (UA) Negative (Negative) g/dL Urine Ketones 1+ H (NEGATIVE) Urine Occult Blood Negative (Negative) Urine Nitrate Negative (Negative) Urine Bilirubin Negative (NEGATIVE) Urine Urobilinogen 0.2 (0.2) E.U./dL Ur Leukocyte Esterase Trace H (NEGATIVE) Urine RBC None seen (0-5/HPF) Urine WBC 10-30/hpf H (0-5/HPF) Ur Squamous Epith Cells 0-1 /hpf (0-5/HPF) Amorphous Sediment 2+ Urine Bacteria Few (2-10) H (None) Ur Culture Indicated? Specimen cultured Point of Care Testing Test Results Negative Urine Dip Bedside Urine Glucose Negative Bedside Urine Bilirubin - Negative Bedside Urine Ketone + 15 Urine Specific [place] 1.015 Bedside Urine Occult Blood - Negative Bedside Urine pH 6.5 Bedside Urine Protein + 30 Bedside Urine Urobilinogen - Negative Bedside Urine Nitrite - Negative Bedside Urine Leukocytes + 70 Esterase MDM Narrative Medical decision making narrative: Patient is here frequently for gastroparesis vomiting. Here today for headache. She is feeling significantly better after DHE however still very nauseous. She states that she thinks she is reacting to stress which is why she comes to the emergency department. She actually is supposed to be moving she has been packing she does not know where she is going to live although she does have a hotel room for the next 2 weeks. She also has supposed to meet with a transportation security officer as well as graduate from rehab. She is request Phenergan. She says that she has some suppositories at home she would like 1 now. She does not want Ativan or Benadryl or narcotic medications Discharge Plan Departure Patient Disposition: Home Clinical Impression: Migraine Instructions: DI for Migraine Activity Restrictions/Additional Instructions: *You have been diagnosed with migraine headache *What to do: At this time he had a migraine headache causing her nausea and vomiting. You are probably right is induced from stress. *Continue to take medications as directed Phenergan suppository 25 mg every 6 hours if needed for nausea or vomiting --> SENT TO [facility] *Follow up with your primary care provider in 2-3 days or call [phone] *Return to ER if you should have increasing vomiting, nausea, headache or any new, worsening or concerning symptoms Prescriptions: New promethazine 25 mg suppository 25 mg PA Q6H PRN (Reason: nausea and vomiting) Qty: 12 0RF No Action levetiracetam [Keppra] 500 mg tablet 1,000 mg PO BID Qty: 30 0RF cetirizine 10 mg Tablet 10 mg PO DAILY alprazolam [Xanax] 1 mg Tablet 1 mg PO BID PRN (Reason: Anxiety) spironolactone 100 mg Tablet 100 mg PO BID Rx Instructions: 100mg morning, 150mg hs trazodone 100 mg Tablet 200 mg PO BEDTIME clonazepam [Klonopin] 2 mg Tablet 4 mg PO BID progesterone micronized 200 mg capsule 200 mg PO DAILY Rx Instructions: HS propranolol 20 mg Tablet 20 mg PO BID lamotrigine [Lamictal] 100 mg Tablet 50 mg PO DAILY levothyroxine 50 mcg Capsule 50 mcg PO DAILY aspirin 81 mg Capsule 81 mg PO DAILY estradiol cypionate ondansetron 4 mg tablet,disintegrating 4 mg PO Q8H Qty: 10 0RF levetiracetam [Keppra] 500 mg tablet 500 mg PO Q12H Qty: 30 0RF ondansetron 4 mg tablet,disintegrating 4 mg PO Q6H PRN (Reason: nausea and vomiting) Qty: 7 0RF pantoprazole [Protonix] 40 mg tablet,delayed release (DR/EC) 40 mg PO DAILY Qty: 30 0RF ondansetron 4 mg tablet,disintegrating 4 mg PO Q8H PRN (Reason: nausea and vomiting) Qty: 10 0RF levetiracetam [Keppra] 1,000 mg tablet 1,000 mg PO BID Qty: 90 0RF promethazine 25 mg suppository 25 mg PA Q6H PRN (Reason: nausea and vomiting) Qty: 12 0RF ondansetron 4 mg tablet,disintegrating 4 mg PO Q8H PRN (Reason: nausea and vomiting) Qty: 10 0RF Referrals: Mirna Negro DO [Primary Care Provider] - Visit Report Forms: Patient Portal/API
[2021-11-10] MEDS: ONDANSETRON 4 MG/2 ML INJ IV (07:15)
[2021-11-10] MEDS: SODIUM CHLORIDE 0.9% 1,000 ML 1000 ML IV (07:15)
[2021-11-10] MEDS: PANTOPRAZOLE 40 MG VIAL IV (07:15)
[2021-11-10] MEDS: DIHYDROERGOTAMINE 1 MG/ML AMPUL IV (09:06)
[2021-11-10 09:07] LABS: Add Manual Diff / Slide Review NO; Basophils Absolute Auto 0 /uL (0-100); Basophils Percent Auto 0.2 % (0-2); Eosinophils Absolute Auto 100 /uL (0-450); Eosinophils Percent Auto 0.4 % (2-4); Hematocrit 36.5 % (36-46); Hemoglobin 11.9 g/dL (12.0-16.0); Lymphocytes Absolute Auto 1000 /uL (1100-4500); Lymphocytes Percent Auto 7.1 % (25-40); Mean Corpuscular HGB Conc 32.6 % (30-36); Mean Corpuscular Hemoglobin 26.1 PG (26-34); Mean Corpuscular Volume 80.1 fL (80-100); Monocytes Absolute Auto 500 /uL (0-900); Monocytes Percent Auto 3.7 % (3-14); Neutrophils Absolute Auto 11900 /uL (1500-7000); Neutrophils Percent Auto 88.6 % (50-75); Platelet Count 396 X10^3/uL (150-400); Red Blood Cell Count 4.55 X10^6/uL (4.0-5.2); Red Cell Distribution Width 14.8 % (11.6-14.8); White Blood Cell Count 13.5 X10^3/uL (4.5-11.0)
[2021-11-10 09:18] LABS: Alanine Aminotransferase 21 IU/L (<35); Albumin 4.3 g/dL (3.5-5.0); Albumin Globulin Ratio 1.1 (1.0-2.8); Alkaline Phosphatase 152 U/L (38-126); Aspartate Aminotransferase 22 IU/L (14-36); BUN Creatinine Ratio 14.9 (6-22); Bilirubin Total 0.5 mg/dL (0.2-1.3); Blood Urea Nitrogen 10 mg/dL (7-17); Calcium 8.6 mg/dL (8.4-10.2); Carbon Dioxide 24 mmol/L (22-32); Chloride 103 mmol/L (98-107); Estimated Glomerular Filt Rate > 60 mL/min (>60); Globulin 3.9 g/dL (1.7-4.1); Glucose 124 mg/dL (70-100); HEMOLYSIS < 15 (0-50); Lipase 71 U/L (23-300); Potassium 3.8 mmol/L (3.4-5.1); Sodium 139 mmol/L (137-145); Total Protein 8.2 g/dL (6.3-8.2)
[2021-11-10] MEDS: METOCLOPRAMIDE 10 MG/2 ML INJ IV (09:20)
[2021-11-10 09:57] LABS: Appearance Urine UA CLEAR; Bilirubin Urine UA NEGATIVE (NEGATIVE); Color Urine UA YELLOW; Glucose Urine UA NEGATIVE (Negative); Ketones Urine UA 1+ (NEGATIVE); Leukocyte Esterase Urine UA TRACE (NEGATIVE); Nitrite Urine UA NEGATIVE (Negative); Occult Blood Urine UA NEGATIVE (Negative); Protein Urine UA TRACE (Negative); Urobilinogen Urine UA 0.2 E.U./dL (0.2)
[2021-11-10 10:04] LABS: Amorphous Sediment Urine 2+; Bacteria Urine Few (2-10); Culture Indicated Urine Specimen Cultured; RBC Urine None Seen (0-5/HPF); Squamous Epithelial Cell Urine 0-1 /HPF (0-5/HPF); WBC Urine 10-30/HPF (0-5/HPF)
[2021-11-10] MEDS: PROMETHAZINE 25 MG TABLET PO (10:38)
== END 2021-11-10 11:14 | disposition home or self-care (01) ==
PROVIDERS: Emergency Provider Emergency Medicine; PCP Family Medicine
DX: G43.909 Migraine, unspecified, not intractable, without status migrainosus (principal); R11.0 Nausea
CPT/HCPCS: 36415; 80053; 81001; 81003; 81025; 83690; 85025; 87077; 87086; 87186; 96361; 96374; 96375; 99284; C9113; J1110; J2405; J2765